=== PATIENT | female | born 1965 | race Caucasian/White ===

== ENCOUNTER → 2018-02-21 15:55 | Outpatient (CLI) | payer BC, SELFPAY ==
--- NOTE | 2018-02-21 16:06 | XR_ITS ---
XR foot LT min 3V HISTORY: Pain and swelling on the lateral side of foot ITS.REASON: LEFT FOOT PAIN ORDERING PHYSICIAN: Bette Ko PATIENT AGE: 52 years COMPARISON: None FINDINGS: There is a nondisplaced transverse fracture at the proximal aspect of the fifth metatarsal. There is good alignment. There may be some minimal callus formation developing laterally seen on the AP view. There is mild soft tissue swelling at this region. There is a calcaneal spur at 11 mm. IMPRESSION: Nondisplaced transverse fracture base of fifth metatarsal with some minimal callus formation lateral
== END ==
PROVIDERS: PCP Nurse Practitioner; Visit Provider Nurse Practitioner
DX: M79.672 Pain in left foot (principal)
CPT/HCPCS: 73630

== ENCOUNTER → 2018-03-23 10:06 | Outpatient (CLI) | payer BC, SELFPAY ==
--- NOTE | 2018-03-23 10:16 | XR_ITS ---
XR foot LT min 3V HISTORY: Follow-up fracture ITS.REASON: LT FOOT PAIN ORDERING PHYSICIAN: Bette oK PATIENT AGE: 52 years COMPARISON: 02/21/2018 FINDINGS: Nondisplaced transverse fracture involves the proximal shaft of the fifth metatarsal. There is some callus formation along the inferior aspect of the fracture as seen on the lateral view. Fracture line is still visible. IMPRESSION: Healing fracture nondisplaced proximal shaft of fifth metatarsal
--- NOTE | 2018-03-23 10:16 | XR_ITS ---
XR ankle LT min 3V HISTORY: Pain ITS.REASON: LEFT FOOT PAIN ORDERING PHYSICIAN: Bette Ko PATIENT AGE: 52 years Comparison: None FINDINGS: There is a faint lucency noted along the lateral aspect of the calcaneus on the AP view. This is not demonstrated on the additional views. Possibly due to a nondisplaced avulsion-type fracture. This is not reduplicated on the images of the foot. No other significant anomalies are evident. IMPRESSION: Possible nondisplaced avulsion-type fracture of the lateral mid aspect of the calcaneus
== END ==
PROVIDERS: PCP Nurse Practitioner; Visit Provider Nurse Practitioner
DX: M79.672 Pain in left foot (principal)
CPT/HCPCS: 73610; 73630

== ENCOUNTER → 2018-04-21 11:29 | Outpatient (CLI) | payer BC, SELFPAY ==
--- NOTE | 2018-04-21 11:35 | XR_ITS ---
XR ankle LT min 3V HISTORY: ITS.REASON: LEFT FOOT PAIN ORDERING PHYSICIAN: Bette Ko PATIENT AGE: 53 years Comparison: 03/23/2018 FINDINGS: There is a healing fracture involving the base of the fifth metatarsal. Mild degenerative changes are present at the ankle. No ankle fracture or dislocation evident. Previously described lucency of the calcaneus laterally is not apparent on today's exam. IMPRESSION: Degenerative changes, no acute finding
--- NOTE | 2018-04-21 11:35 | XR_ITS ---
XR foot LT min 3V HISTORY: ITS.REASON: LEFT FOOT PAIN ORDERING PHYSICIAN: Bette Ko PATIENT AGE: 53 years COMPARISON: 03/23/2018 FINDINGS: There is a healing transverse fracture involving the proximal aspect of the fifth metatarsal. The fracture line is somewhat less apparent. There is good alignment of the fracture fragments. Degenerative changes are present in the midfoot. There is 8 mm calcaneal spur and an enthesophyte at the Achilles insertion as before. IMPRESSION: Healing fifth metatarsal fracture
== END ==
PROVIDERS: PCP Nurse Practitioner; Visit Provider Nurse Practitioner
DX: M79.672 Pain in left foot (principal)
CPT/HCPCS: 73610; 73630

== ENCOUNTER → 2018-05-23 13:18 | Outpatient (CLI) | payer BC, SELFPAY ==
--- NOTE | 2018-05-23 13:24 | XR_ITS ---
XR foot LT min 3V HISTORY: Follow-up fracture ITS.REASON: LT FOOT PAIN ORDERING PHYSICIAN: Bette Ko PATIENT AGE: 53 years COMPARISON: 04/21/2018 FINDINGS: Healing fractures present the base of the fifth metatarsal. Fracture line is somewhat less apparent. No new abnormalities evident. There is a calcaneal spur and a enthesophyte at the calcaneus. IMPRESSION: Healing fifth metatarsal fracture with good alignment
== END ==
PROVIDERS: PCP Nurse Practitioner; Visit Provider Nurse Practitioner
DX: M79.672 Pain in left foot (principal)
CPT/HCPCS: 73630

== ENCOUNTER 2018-05-30 08:30 | Outpatient (RCR) | payer BC, SELFPAY | END 2018-05-30 08:35 | disposition home or self-care (01) | LOC: PT 08:30 | PROVIDERS: Visit Provider Podiatrist | DX: S99.192A Other physeal fracture of left metatarsal, initial encounter for closed fracture (principal); M79.672 Pain in left foot; M76.72 Peroneal tendinitis, left leg | CPT/HCPCS: 97033; 97035; 97110; 97163 ==

== ENCOUNTER → 2018-06-27 11:01 | Outpatient (CLI) | payer BC, SELFPAY ==
--- NOTE | 2018-06-27 11:09 | XR_ITS ---
XR foot LT min 3V, XR ankle LT min 3V Ordering Physician: Mag Silva MD Patient Age: 53 years: Female HISTORY: ITS.REASON: LEFT FOOT PAIN,DELAYED HEALING LEFT FOOT FX TECHNIQUE: Left ankle 3 views Left foot 3 views COMPARISON :April 21, 2018 left ankle and left foot ========= LEFT ANKLE joint space is well-maintained. The medial and lateral and posterior malleolus intact. . On the frontal projection there is a slight lucent appearance at the medial corner of the talus which initially raise question regarding subtle possible osteochondral irregularity here.. Although less evident on the oblique view I believe a similar feature was present April 21 study. This likely does reflect a tiny 4 mm active chondral defect or cystic feature at the medial dome of talus. Mild sclerosis also noted about this region. MR is best evaluate osteochondral irregularities of the talus if if desire further evaluation and if pain at ankle.. There are some questioned on previous studies regarding calcaneus. It appears intact. The generous plantar calcaneal spur measuring up to 10 mm length is again noted as well as the spurring, and thus off the insertion of Achilles tendon. These are stable feature -------IMPRESSION------ Left Ankle Suspect subtle tiny 4 mm osteochondral defect or subchondral cyst, just beneath medial corner of the talus. . ======= LEFT FOOT we again see the healing fracture transversing the proximal fifth metatarsal. Towards the base. Sclerotic changes are seen about this area with the fracture line less evident reflecting progressive healing. Toes are intact. Tarsals otherwise appear stable and unremarkable. IMPRESSION----Left Foot.----- Progressive healing at the fracture proximal fifth metacarpal
== END ==
PROVIDERS: PCP Family Medicine; Visit Provider Family Medicine
DX: S92.902G Unspecified fracture of left foot, subsequent encounter for fracture with delayed healing (principal); M79.672 Pain in left foot
CPT/HCPCS: 73610; 73630

== ENCOUNTER → 2018-07-27 12:41 | Outpatient (CLI) | payer BC, SELFPAY ==
--- NOTE | 2018-07-27 12:45 | XR_ITS ---
XR foot wt bearing LT 3V HISTORY: Pain , follow-up fracture ITS.REASON: fracture follow up ORDERING PHYSICIAN: Debbie Gambino DPM PATIENT AGE: 53 years COMPARISON: 06/27/2018 FINDINGS: There is a healing fracture involving the proximal aspect of the fifth metatarsal. Fracture line is somewhat less apparent than when compared to the previous exam. There are hypertrophic changes of the distal aspect of the first metatarsal and the dorsal aspect of the navicular. Calcaneal spur is also noted. IMPRESSION: Healing fifth metatarsal fracture
--- NOTE | 2018-07-27 12:51 | XR_ITS ---
XR ankle LT min 3V HISTORY: ITS.REASON: DELAYED HEALING FX ORDERING PHYSICIAN: Debbie Gambino DPM PATIENT AGE: 53 years Comparison: None FINDINGS: No fracture or dislocation. No lytic or blastic change. There is normal mineralization.. There is a question of a subtalar lucency medially as previously described. Calcaneal spurs noted. IMPRESSION: Nonspecific subtalar lucency medially which may be better evaluated with MRI if clinically desired
== END ==
PROVIDERS: PCP Nurse Practitioner; Visit Provider Podiatrist
DX: T14.8XXA Other injury of unspecified body region, initial encounter (principal)
CPT/HCPCS: 73610; 73630

== ENCOUNTER → 2018-09-12 09:21 | Outpatient (CLI) | payer BC, SELFPAY ==
--- NOTE | 2018-09-12 09:25 | MM_ITS ---
MM Dig screening mamm BI w/CAD CAD Screening COMPARISON: Digital mammograms with CAD 09/10/2014 and 6 month follow-up right breast 03/26/2015 INDICATION: There is a history of breast cancer patient maternal aunt diagnosed after menopause. TECHNIQUE: Standard CC and MLO images were obtained. R2 CAD reviewed. FINDINGS: Moderate heterogenic fibroglandular densities are seen in the central portions of both breasts. There are stable scattered benign-appearing microcalcifications in each breast many of which appear to be typical of sclerosing adenosis. There is no suspicious lesion and there are no suspicious microcalcifications. There are small nodes in both axilla. IMPRESSION: Moderate heterogenic breast density with no suspicious lesion seen BI-RADS Category: 2 Benign Finding(s) RECOMMENDED FOLLOW-UP: 1YR - 1 YEAR FOLLOW-UP (A letter has been sent to the patient regarding results of the study.)
== END ==
PROVIDERS: PCP Nurse Practitioner; Visit Provider Nurse Practitioner
DX: Z12.31 Encounter for screening mammogram for malignant neoplasm of breast (principal)
CPT/HCPCS: 77067

== ENCOUNTER → 2018-11-14 08:42 | Outpatient (CLI) | payer BC, SELFPAY ==
--- NOTE | 2018-11-14 08:44 | MR_ITS ---
MR ankle LT wo/w con ITS.REASON: evaluate for insertional peroneal tendinitis. INDICATION: Left ankle and foot pain and swelling ORDERING PHYSICIAN: Debbie Gambino DPM PATIENT AGE: 53 years Comparison: 07/27/2018 TECHNIQUE: Routine multiplanar multiecho sequences are formed without and with contrast FINDINGS: There is a healing fifth metatarsal fracture at the base of the fifth metatarsal. Increased T2 signal is present in the subcortical region of the talus along its medial aspect measuring approximately 10 mm AP and 6 mm transverse suspicious for an area of osteonecrosis. The anterior-posterior tibiofibular ligaments and the anterior posterior talofibular ligaments appear intact. Deltoid ligament also appears intact. The peroneal brevis has a flattened concave appearance at the tip of the fibula with increased T2 signal just distal to this region which may be seen with partial tear of the peroneal brevis. The peroneal longus tendon is thickened with increased T2 signal just distal to the tip of the fibula and may be discontinuous just distal to this region. There is increased longitudinal T2 signal within the tendon at this area as well. There is increase soft tissue T2 signal at this region as well as increase in T2 signal involving the subcortical portion of the calcaneus at this area. The posterior tibialis, flexor's digitorum longus and flexor hallucis longus tendons as well as the anterior extensor tendons appear intact. Small amount of fluid is present within the subtalar joint in the mid aspect. Small amount fluid is also present along the posterior aspect of the talocalcaneal region. IMPRESSION: 1. There is a split tear in the peroneal longus tendon at and just distal to the tip of the fibula with diffuse increased T2 signal distal to this region suspicious for a complete tear/severe tendinitis. There is some adjacent edema within the calcaneus at this area and may be due to inflammation from the tendinitis or bone contusion. 2. Deformity of the peroneal brevis tendon distal to the tip of the fibula consistent with tendinopathy with possible partial split tear. This tendon is not appear to be completely torn 3. Osteonecrosis of the talar dome medially. 4. Old fifth metatarsal fracture
--- NOTE | 2018-11-14 08:44 | MR_ITS ---
MR foot LT wo/w con CLINICAL INDICATION: Foot pain, lateral foot pain and swelling ITS.REASON: evaluate for insertional peroneal tendinitis. ORDERING PHYSICIAN: Debbie Gambino DPM PATIENT AGE: 53 years Comparison: 07/27/2018 TECHNIQUE: Routine multiplanar multiecho sequences are performed without and with contrast. FINDINGS: There is a healed fracture involving the base of the fifth metatarsal. There are numerous small areas of increased T2 signal involving the head of the fifth metatarsal, medial, intermediate, and lateral cuneiforms, and cuboid. These areas appear to enhance on the fat-sat post contrast enhanced images. Etiology is indeterminate. It is minimally represent areas of subcortical cystic change however, the question 1 enhancement is somewhat concerning. Suggest correlation with a recent radiograph. The most recent study is July 2018. IMPRESSION: 1. Multiple small T2 hyperintensities of the tarsal bones as described above appear to enhance. Suggest correlation with radiograph for further evaluation. Infectious or neoplastic process is a consideration. Subarticular cystic changes/disuse osteoporosis with pseudoenhancement is also considered.
== END ==
PROVIDERS: PCP Nurse Practitioner; Visit Provider Podiatrist
DX: M76.72 Peroneal tendinitis, left leg (principal); S99.192A Other physeal fracture of left metatarsal, initial encounter for closed fracture
CPT/HCPCS: 73720; 73723; A9576

== ENCOUNTER → 2018-11-22 09:29 | Outpatient (CLI) | payer BC, SELFPAY ==
--- NOTE | 2018-11-22 09:42 | XR_ITS ---
XR chest 2V HISTORY: ITS.REASON: HTN ORDERING PHYSICIAN: Debbie Gambino DPM PATIENT AGE: 53 years COMPARISON: None FINDINGS: The cardiomediastinal silhouette and pulmonary vascularity are within normal limits. Nodule is present in left perihilar region consistent with calcified granuloma. This measures 10 mm. An additional granuloma is present in the left lung base laterally.. Degenerative changes of the AC joints and spine No acute bony abnormalities. IMPRESSION: No acute finding
[2018-11-22 10:35] LABS: Basophils # 0.1 K/mm3 (0-0.2); Basophils % 1.3 % (0.1-2.0); Eosinophils # 0.2 K/mm3 (0.0-0.4); Eosinophils % 2.7 % (0.1-12.0); Hematocrit 43.2 % (37.0-47.0); Hemoglobin 14.5 g/dL (12.2-16.2); Lymphocytes # 1.4 K/mm3 (0.7-4.5); Lymphocytes % 20.3 % (10-50); Mean Corpuscular HGB Conc 33.5 g/dL (31.8-35.4); Mean Corpuscular Hemoglobin 30.7 pg (27.0-31.2); Mean Corpuscular Volume 91.5 fl (81-99); Mean Platelet Volume 6.9 fl (7.4-10.4); Monocytes # 0.4 K/mm3 (0.1-1.0); Monocytes % 5.2 % (1.7-9.3); Neutrophils # 4.9 K/mm3 (1.8-7.8); Neutrophils % 70.6 % (37.0-80.0); Platelet Count 389 K/mm3 (142-424); Red Blood Count 4.73 M/mm3 (4.20-5.40); Red Cell Distribution Width 14.2 % (11.5-17.5); White Blood Count 6.9 K/mm3 (4.8-10.8)
[2018-11-22 11:33] LABS: Alanine Aminotransferase 33 U/L (12-78); Albumin Level 4.2 gm/dL (3.4-5.0); Albumin/Globulin Ratio 1.1 (1.1-1.8); Alkaline Phosphatase 98 U/L (46-116); Anion Gap 14.7 mEq/L (5-15); Aspartate Amino Transferase 17 U/L (15-37); Bilirubin,Total 0.5 mg/dL (0.2-1.0); Blood Urea Nitrogen 11 mg/dL (7-18); Calcium 9.4 mg/dL (8.5-10.1); Carbon Dioxide 29 mmol/L (21.0-32.0); Chloride 101 mmol/L (98-107); Creatinine,Serum 0.94 mg/dL (0.55-1.02); Estimated Glomerular Filt Rate 62 ml/min (>60); GFR (African American) 75 ML/MIN (>60); Globulin 3.7 gm/dl (1.3-3.2); Glucose 131 mg/dL (74-106); Potassium 4.7 mmoL/L (3.5-5.1); Sodium 140 mmol/L (136-145); Total Protein,Serum 7.9 gm/dL (6.4-8.2)
== END ==
PROVIDERS: PCP Family Medicine; Visit Provider Podiatrist
DX: Z01.818 Encounter for other preprocedural examination (principal); S86.312A Strain of muscle(s) and tendon(s) of peroneal muscle group at lower leg level, left leg, initial encounter
CPT/HCPCS: 36415; 71046; 80053; 85025

== ENCOUNTER 2018-11-25 10:52 | Day surgery (SDC) | payer BC, SELFPAY ==
[2018-11-24 11:57] VITALS: BMI 41.9
[2018-11-25] VITALS (10 sets, daily range): BP systolic 100–155; BP diastolic 54–84; PULSE 64–92; RESP 18–20; TEMP 37.2–43; O2SAT 93–97
--- NOTE | 2018-11-25 12:42 | XR_ITS ---
XR ankle LT 2V HISTORY: ITS.REASON: LEFT PERONEAL TENDON REPAIR,POSITIONING ORDERING PHYSICIAN: Debbie Gambino DPM PATIENT AGE: 53 years Comparison: 11/14/2018 FINDINGS: There is a posterior splint in place. Multiple skin clips are present laterally. There is good alignment. There are mild degenerative changes of the ankle joint anteriorly. IMPRESSION: Good alignment status post ankle surgery
--- NOTE | 2018-11-25 15:05 | XR_ITS ---
XR ankle LT min 3V HISTORY: ITS.REASON: Post Op L ankle scope, OCD talus ORDERING PHYSICIAN: Debbie Gambino DPM PATIENT AGE: 53 years Comparison: 11/14/2018 Fluoroscopy time: 9 seconds FINDINGS: 2 images are submitted demonstrating a needle present along the anterior aspect of the ankle joint medially. This was performed for a marker. IMPRESSION: C-arm guidance for ankle surgery
--- NOTE | 2018-11-25 16:06 | HMH.ANESI ---
[facility] Anesthesia Record Part I Intake, IV Amount: 1,200 Estimated blood loss (mL): 10 Urine output (mL): 0 Blood Products used (#): none Blood Pressure: 100/54 SaO2: 94 Pulse Rate: 92 Respiratory Rate: 18 Temperature: 99.5 F Patient is:: Drowsy, Nasal O2, Stable Stable to PACU at:: 16:01
--- NOTE | 2018-11-25 16:08 | P.PN_ITS ---
[facility] Anesthesia Record Part II Discharge Time: 16:11 Destination: Surgical Day Care (OP Surgery) PACU nurse assessment reviewed?: Yes Patient Condition:: Good Anesthesia Complications:: None Swallowing reflex intact?: Yes Cyanosis?: No
--- NOTE | 2018-11-25 16:08 | HMH.ANESCL ---
[facility] Anesthesia Checklist - Patient Identification Patient Identification: Arm Band, Verbal (Name & ) - Structural Data Admitted From: Home Planned Operative Procedure/s: ankle Consent for Planned Operative Procedure(s) Verified: Yes Verified Documents: History and Physical - NPO Status Verified Time NPO: 00:00 - Additional verifications Patient : No Anesthesia Reactions: No Hx Blood Transfusions: No Blood Transfusion Reaction: No Cephalosporin Allergy: No Previous Colonoscopy: No - Cardiovascular Assessment Heart Sounds: S1 & S2 Pulse Strength: Baseline Pulse Rhythm: Regular Peripheral Edema: No - Airway Assessment C-Spine Mobility Assessed: Yes TMJ Mobility Assessed: Yes Dentition: Good Dentition - Neurological Assessment Level of Consciousness: Awake, Alert, Appropriate Hx Seizures: No Numbness or tingling in extremities: No - Anesthesia Plan Anesthesia Risk discussed: Yes ASA Class: II Anesthesia Type: General [facility] History I have reviewed the patient's past medical history: Yes Medical History: Reports:: Anxiety, Hyperlipidemia, Hypertension Denies:: Cancer, Diabetes Mellitus Type 1, Diabetes Mellitus Type 2, Internal Pacemaker, MRSA, Seizures *Have you ever received a pneumonia vaccine?: No *Have you received a flu vaccine this season?: Yes Other Medical History: Reports: Arthritis, Hypothyroidism. Denies: Blood Transfusion Reaction Laterality Cases: Right: Arthroscopy Shoulder, Bilateral: Carpal Tunnel Release, Tonsillectomy Other Surgeries: Yes: No Previous Surgery, , Hysterectomy-Total. No: Pacemaker Amputation: No Fractures: Yes - *Social History Educational Level: Completed High School Smoking Status: Never smoker Alcohol Intake: never Alcohol Intake Frequency:: other Substance Use Type: denies use *Occupational Status:: employed Housing: house Household Members: significant other *Travel in the last 8 weeks: None - Psychiatric History Expresses thoughts of harming self/others: None Suicide Plan Description: No Plan Pschychiatric History:: Reports:: Anxiety Family Hx:: Diabetes, Cancer, Hypertension, Hyperlipidemia, Heart Attack, Stroke, Thyroid Disorder
--- NOTE | 2018-11-25 16:20 | HMH.OPNOTE ---
Date of procedure: 11/25/18 Pre-op Diagnosis:: 1. Left peroneus brevis tendon tear 2. Left peroneus longus tendon rupture 3. 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 Left foot synovitis Post-op Diagnosis:: Same Procedure performed:: 1. Left peroneus brevis tendon repair 2. Left peroneus longus tendon repair 3. Left peroneal tendon (longus to brevis transfer) anastomosis 4. Left foot synovectomy 5. Left ankle arthroscopy 6. Left ankle arthrotomy, microfracture/chondral drill talus OCD Surgeon:: Debbie Gambino DPM Anesthesia: regional, LMA Estimated blood loss (mL): 50 Clinical Note:: Pre-op Left Peroneal Tendon Repair, Talus OCD: MRI left ankle/foot, 11/14/18: IMPRESSION: 1. There is a split tear in the peroneal longus tendon at and just distal to the tip of the fibula with diffuse increased T2 signal distal to this region suspicious for a complete tear/severe tendinitis. There is some adjacent edema within the calcaneus at this area and may be due to inflammation from the tendinitis or bone contusion. 2. Deformity of the peroneal brevis tendon distal to the tip of the fibula consistent with tendinopathy with possible partial split tear. This tendon is not appear to be completely torn. 3. Osteonecrosis of the talar dome medially. 4. Old fifth metatarsal fracture The patient has tried immobilization, modification of shoe gear, strapping, inserts, ice, elevation, and NSAIDs. She has also tried ankle bracing and home physical therapy. After a long discussion with the patient in regards to the conservative versus surgical treatment for the tendon tear/deformity, the patient has elected to proceed with surgery because they have failed conservative treatment and continue to have pain and worsening symptoms affecting daily activities. The patient has been instructed on the planned procedure, all risk versus benefits of the procedure discussed. These include but are not limited to: bleeding, infection, nerve and blood vessel damage, need for further surgery, delay in healing of soft tissue or bone, tendon re-rupture, failure of bones to heal, non-union, mal-union, failure of the implant, prolonged pain and recovery, CPRS/RSD, DVT and anesthetic complications. No guarantees were given. All questions fully answered. The patient verbalized understanding and agreed to proceed with surgery. Written consent was obtained. She has a walker. Needs crutches. Recommend RKS. We discussed DVT prophylaxis and risks and benefits of blood clots. I recommend prophylaxis with Lovenox 40mg #20 due to her risk of immobilization x 6-8 weeks, morbid obesity. Rx for Bonita 7.5mg # 30, Zofran 4mg # 30, Motrin 800mg # 60 given. Operative findings:: Left ankle medial talar dome had OCD lesion. Synovitic scar tissue noted in the ankle joint. Lateral left foot proneness brevis had a longitudinal tear, 3-4 cm long. In the peroneal tendon groove on the calcaneus there was erosions noted with degenerative changes. Significant synovitis noted to the left foot around the peroneal tendon sheath and around the tendons directly. Peroneus longus tendon had a rupture with a bulbous fibrous scar noted distally. The longus also had longitudinal splits consistent with complete rupture x3 at the level of the distal fibula. The tear extended proximally 10 cm. There was a low-lying brevis muscle belly with some muscle atrophy noted distally. Operative note:: On this date and time, the patient was deemed an appropriate surgical candidate. With informed consent signed, the patient was taken to the operating theater after a pre-op regional popliteal nerve block was given by anesthesia. The patient was positioned supine. General anesthesia was induced. Tourniquet was applied to the LEFT mid calf. The lower extremity was prepped and draped in normal sterile fashion. LEFT ANKLE ARTHROSCOPY: Attention was directed to the anterior left ankle where the DP artery, saphenous vein, tibialis anterior tendon, s
--- NOTE | 2018-11-25 16:26 | P.OP_ITS ---
Date of procedure: 11/25/18 Pre-op Diagnosis:: 1. Left peroneus brevis tendon tear 2. Left peroneus longus tendon rupture 3. 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 Left foot synovitis Post-op Diagnosis:: Same Procedure performed:: 1. Left peroneus brevis tendon repair 2. Left peroneus longus tendon repair 3. Left peroneal tendon (longus to brevis transfer) anastomosis 4. Left foot synovectomy 5. Left ankle arthroscopy 6. Left ankle arthrotomy, microfracture/chondral drill talus OCD Surgeon:: Debbie Gambino DPM Anesthesia: regional, LMA Estimated blood loss (mL): 50 Clinical Note:: Pre-op Left Peroneal Tendon Repair, Talus OCD: MRI left ankle/foot, 11/14/18: IMPRESSION: 1. There is a split tear in the peroneal longus tendon at and just distal to the tip of the fibula with diffuse increased T2 signal distal to this region suspicious for a complete tear/severe tendinitis. There is some adjacent edema within the calcaneus at this area and may be due to inflammation from the tendinitis or bone contusion. 2. Deformity of the peroneal brevis tendon distal to the tip of the fibula consistent with tendinopathy with possible partial split tear. This tendon is not appear to be completely torn. 3. Osteonecrosis of the talar dome medially. 4. Old fifth metatarsal fracture The patient has tried immobilization, modification of shoe gear, strapping, inserts, ice, elevation, and NSAIDs. She has also tried ankle bracing and home physical therapy. After a long discussion with the patient in regards to the conservative versus surgical treatment for the tendon tear/deformity, the patient has elected to proceed with surgery because they have failed conservative treatment and continue to have pain and worsening symptoms affecting daily activities. The patient has been instructed on the planned procedure, all risk versus benefits of the procedure discussed. These include but are not limited to: bleeding, infection, nerve and blood vessel damage, need for further surgery, delay in healing of soft tissue or bone, tendon re-rupture, failure of bones to heal, non-union, mal-union, failure of the implant, prolonged pain and recovery, CPRS/RSD, DVT and anesthetic complications. No guarantees were given. All questions fully answered. The patient verbalized understanding and agreed to proceed with surgery. Written consent was obtained. She has a walker. Needs crutches. Recommend RKS. We discussed DVT prophylaxis and risks and benefits of blood clots. I recommend prophylaxis with Lovenox 40mg #20 due to her risk of immobilization x 6-8 weeks, morbid obesity. Rx for [facility] 7.5mg # 30, Zofran 4mg # 30, Motrin 800mg # 60 given. Operative findings:: Left ankle medial talar dome had OCD lesion. Synovitic scar tissue noted in the ankle joint. Lateral left foot proneness brevis had a longitudinal tear, 3-4 cm long. In the peroneal tendon groove on the calcaneus there was erosions noted with degenerative changes. Significant synovitis noted to the left foot around the peroneal tendon sheath and around the tendons directly. Peroneus longus tendon had a rupture with a bulbous fibrous scar noted distally. The longus also had longitudinal splits consistent with complete rupture x3 at the level of the distal fibula. The tear extended proximally 10 cm. There was a low-lying brevis muscle belly with some muscle atrophy noted distally. Operative note:: On this date and time, the patient was deemed an appropriate surgical candidate. With informed consent signed, the patient was taken to the operating theater after a pre-op regional popliteal nerve block was given by anesthesia. The patient was positioned supine. General anesthesia was induced. Tourniquet was applied
--- NOTE | 2018-11-25 16:32 | PC.NURSE ---
1611- pt drowsy, wakin up at this time responds to commands. denies any pain/
--- NOTE | 2018-11-25 17:00 | PC.NURSE ---
1615- rad @ bedside getting post-op x rays. pt girish well. 1617- dr jon @ bedside talking w/ pt.
== END 2018-11-25 17:02 | disposition home or self-care (01) ==
LOC: OR 10:52
PROVIDERS: PCP Nurse Practitioner; Visit Provider Podiatrist
PROC: (CPT 27659; principal; 2018-11-25 13:00)
DX: M93.272 Osteochondritis dissecans, left ankle and joints of left foot (principal); S86.312A Strain of muscle(s) and tendon(s) of peroneal muscle group at lower leg level, left leg, initial encounter; S93.692A Other sprain of left foot, initial encounter
CPT/HCPCS: 27659 ×2; 28086; 73600; 73610; 76000; 93005; 96374; C1762; J2405

== ENCOUNTER 2019-04-24 13:00 | Outpatient (RCR) | payer BC, SELFPAY ==
--- NOTE | 2019-02-06 16:02 | HMH.PTOPEV ---
PT Outpatient Evaluation Rehab PT Outpatient Evaluation Start: 02/06/19 14:07 Freq: Status: Active Protocol: Document 02/06/19 14:09 HELENE (Rec: 02/06/19 16:02 HELENE [id number]) Electronically Signed By Kody Santos, PT 02/06/19 14:09 Outpatient Therapy Subjective History Subjective History Pt presents s/p L ankle peroneal brevis repair/longus repair, and t/f longus tendon to brevis tendon ~7 weeks ago. Pt reports WBAT w/cam walker, and reports lingering L ankle post-op pain, swelling, and swelling, but 'it's feeling pretty'. Pt reports initial injury occurred in Mar, fx of 5th metatarsal, however, discovery of tendon damage via MRI only happened ~2 months ago. Chief Complaint Pain,Stiff,Swelling, Paresthesia,Weakness Symptom Type Ache,Dull,Numbness,Tingling Symptoms Relieved By Rest/Positioning,Ice Symptoms Aggravated By Standing,Walking Prior Functional Limitations Housework,Standing,Walking, Stairs Current Functional Limitations Lifting,Standing,Walking, Stairs Symptom Description Constant but Variable Level of pain today (0-10) 2 Pain scale - at its best (0-10) 1 Pain scale - at its worst (0-10) 6 Ankle/Foot Eval Gait Observation General Gait Pattern Observation Antalgic Gait Palpation Tenderness left Ankle/Foot Palpation Findings Tenderness Ankle/Foot Palpation Overall Comment sx. incision area/peroneals 2- 3/4, 2nd/3rd metatarsal shaft ROM Ankle/Foot Dorsiflexion w/Knee Extended 0-8 Active Range Motion (degrees) Ankle/Foot Plantar Flexion Active Range 0-30 of Motion (degrees) Ankle/Foot Eversion Active Range of 0 Motion (degrees) Ankle/Foot Inversion Active Range of 0-40 Motion (degrees) Ankle/Foot ROM Limitations Soft Tissue Tightness,Pain MMT Ankle Dorsiflexion Strength Grade 4- Good- Ankle Plantarflexion Strength Grade 4- Good- Foot Eversion Strength Grade 3+ Fair+ Foot Inversion Strength Grade 4- Good- Outpatient Therapy Assessment Impairments Problems/Impairmments Palpation Tenderness,Impaired Range of Motion,Impaired Strength,Impaired Gait Pattern ,Impaired Walking,Impaired Standing,Impaired Household
--- NOTE | 2019-03-08 14:19 | HMH.RHREAS ---
Rehab Reassessment Rehab OP Re-assessment Start: 03/08/19 14:08 Freq: Status: Active Protocol: Document 03/08/19 14:08 HELENE (Rec: 03/08/19 14:19 [email or web address] [id number]) Electronically Signed By Kody Santos, PT 03/08/19 14:08 Rehab Re-assessment Subjective Subjective PT REPORTS 1-2/10 L FOOT/ANKLE PAIN ON VAS, AND FEELS 60% BETTER OVERALL FUNCTIONALLY SINCE I EVAL Objective Objective Notes AROM: L ANKLE DF 0-10, PF 0-40 , INV 0-35, EVR 0-15 MMT: L DF 4-4+/5, PF 4+/5, INV 4/5, EVR 4/5 TTP: L FOOT PROX TO 5TH METHEAD 4/4-HYPERSENSITIVE GAIT: MINIMALLY ANTALGIC W/R LACE UP FIG 8 ANKLE BRACE Assessment Progress Assessment Progressing as Expected Assessment Notes PT W/IMPROVED STRENGTH, ROM, AND GAIT PATTERN Patient goals met STG'S 01/16 Goals Not Met STG'S 07/19, LTG'S 05/22 Plan Plan PT TO CONT. W/SKILLED P.T. TO MAKE FURTHER IMPROVEMENTS IN AROM, STRENGTH, TTP, AND GAIT TO ALLOW FOR OPTIMAL FUNCTION Frequency of Therapy 1-2X/WK Duration of therapy 4-6 WKS Time and Billing Re-Eval Time 15 Re-Eval Billing Units 1 PHYSICIAN CERTIFICATION: I certify the specified therapy services for Zoila Espinoza are required, authorized, and reviewed every 30 days.
--- NOTE | 2019-04-05 14:36 | HMH.RHREAS ---
Rehab Reassessment Rehab OP Re-assessment Start: 03/08/19 14:08 Freq: Status: Active Protocol: Document 04/05/19 14:30 HELENE (Rec: 04/05/19 14:36 HELENE [id number]) Electronically Signed By Kody Santos, PT 04/05/19 14:30 Rehab Re-assessment Subjective Subjective PT REPORTS 4-6/10 L ANKLE/FOOT PAIN ON VAS, AND FEELS A DECREASE IN FUNCTION SINCE LAST REASSESSMENT. Objective Objective Notes TTP: L ANT TIB TENDON/ INSERTION 3/4, L ACHILLES INSERTION 2/4, L PERONEAL INSERTION 4/4-HYPERSENSITIVE( CRPS) MMT: L DF 4+/5, L PF 4-4+/5, INV 4-/5, EVR 4-/5 FIG 8: 57.5CM L GAIT: MODERATELY ANTALGIC W/ OR W/O BRACE Assessment Progress Assessment Slower Than Expected Assessment Notes INCREASED SWELLING AND TTP INVOLVING ANT TIB, WELL RECURRENT 'SPASMS' IN THAT SAME AREA HAVE COMMUNICATED PROGRESS CONCERNS W/REFERRING MD, FOLLOW-UP 04/11 Patient goals met STG'S 01/16 Goals Not Met STG'S 07/19, LTG'S 05/22 Plan Plan PT TO CONT. W/SKILLED P.T. TO MAKE FURTHER IMPROVEMENTS IN AROM, STRENTGH, AND TTP TO ALLOW FOR OPTIMAL FUNCTION Frequency of Therapy 1-2X/WK Duration of therapy 3-4 WKS Time and Billing Re-Eval Time 15 Re-Eval Billing Units 1 PHYSICIAN CERTIFICATION: I certify the specified therapy services for Zoila Espinoza are required, authorized, and reviewed every 30 days.
== END 2019-04-24 13:35 | disposition home or self-care (01) ==
LOC: PT 13:00
PROVIDERS: PCP Nurse Practitioner; Visit Provider Podiatrist
DX: Z98.890 Other specified postprocedural states (principal); M79.672 Pain in left foot
CPT/HCPCS: 97010; 97014; 97016; 97033; 97035; 97110; 97112; 97140; 97163; 97164; 97760; G0283

== ENCOUNTER → 2019-06-20 09:57 | Outpatient (CLI) | payer BC, SELFPAY ==
--- NOTE | 2019-06-20 10:05 | XR_ITS ---
PROCEDURE: XR ANKLE WT BEARING LT MIN 3V CLINICAL INDICATION: post-op pain COMPARISON: ANKCMLT XR ankle LT min 3V from 04/21/2018 ANKCMLT XR ankle LT min 3V from 06/27/2018 ANKCMLT XR ankle LT min 3V from 07/27/2018 FINDINGS: There is no acute fracture or dislocation. 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 Small subchondral cysts of medial greater than lateral talar dome are noted probably associated with osteoarthritis. Degenerative dorsal posterior and plantar calcaneal spurring is noted. IMPRESSION: Multiple degenerative findings as described. No acute findings. Dictated by: Lefi Enriquez 06/20/2019 11:25 Electronically signed by Leif Enriquez in [place] 06/20/2019 11:25
--- NOTE | 2019-06-20 10:05 | XR_ITS ---
PROCEDURE: XR FOOT WT BEARING LT 3V CLINICAL INDICATION: post-op pain COMPARISON: [id number] XR foot LT min 3V from 04/21/2018 [id number] XR foot LT min 3V from 05/23/2018 [id number] XR foot LT min 3V from 06/27/2018 [id number] XR foot wt bearing LT 3V from 07/27/2018 FINDINGS: No fracture or dislocation. No lytic or blastic change. There is normal mineralization. There is multi joint osteoarthritis including tibiotalar joint and joints of the midfoot and the interphalangeal joints and 1st metatarsophalangeal joint. Other findings:Degenerative dorsal posterior and plantar calcaneal spurring is noted. 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 IMPRESSION: Multiple degenerative findings with no acute bone pathology. Dictated by: Leif Enriquez 06/20/2019 11:29 Electronically signed by Leif Enriquez in [place] 06/20/2019 11:29
== END ==
PROVIDERS: PCP Nurse Practitioner; Visit Provider Podiatrist
DX: Z98.890 Other specified postprocedural states (principal); M25.572 Pain in left ankle and joints of left foot
CPT/HCPCS: 73610; 73630

== ENCOUNTER → 2021-06-02 08:58 | Outpatient (CLI) | payer MEDICARE, BC, SELFPAY ==
--- NOTE | 2021-06-02 09:06 | MM_ITS ---
PROCEDURE INFORMATION: Exam: MG Bilateral Screening 3D Mammography Exam date and time: 06/02/2021 9:06 AM Age: 56 years old Clinical indication: Encounter for screening mammogram for malignant neoplasm of breast TECHNIQUE: Imaging protocol: Bilateral screening tomosynthesis and 2D mammography including computer-aided detection (CAD) when performed. COMPARISON: 1. MG SCBI MM Dig screening mamm BI w/CAD 09/12/2018 9:34 AM 2. MG DMDXUR DIG MAMM-DX UNI-RT 03/26/2015 1:25 PM FINDINGS: MAMMOGRAPHY: Breast composition: The breast tissue is heterogeneously dense, which may obscure small masses. Mass: None. Architectural distortion: None. Calcifications: No suspicious calcifications. Asymmetric density: None. Skin thickening: None. Axillary adenopathy: None. IMPRESSION: No mammographic evidence of malignancy. Annual screening is recommended unless otherwise clinically indicated. ASSESSMENT: BI-RADS Category 1: Negative
== END ==
PROVIDERS: PCP Nurse Practitioner Family; Visit Provider Nurse Practitioner Family
DX: Z12.31 Encounter for screening mammogram for malignant neoplasm of breast (principal)
CPT/HCPCS: 77063; 77067

== ENCOUNTER → 2021-06-15 13:41 | Outpatient (CLI) | payer MEDICARE, BC, SELFPAY | PROVIDERS: PCP Nurse Practitioner Family; Visit Provider Nurse Practitioner Family | DX: U07.1 COVID-19 (principal) | CPT/HCPCS: C9803; U0003; U0005 ==

== ENCOUNTER → 2021-11-06 15:00 | Outpatient (CLI) | payer MEDICARE, BC, SELFPAY | PROVIDERS: PCP Nurse Practitioner Family; Visit Provider Nurse Practitioner Family | DX: R00.0 Tachycardia, unspecified (principal) | CPT/HCPCS: 93225; 93226 ==

== ENCOUNTER → 2022-11-26 07:48 | Outpatient (CLI) | payer MEDICARE, SELFPAY ==
--- NOTE | 2022-11-26 07:52 | MM_ITS ---
PROCEDURE INFORMATION: Exam: MG Bilateral Screening 3D Mammography Exam date and time: 11/26/2022 8:16 AM Age: 57 years old Clinical indication: Screening mammogram TECHNIQUE: Imaging protocol: Bilateral Screening tomosynthesis and 2D mammography including computer-aided detection (CAD) when performed. COMPARISON: 1. MG MM DIG SCREENING MAMM BI W/CAD 06/02/2021 9:19 AM 2. MG SCBI MM Dig screening mamm BI w/CAD 09/12/2018 9:34 AM 3. MG DMDXUR DIG MAMM-DX UNI-RT 03/26/2015 1:25 PM 4. MG DMDXUR DIG MAMM-DX UNI-RT 10/17/2014 3:09 PM FINDINGS: MAMMOGRAPHY: Breast composition: The breast is heterogeneously dense, which may obscure small masses. Mass: None. Architectural distortion: No new or suspicious architectural distortion. Calcifications: Stable benign-appearing calcifications are present. No new or suspicious cluster of microcalcifications have developed. Asymmetric density: No new or suspicious asymmetric density is present Skin thickening: None. Axillary adenopathy: None. IMPRESSION: No mammographic evidence of malignancy. Recommend annual screening mammography unless otherwise clinically indicated. ASSESSMENT: BI-RADS category 2: Benign
== END ==
PROVIDERS: PCP Nurse Practitioner Family; Visit Provider Nurse Practitioner Family
DX: Z12.31 Encounter for screening mammogram for malignant neoplasm of breast (principal)
CPT/HCPCS: 77063; 77067

== ENCOUNTER → 2023-03-19 11:46 | Outpatient (CLI) | payer MEDICARE, SELFPAY ==
--- NOTE | 2023-03-19 11:51 | XR_ITS ---
FINAL REPORT CLINICAL HISTORY: ACUTE LEFT KNEE PAIN COMPARISON: None FINDINGS: RIGHT KNEE: 4 views of the right knee obtained. There is no acute fracture or dislocation. There are moderate degenerative changes. There is medial compartment narrowing. There is no soft tissue abnormality. IMPRESSION: No acute bony abnormality. Reviewed, Interpreted and Dictated by Lc Harkins III, MD Transcribed by Teresa Sheridan Authenticated and [facility]
== END ==
PROVIDERS: PCP Family Medicine; Visit Provider Family Medicine
DX: M25.562 Pain in left knee (principal)
CPT/HCPCS: 73562

== ENCOUNTER 2023-08-11 10:51 | Outpatient (CLI) | payer MEDICARE, SELFPAY ==
--- NOTE | 2023-08-11 10:57 | XR_ITS ---
FINAL REPORT CLINICAL HISTORY: left knee pain FINDINGS: Left knee Three views were obtained. There is no acute fracture or dislocation. There is severe tricompartment degenerative change. No joint effusion is identified. IMPRESSION: Severe degenerative changes. Reviewed, Interpreted and Dictated by Phuc Sage MD Transcribed by More Lizama Authenticated and [facility]
== END 2023-08-11 23:59 ==
PROVIDERS: PCP Nurse Practitioner; Visit Provider Orthopaedic Surgery
DX: M25.562 Pain in left knee (principal)
CPT/HCPCS: 73562

== ENCOUNTER 2023-10-30 20:58 | Emergency (ER) | payer MEDICARE, SELFPAY ==
[2023-10-30] VITALS (8 sets, daily range): BP systolic 131–172; BP diastolic 70–86; PULSE 60–73; RESP 18; TEMP 36.3; O2SAT 94–100; BMI 40.3
--- NOTE | 2023-10-30 21:21 | XR_ITS ---
PROCEDURE INFORMATION: Exam: XR Chest Exam date and time: 10/30/2023 9:30 PM Age: 58 years old Clinical indication: Shortness of breath and wheezing; Additional info: Wheezing, progresssive SOA and cough TECHNIQUE: Imaging protocol: Radiologic exam of the chest. Views: 2 views. COMPARISON: CR (CHEST PA, CHEST, CHEST PA) 11/22/2018 9:44 AM FINDINGS: Lungs: Stable calcified granuloma of the peripheral left lung base. Pleural spaces: No large effusion or pneumothorax. Heart/Mediastinum: Stable cardiac and mediastinal contours. Bones/joints: No evidence of acute osseous abnormalities within the visualized portions of the thoracic spine and ribs. Osseous structures appear appropriate for patient age. IMPRESSION: No dense parenchymal consolidation, pleural effusion, or pneumothorax.
--- NOTE | 2023-10-30 21:30 | ED_ITS ---
Discharge Plan Disposition Patient Disposition: Home, Self-Care Prescriptions Prescriptions: New prednisone 20 mg tablet 40 mg PO DAILY 5 Days Qty: 10 0RF amoxicillin-pot clavulanate 875-125 mg tablet 1 tab PO BID 7 Days Qty: 14 0RF azithromycin 500 mg tablet 500 mg PO DAILY 3 Days Qty: 3 0RF Rx Instructions: start on day 2 of therapy No Action cholecalciferol (vitamin D3) 50,000 unit capsule 50,000 mg PO DAILY 28 Days Qty: 8 zolpidem 10 mg tablet 10 mg PO DAILY 30 Days Qty: 30 duloxetine 60 mg capsule,delayed release(DR/EC) 60 mg PO DAILY 90 Days Qty: 90 amlodipine 10 mg tablet 10 mg PO DAILY 90 Days Qty: 90 levothyroxine 75 mcg tablet 75 mcg PO DAILY Qty: 90 atorvastatin 40 mg tablet 40 mg PO DAILY Qty: 90 ibuprofen 800 mg tablet 800 mg PO BID Qty: 60 3RF lisinopril-hydrochlorothiazide 20-25 mg tablet 1 tab PO Qty: 90 gabapentin 100 mg capsule 100 mg PO TID Qty: 30 0RF Rx Instructions: Start with one tablet daily then increase over next week diclofenac sodium [Voltaren] 1 % gel 4 g topical QID Qty: 30 2RF Rx Instructions: apply to single knee, ankle, foot; gently massage into area; for foot includes sole/toes/top of foot Referrals Follow up/Referrals: Bette Ko APRN [Primary Care Provider] - See instructions Activity Restrictions/Add. Instructions Additional Instructions/Restrictions: Call your family doctor to establish care for this visit to the emergency department and schedule follow-up within 48 hours to ensure improvement. If you have any worsening of your condition or any other concerning signs or symptoms, return to the emergency department or your primary care doctor for further evaluation. Augmentin twice daily for 7 days. Azithromycin once daily for 3 days. Prednisone each morning with plenty of food and water for 5 days. Clinical Impressions Clinical Impression: Pneumonia Discharge ED Provider: Camacho Capone General Adult HPI General Chief complaint: Upper Respiratory Infection Stated complaint: diff breathing Time Seen by Provider: 10/30/23 21:02 Mode of Arrival: Ambulatory Source of Information: Patient Limitations: No Limitations Description of Symptoms (Recalled from ER Triage Doc. by RN): Pt presents with URI symptoms. Non productive cough,congestion, wheezing since Wednesday. Tried OTC Mucinex and allergy relief medications with no relief. Denies any hx of COPD or asthma. Pt is 98% on ra atr this time, Dr Capone at bedside. History of Present Illness HPI narrative: 58-year-old female with history of hypertension, hyperlipidemia, diabetes, hypothyroidism presenting with shortness of breath and wheezing. Patient states she has had a nonproductive cough since about 5 days prior to this visit. She has been taking Mucinex, Benadryl, Zyrtec [id number], no relief. No fevers or chills, nausea or vomiting, chest pain. Please note that above description of symptoms, in this electronic medical record under categorization of recalled from ER triage doctor by RN are reflective of an initial nursing assessment, however, is not reflective of my full history and physical exam that was personally taken and clarified. Consequentially, this preceding description of symptoms, which may include the patient's categorized chief complaint in the EMR, do not reflect my personal clinical impression, and the ultimate description of history of present illness and patient stated complaints should be deferred to this section of the note. Unless stated otherwise or congruent with this section of the note, additional signs, symptoms, or incongruence should be interpreted as inaccurate with my clinical impression. Related Data Home Medications Medication Instructions Recorded Confirmed amlodipine 10 mg tablet 10 mg PO DAILY bp 90 days #90 tabs 04/28/18 08/12/23 cholecalciferol (vitamin D3) 1,250 50,000 mg PO DAILY supp;e 28 days 04/28/18 08/12/23 mcg (50,000 unit) capsule #8 caps duloxetine 60 mg capsule,delayed 60 mg PO DAILY mood 90 days #90 04/28/18 08/12/23 release caps zolpidem 10 mg tablet 10 mg PO DAILY sleep 30 days #30 04/28/18 08/12/23 tabs atorvastatin 40 mg tablet 40 mg PO DAILY Cholesterol #90 tabs 11/22/18 08/12/23 levothyroxine 75 mcg tablet 75 mcg PO DAILY thyroid #90 tabs 11/22/18 08/12/23 lisinopril 20 1 tab PO #90 tabs 06/20/19 08/12/23 mg-hydrochlorothiazide 25 mg tablet Previous Rx's Medication Instructions Recorded diclofenac sodium 1 % topical gel 4 g topical QID pain #30 grams 05/26/18 (Voltaren) ibuprofen 800 mg tablet 800 mg PO BID pain, mild #60 tabs 11/22/18 gabapentin 100 mg capsule 100 mg PO TID neuropathy #30 caps 06/20/19 amoxicillin 875 mg-potassium 1 tab PO BID 7 days #14 tabs 10/30/23 clavulanate 125 mg tablet azithromycin 500 mg tablet 500 mg PO DAILY 3 days #3 tabs 10/30/23 prednisone 20 mg tablet 40 mg (2 x 20 mg) PO DAILY 5 days 10/30/23 #10 tabs Allergies Allergy/AdvReac Type Severity Reaction Status Date / Time Penicillins Allergy Verified 08/12/23 09:04 [facility] Disclaimer: The information contained in this section may have been updated after the patient was seen, as this information can be updated by other users. Social History Smoking Status: Never smoker alcohol intake: never substance use type: denies use current occupational status: employed and disabled Travel in the last 8 weeks: None household members: significant other housing: house current occupation: [employer] caffeine: No ROS Obtained: Yes All systems reviewed & no additional complaints except as documented Physical Exam General General appearance: alert and in no apparent distress Head Head exam: atraumatic and normocephalic Eye Eye exam: Present normal appearance, PERRL and EOMI ENT ENT exam: Present mucous membranes moist Neck Neck exam: Present normal inspection, full ROM and trachea midline Respiratory Respiratory exam: Present wheezes, prolonged expiratory phase and other (Nontachypneic, saturating 97% on room air.); Absent respiratory distress, stridor or accessory muscle use Cardiovascular Cardiovascular exam: Present regular rate and normal rhythm Abdominal Exam Abdominal exam: Present soft; Absent distention, tenderness, guarding, rebound or rigidity Extremities Exam Extremities exam: Absent edema Neurological Exam Neurological exam: Present alert, oriented X3, CN II-XII intact and normal gait; Absent motor sensory deficit Skin Skin exam: Present warm and dry; Absent diaphoresis or erythema Medical Decision Making Medical Records Medical records reviewed: Yes I reviewed the patient's medical records. J Luis Inquiry Pt receiving controlled substance: No J Luis was queried for this patient: No Vital Signs: 10/30/23 20:59 10/30/23 21:59 10/30/23 22:11 Temperature 97.4 F L Temperature Source Oral Pulse Rate 60 73 Pulse Rate [Left] 70 Respiratory Rate 18 18 Blood Pressure 135/71 Blood Pressure [Right Arm] 172/86 H Blood Pressure Mean [Right Arm] 114 Blood Pressure Source Automatic Cuff Blood Pressure Source [Right Arm] Automatic Cuff Blood Pressure Position Sitting Blood Pressure Position [Right Arm] Sitting 02 Sat by Pulse Oximetry 97 100 Oxygen Delivery Method Room Air Room Air Lab Data Lab Results 10/30/23 21:22: VBG pH 7.44 H, VBG pCO2 33.3 L, VBG pO2 57.9 H, VBG HCO3 22.3 L, VBG Total CO2 23.3, VBG O2 Saturation 91.7 H, VBG Base Excess -1.8, VBG Lactic Acid 2.5 H 10/30/23 21:30: WBC 7.3, RBC 4.67, Hgb 14.6, Hct 45.2, MCV 96.8, MCH 31.2, MCHC 32.2, RDW 13.7, Plt Count 267, MPV 7.9, Neut % (Auto) 72.4, Lymph % (Auto) 18.8, [place] % (Auto) 4.5, Eos % (Auto) 3.0, Baso % (Auto) 1.3, Neut # (Auto) 5.3, Lymph # (Auto) 1.4, [place] # (Auto) 0.3, Eos # (Auto) 0.2, Baso # (Auto) 0.1, NT-Pro-B Natriuret Pep 75.1 10/30/23 21:47: Sodium 135 L, Potassium 4.3, Chloride 98, Carbon Dioxide 30, Anion Gap 11.3, BUN 14, Creatinine 0.70, Estimated Creat Clear 155, Estimated GFR 86, Est GFR ( Amer) 104, Glucose 293 H, Calcium 9.6, Total Bilirubin 1.1, AST 54 H, ALT 38, Alkaline Phosphatase 58, Total Protein 7.7, Albumin 4.4, Globulin 3.3 H, Albumin/Globulin Ratio 1.3 10/30/23 21:30 10/30/23 21:47 Orders (Tests/Meds): ED MEDICATIONS Discontinued Medications Generic Name Dose Route Start Last Admin Trade Name Freq PRN Reason Stop Dose Admin Albuterol/Ipratropium 9 ml 10/30/23 21:21 10/30/23 22:10 Ipratropium/Albuterol 3 Ml Neb IH 10/30/23 21:22 9 ml ONCE ONE Administration Amoxicillin/Clavulanate Potassium 1 each 10/30/23 22:11 10/30/23 22:20 Amoxicillin/Clavulanate Potassium 875/125mg Tablet PO 10/30/23 22:12 1 each ONCE ONE Administration Azithromycin 500 mg 10/30/23 22:11 10/30/23 22:20 Azithromycin 250mg Tablet PO 10/30/23 22:12 500 mg ONCE ONE Administration Magnesium Sulfate 2 gm in 50 mls @ 50 mls/hr 10/30/23 21:21 10/30/23 21:33 Magnesium Sulfate 2gm/50ml Premix IV 10/30/23 22:20 50 mls/hr ONCE ONE Administration Methylprednisolone Sodium Succinate 125 mg 10/30/23 21:21 10/30/23 21:33 Methylprednisolone Sod Succ 125mg Vial IV 10/30/23 21:22 125 mg ONCE ONE Administration ORDERS Category Date Time Status CXR 2 view (NOT portable) [XR chest 2V] Stat Exams 10/30/23 21:21 Completed CBC w/Auto Diff [Complete Blood Count Auto Diff] Stat Lab 10/30/23 21:30 Completed CMP [Comprehensive Metabolic Panel] Stat Lab 10/30/23 21:47 Completed NT Pro Brain Natriuretic Pep. Stat Lab 10/30/23 21:30 Completed VBG [Venous Blood Gas] Stat RT 10/30/23 21:22 Completed Medical Decision Narrative: 58-year-old female with history of hypertension, hyperlipidemia, diabetes, hypothyroidism presenting with shortness of breath and wheezing. Patient states she has had a nonproductive cough since about 5 days prior to this visit. She has been taking Mucinex, Benadryl, Zyrtec [id number]-[id number], no relief. No fevers or chills, nausea or vomiting, chest pain. History was obtained via conversation with patient and . On arrival, patient hemodynamically stable, alert, oriented x4, appropriate, GCS 15, moving all extremities spontaneously, pupils equal and reactive to light. Full physical exam performed and significant for well-appearing woman who is audibly wheezing from across the room. No prolonged expiratory phase, nontachypneic, saturating appropriately on room air. Mildly hypertensive, breath sounds are symmetrically wheezy. No lower extremity edema, pulses are equal and symmetric. Differential includes bronchitis, pneumonia, reactive airway disease, restrictive airway disease, pneumothorax, PE, among others. Patient was given Solu-Medrol, Decadron for symptomatic management and correction of underlying abnormalities. Workup independently interpreted and significant for no leukocytosis, VBG with respiratory alkalosis, lactate 2.5 likely from work of breathing. Chemistry nonactionable. Chest x-ray with loss of left heart border concerning for pneumonia. See radiology read for full review of final results. On reevaluation, patient feeling much better. Given patient presentation, workup, history, this most likely represents left lingular lobe pneumonia. Because patient at baseline without signs or symptoms of clinical decompensation, deemed appropriate for discharge. Results were relayed to patient who voiced understanding and were agreeable to outpatient management and follow up. I discussed my clinical impression with patient and answered all questions. At this time, the evidence for any other entities in the differential is insufficient to warrant any further testing or ED observation. This was explained as well. Advisory was given that persistent or worsening symptoms require further evaluation. I confirmed the understanding of this discussion. Critical Care Critical Care Time Critical Care Time: No
[2023-10-30] MEDS: MAGNESIUM SULFATE IN WATER 2 GM/50 ML PIGGYBACK IV (21:33)
[2023-10-30] MEDS: METHYLPREDNISOLONE SOD SUCC 125MG VIAL 125 MG IV (21:33)
[2023-10-30 21:37] LABS: Basophils # 0.1 K/mm3 (0-0.2); Basophils % 1.3 % (0.1-2.0); Eosinophils # 0.2 K/mm3 (0.0-0.4); Hematocrit 45.2 % (37.0-47.0); Hemoglobin 14.6 g/dL (12.2-16.2); Lymphocytes # 1.4 K/mm3 (0.7-4.5); Lymphocytes % 18.8 % (10-50); Mean Corpuscular HGB Conc 32.2 g/dL (31.8-35.4); Mean Corpuscular Hemoglobin 31.2 pg (27.0-31.2); Mean Corpuscular Volume 96.8 fl (81-99); Mean Platelet Volume 7.9 fl (7.4-10.4); Monocytes # 0.3 K/mm3 (0.1-1.0); Monocytes % 4.5 % (1.7-9.3); Neutrophils # 5.3 K/mm3 (1.8-7.8); Neutrophils % 72.4 % (37.0-80.0); Platelet Count 267 K/mm3 (142-424); Red Blood Count 4.67 M/mm3 (4.20-5.40); Red Cell Distribution Width 13.7 % (11.5-17.5); White Blood Count 7.3 K/mm3 (4.8-10.8)
[2023-10-30 21:50] LABS: Lactate Venous 2.5 mmol/L (0.4-2.0); VBG Base Excess -1.8 mmol/L (-2.4-2.3); VBG HCO3 22.3 mmol/L (23-30); VBG Oxygen Saturation 91.7 % (50-70); VBG PCO2 33.3 mmol/L (35-51); VBG PH 7.44 mmol/L (7.31-7.41); VBG PO2 57.9 mmol/L (28-40); VBG Total CO2 23.3 mmol/L (23-27)
[2023-10-30 21:58] LABS: NT Pro Brain Natriuretic Pep. 75.1 pg/mL (0-125)
[2023-10-30 21:58] LABS: Chloride 98 mmol/L (98-107); Sodium 135 mmol/L (136-145)
[2023-10-30 21:59] LABS: Potassium 4.3 mmoL/L (3.5-5.1)
[2023-10-30 22:01] LABS: Alanine Aminotransferase 38 U/L (12-78); Albumin Level 4.4 g/dl (3.5-5.0); Albumin/Globulin Ratio 1.3 (1.1-1.8); Alkaline Phosphatase 58 U/L (38-126); Anion Gap 11.3 mEq/L (5-15); Aspartate Amino Transferase 54 U/L (14-36); Bilirubin,Total 1.1 mg/dl (0.2-1.3); Blood Urea Nitrogen 14 mg/dl (7-17); Carbon Dioxide 30 mmol/L (22.0-30.0); Creatinine Clearance Estimated 155 mL/min (50-200); Estimated Glomerular Filt Rate 86 ml/min (>60); GFR (African American) 104 ML/MIN (>60); Globulin 3.3 g/dL (1.3-3.2); Total Protein,Serum 7.7 g/dl (6.3-8.2)
[2023-10-30 22:02] LABS: Calcium 9.6 mg/dl (8.4-10.2); Glucose 293 mg/dl (74-100)
[2023-10-30] MEDS: IPRATROPIUM/ALBUTEROL 3 ML NEB 9 ML IH (22:10)
--- NOTE | 2023-10-30 22:16 | PC.NURSE ---
Ok to give Amoxicillin per Dr Capone
[2023-10-30] MEDS: AZITHROMYCIN 250MG TABLET 500 MG PO (22:20)
[2023-10-30] MEDS: AMOXICILLIN/CLAVULANATE POTASSIUM 875/125MG TABLET 1 EACH PO (22:20)
== END 2023-10-30 23:02 | disposition home or self-care (01) ==
PROVIDERS: Emergency Provider Emergency Medicine; PCP Nurse Practitioner
DX: J18.9 Pneumonia, unspecified organism (principal); R06.02 Shortness of breath; R05.9 Cough, unspecified; I10 Essential (primary) hypertension; E78.5 Hyperlipidemia, unspecified; E11.9 Type 2 diabetes mellitus without complications; E03.9 Hypothyroidism, unspecified
CPT/HCPCS: 71046; 80053; 82803; 83880; 85025; 96365; 96375; 99284; J3475

== ENCOUNTER 2023-11-27 19:55 | Observation (INO) | payer MEDICARE, SELFPAY ==
[2023-11-27] VITALS (8 sets, daily range): BP systolic 120–139; BP diastolic 65–89; PULSE 78–90; RESP 9–21; TEMP 36.9; O2SAT 92–96; BMI 38.7
--- NOTE | 2023-11-27 20:13 | XR_ITS ---
PROCEDURE INFORMATION: Exam: XR Chest Exam date and time: 11/27/2023 8:23 PM Age: 58 years old Clinical indication: Other: Weakness; Additional info: Weakness, recent pneumonia TECHNIQUE: Imaging protocol: Radiologic exam of the chest. Views: 1 view. COMPARISON: CR XR CHEST 2V 10/30/2023 9:30 PM FINDINGS: Lungs: Unremarkable. No consolidation. Pleural spaces: Unremarkable. No pleural effusion. No pneumothorax. Heart/Mediastinum: Unremarkable. No cardiomegaly. Bones/joints: Unremarkable. IMPRESSION: No acute findings.
--- NOTE | 2023-11-27 20:13 | ECG_ITS ---
APPROVED REPORT Exam: Resting ECG HR:87 bpm ECG Measurements Heart Rate 87 AXES NH 176 P 54 QRSd 89 QRS 73 QT 402 T 46 QTc 446 Conclusion SINUS RHYTHM NONSPECIFIC T-WAVE ABNORMALITY BORDERLINE ECG UNCONFIRMED REPORT Electronically signed by : KYM RAMIREZ, 11/28/2023 03:27:24
[2023-11-27 20:14] LABS: Basophils # 0.1 K/mm3 (0-0.2); Basophils % 1.3 % (0.1-2.0); Eosinophils # 0.2 K/mm3 (0.0-0.4); Eosinophils % 2.8 % (0.1-12.0); Hematocrit 43.2 % (37.0-47.0); Hemoglobin 16.4 g/dL (12.2-16.2); Lymphocytes # 1.6 K/mm3 (0.7-4.5); Lymphocytes % 23.5 % (10-50); Mean Corpuscular Hemoglobin 35.5 pg (27.0-31.2); Mean Corpuscular Volume 93.4 fl (81-99); Mean Platelet Volume 7.6 fl (7.4-10.4); Monocytes # 0.2 K/mm3 (0.1-1.0); Monocytes % 3.7 % (1.7-9.3); Neutrophils # 4.6 K/mm3 (1.8-7.8); Neutrophils % 68.9 % (37.0-80.0); Platelet Count 369 K/mm3 (142-424); Red Blood Count 4.62 M/mm3 (4.20-5.40); Red Cell Distribution Width 14.4 % (11.5-17.5); White Blood Count 6.6 K/mm3 (4.8-10.8)
[2023-11-27 20:17] LABS: Chloride 95 mmol/L (98-107); Potassium 3.8 mmoL/L (3.5-5.1); Sodium 138 mmol/L (136-145)
[2023-11-27 20:20] LABS: Alanine Aminotransferase 38 U/L (12-78); Albumin Level 4.8 g/dl (3.5-5.0); Albumin/Globulin Ratio 1.2 (1.1-1.8); Alkaline Phosphatase 88 U/L (38-126); Anion Gap 15.8 mEq/L (5-15); Aspartate Amino Transferase 43 U/L (14-36); Bilirubin,Total 0.7 mg/dl (0.2-1.3); Blood Urea Nitrogen 9 mg/dl (7-17); Carbon Dioxide 31 mmol/L (22.0-30.0); Creatinine Clearance Estimated 116 mL/min (50-200); Estimated Glomerular Filt Rate 64 ml/min (>60); GFR (African American) 78 ML/MIN (>60); Globulin 3.9 g/dL (1.3-3.2); Total Protein,Serum 8.7 g/dl (6.3-8.2)
[2023-11-27 20:21] LABS: Calcium 10.3 mg/dl (8.4-10.2); Glucose 267 mg/dl (74-100)
--- NOTE | 2023-11-27 20:21 | HMH.EDGENADL ---
Discharge Plan Disposition Patient Disposition: Admitted Prescriptions Prescriptions: No Action cholecalciferol (vitamin D3) 50,000 unit capsule 50,000 mg PO DAILY 28 Days Qty: 8 zolpidem 10 mg tablet 10 mg PO DAILY 30 Days Qty: 30 duloxetine 60 mg capsule,delayed release(DR/EC) 60 mg PO DAILY 90 Days Qty: 90 amlodipine 10 mg tablet 10 mg PO DAILY 90 Days Qty: 90 levothyroxine 75 mcg tablet 75 mcg PO DAILY Qty: 90 atorvastatin 40 mg tablet 40 mg PO DAILY Qty: 90 ibuprofen 800 mg tablet 800 mg PO BID Qty: 60 3RF lisinopril-hydrochlorothiazide 20-25 mg tablet 1 tab PO Qty: 90 gabapentin 100 mg capsule 100 mg PO TID Qty: 30 0RF Rx Instructions: Start with one tablet daily then increase over next week diclofenac sodium [Voltaren] 1 % gel 4 g topical QID Qty: 30 2RF Rx Instructions: apply to single knee, ankle, foot; gently massage into area; for foot includes sole/toes/top of foot prednisone 20 mg tablet 40 mg PO DAILY 5 Days Qty: 10 0RF amoxicillin-pot clavulanate 875-125 mg tablet 1 tab PO BID 7 Days Qty: 14 0RF azithromycin 500 mg tablet 500 mg PO DAILY 3 Days Qty: 3 0RF Rx Instructions: start on day 2 of therapy Clinical Impressions Clinical Impression: Pyelonephritis, Vomiting, Acute hyperglycemia, Flank pain, Gastroenteritis Discharge ED Provider: David Gasca General Adult HPI <David Gasca MD - Last Filed: 11/27/23 23:48> General Chief complaint: Weakness Stated complaint: weakness Time Seen by Provider: 11/27/23 20:00 Mode of Arrival: Family Vehicle Source of Information: Patient Limitations: No Limitations Description of Symptoms (Recalled from ER Triage Doc. by RN): 58 yo female presents with cc of overall weakness that came on after eating her supper at an outside establishment. States she consumed her meal, had conversation with her friends, no anomalies. denies visual or focal deficits. History includes unmonitored diabetes, HYPOthyroidism, cholesterol and recent pneumonia History of Present Illness HPI narrative: Patient is a 58-year-old female with past medical history of hypertension, hypothyroidism who presents emergency department for evaluation of weakness. Patient was eating a cut of beef at dinner when they were sat down for prolonged downtime. She angela from a seated position, felt clammy, nauseous, globally weak and had to be laid down to the ground on the way to the vehicle. They presented here for continued evaluation. No trauma. No other acute complaints at this time. Patient did have an episode of pneumonia 3 weeks ago which resolved with oral antibiotics. Related Data Home Medications Medication Instructions Recorded Confirmed amlodipine 10 mg tablet 10 mg PO DAILY bp 90 days #90 tabs 04/28/18 11/11/23 cholecalciferol (vitamin D3) 1,250 50,000 mg PO DAILY supp;e 28 days 04/28/18 11/11/23 mcg (50,000 unit) capsule #8 caps duloxetine 60 mg capsule,delayed 60 mg PO DAILY mood 90 days #90 04/28/18 11/11/23 release caps zolpidem 10 mg tablet 10 mg PO DAILY sleep 30 days #30 04/28/18 11/11/23 tabs atorvastatin 40 mg tablet 40 mg PO DAILY Cholesterol #90 tabs 11/22/18 11/11/23 levothyroxine 75 mcg tablet 75 mcg PO DAILY thyroid #90 tabs 11/22/18 11/11/23 lisinopril 20 1 tab PO #90 tabs 06/20/19 11/11/23 mg-hydrochlorothiazide 25 mg tablet Previous Rx's Medication Instructions Recorded diclofenac sodium 1 % topical gel 4 g topical QID pain #30 grams 05/26/18 (Voltaren) ibuprofen 800 mg tablet 800 mg PO BID pain, mild #60 tabs 11/22/18 gabapentin 100 mg capsule 100 mg PO TID neuropathy #30 caps 06/20/19 amoxicillin 875 mg-potassium 1 tab PO BID 7 days #14 tabs 10/30/23 clavulanate 125 mg tablet azithromycin 500 mg tablet 500 mg PO DAILY 3 days #3 tabs 10/30/23 prednisone 20 mg tablet 40 mg (2 x 20 mg) PO DAILY 5 days 10/30/23 #10 tabs Allergies Allergy/AdvReac Type Severity Reaction Status Date / Time Penicillins Allergy Verified 11/11/23 12:08 [facility] <David Gasca MD - Last Filed: 11/27/23 23:48> [facility] Disclaimer: The information contained in this section may have been updated after the patient was seen, as this information can be updated by other users. Social History Smoking Status: Unknown if ever smoked alcohol intake: never substance use type: denies use current occupational status: employed and disabled Travel in the last 8 weeks: None household members: significant other housing: house current occupation: [employer] caffeine: No <David Gasca MD - Last Filed: 11/27/23 23:48> ROS Obtained: Yes Systems reviewed as appropriate & no additional complaints except as documented Physical Exam <David Gasca MD - Last Filed: 11/27/23 23:48> General General appearance: alert and in no apparent distress Head Head exam: atraumatic and normocephalic Eye Eye exam: Present PERRL and EOMI ENT ENT exam: Present mucous membranes moist Neck Neck exam: Present normal inspection Chest Chest inspection: Present normal inspection and symmetric chest wall rise Respiratory Respiratory exam: Present normal lung sounds bilaterally; Absent respiratory distress Cardiovascular Cardiovascular exam: Present regular rate and normal rhythm Abdominal Exam Abdominal exam: Present soft; Absent tenderness Extremities Exam Extremities exam: Present normal inspection Neurological Exam Neurological exam: Present alert and CN II-XII intact; Absent motor sensory deficit Psychiatric Psychiatric exam: Present normal affect Skin Skin exam: Present warm and dry Medical Decision Making <David Gasca MD - Last Filed: 11/27/23 23:48> Medical Records Medical records reviewed: Yes I reviewed the patient's medical records. J Luis Inquiry Pt receiving controlled substance: No Vital Signs: 11/27/23 20:07 11/27/23 20:30 11/27/23 21:01 Temperature 98.5 F Temperature Source Oral Pulse Rate 90 80 Pulse Rate [Right Brachial] 81 Respiratory Rate 19 13 Blood Pressure 133/86 125/76 Blood Pressure [Right Arm] 139/89 Blood Pressure Mean Blood Pressure Mean [Right Arm] 105 Blood Pressure Source [Right Arm] Automatic Cuff Blood Pressure Position [Right Arm] Sitting 02 Sat by Pulse Oximetry 95 92 L 94 L Oxygen Delivery Method Room Air 11/27/23 21:30 11/27/23 22:01 11/27/23 22:40 Temperature Temperature Source Pulse Rate 78 79 90 Pulse Rate [Right Brachial] Respiratory Rate 9 L 11 L 13 Blood Pressure 120/68 120/71 134/84 Blood Pressure [Right Arm] Blood Pressure Mean Blood Pressure Mean [Right Arm] Blood Pressure Source [Right Arm] Blood Pressure Position [Right Arm] 02 Sat by Pulse Oximetry 95 94 L 95 Oxygen Delivery Method 11/27/23 23:01 11/27/23 23:30 11/28/23 00:01 Temperature Temperature Source Pulse Rate 82 80 78 Pulse Rate [Right Brachial] Respiratory Rate 21 15 14 Blood Pressure 126/65 132/73 128/80 Blood Pressure [Right Arm] Blood Pressure Mean 85 92 94 Blood Pressure Mean [Right Arm] Blood Pressure Source [Right Arm] Blood Pressure Position [Right Arm] 02 Sat by Pulse Oximetry 94 L 96 95 Oxygen Delivery Method Room Air Room Air Room Air Lab Data Lab Results 11/27/23 20:00: WBC 6.6, RBC 4.62, Hgb 16.4 H, Hct 43.2, MCV 93.4, MCH 35.5 H, MCHC 38.0 H, RDW 14.4, Plt Count 369, MPV 7.6, Neut % (Auto) 68.9, Lymph % (Auto) 23.5, [place] % (Auto) 3.7, Eos % (Auto) 2.8, Baso % (Auto) 1.3, Neut # (Auto) 4.6, Lymph # (Auto) 1.6, [place] # (Auto) 0.2, Eos # (Auto) 0.2, Baso # (Auto) 0.1, Sodium 138, Potassium 3.8, Chloride 95 L, Carbon Dioxide 31 H, Anion Gap 15.8 H, BUN 9, Creatinine 0.90, Estimated Creat Clear 116, Estimated GFR 64, Est GFR ( Amer) 78, Glucose 267 H, Calcium 10.3 H, Total Bilirubin 0.7, AST 43 H, ALT 38, Alkaline Phosphatase 88, Troponin I < 0.01, Total Protein 8.7 H, Albumin 4.8, Globulin 3.9 H, Albumin/Globulin Ratio 1.2, Lipase 91, TSH 9.23 H, Thyroxine (T4) 10.3 11/27/23 22:46: VBG pH 7.35, VBG pCO2 53.1 H, VBG pO2 30.1, VBG HCO3 28.3, VBG Total CO2 30.0 H, VBG O2 Saturation 50.6, VBG Base Excess 2.6 H, VBG Lactic Acid 3.2 H 11/27/23 23:16: Urine Color Yellow, Urine Appearance Sl cloudy, Urine pH 6.0, Ur Specific [place] >= 1.030, Urine Protein 1+, Urine Glucose (UA) Negative, Urine Ketones Trace, Urine Blood Negative, Urine Nitrate Negative, Urine Bilirubin 1+ A, Urine Urobilinogen 1.0, Ur Leukocyte Esterase 2+ A, Urine RBC Occasional, Urine WBC 10-20, Ur Squamous Epith Cells 5-10, Urine Bacteria 2+, Urine Yeast Occasional 11/27/23 20:00 11/27/23 20:00 Orders (Tests/Meds): ED MEDICATIONS Generic Name Dose Route Start Last Admin Trade Name Freq PRN Reason Stop Dose Admin Ceftriaxone Sodium 1 gm/ 50 mls @ 100 mls/hr 11/28/23 00:53 11/28/23 01:09 Sodium Chloride IV 11/28/23 01:22 100 mls/hr ONCE ONE Administration Sodium Chloride 1,000 mls @ 999 mls/hr 11/28/23 01:00 11/28/23 01:00 Sod Chlor 0.9% 1000ml Bag IV 11/28/23 02:00 999 mls/hr .Q1H1M SKYE Administration Sodium Chloride 10 ml 11/28/23 00:36 11/28/23 00:36 Sodium Chloride 0.9% 10ml Syr (Rad Only) IV 12/28/23 00:35 10 ml NEEDED PRN Administration Maintain IV Site Discontinued Medications Generic Name Dose Route Start Last Admin Trade Name Freq PRN Reason Stop Dose Admin Lactated Ringer's 1,000 mls @ 999 mls/hr 11/27/23 20:14 11/27/23 20:27 Lactated Ringer's 1000 Ml Bag IV 11/27/23 21:14 999 mls/hr .Q1H1M ONE Administration Lactated Ringer's 1,000 mls @ 999 mls/hr 11/28/23 00:45 11/28/23 01:01 Lactated Ringer's 1000 Ml Bag IV 11/28/23 01:45 Not Given .Q1H1M SKYE Iopamidol 75 ml 11/28/23 00:36 11/28/23 00:36 Iopamidol-370 (76%);100ml Bottle IV 11/28/23 00:37 75 ml ONCE ONE Administration Metoclopramide HCl 10 mg 11/28/23 00:40 11/28/23 00:58 Metoclopramide Hcl 10mg/2ml Vial IVP 11/28/23 00:41 10 mg ONCE ONE Administration Ondansetron HCl 4 mg 11/27/23 20:21 11/27/23 20:29 Ondansetron 4mg/2ml Vial IV 11/27/23 20:22 4 mg ONCE ONE Administration Ondansetron HCl 4 mg 11/27/23 23:57 11/27/23 23:59 Ondansetron 4mg/2ml Vial IV 11/27/23 23:58 4 mg ONCE ONE Administration Ondansetron HCl 4 mg 11/28/23 00:01 11/28/23 00:08 Ondansetron 4mg/2ml Vial IV 11/28/23 00:02 Not Given ONCE ONE Promethazine HCl 25 mg 11/27/23 22:27 11/27/23 22:31 Promethazine Hcl 25mg/Ml 1ml Vial IV 11/27/23 22:28 25 mg ONCE ONE Administration Sodium Chloride 25 ml 11/27/23 22:27 11/27/23 22:31 Sodium Chloride 0.9% 25ml Bag IV 11/27/23 22:28 25 ml ONCE ONE Administration ORDERS Category Date Time Status CT abdomen pelvis w con Stat Cat Scan 11/27/23 23:48 Completed XR chest portable Stat Exams 11/27/23 20:13 Completed CBC w/Auto Diff [Complete Blood Count Auto Diff] Stat Lab 11/27/23 20:00 Completed CMP [Comprehensive Metabolic Panel] Stat Lab 11/27/23 20:00 Completed Lipase Stat Lab 11/27/23 20:00 Completed T4 (Thyroxine) Stat Lab 11/27/23 20:00 Completed Thyroid Stimulating Hormone Stat Lab 11/27/23 20:00 Completed Troponin I Stat Lab 11/27/23 20:00 Completed UA [Urinalysis and Microscopic] Stat Lab 11/27/23 23:16 Completed Blood Culture Stat Micro 11/28/23 01:00 Received Urine Culture Stat Micro 11/27/23 23:16 Received VBG [Venous Blood Gas] Stat RT 11/27/23 22:46 Completed ECG Request Stat Y 11/27/23 20:13 Ordered ECG Data Tracing #1: Independently interpreted by me, rate is 87, rhythm is regular, axis is normal, no ST elevation in anatomical contiguous leads, QTc 446. Medical Decision Narrative: In summary patient is a 58-year-old female past medical history described above who presents emergency department for evaluation of global weakness and presyncope. Patient is hemodynamically stable nontoxic-appearing arrival, afebrile. Upon my initial interview patient had an episode of nausea and emesis. Patient has a benign abdominal exam. I suspect the patient had vasovagal presyncope with associated nausea and vomiting. This may be mediated by toxin mediated gastritis given that she just ate. Workup will be conducted with hematologic labs, glucose, urinalysis. Initial inventions include crystalloid bolus, Zofran. Initial workup reviewed by me, hematologic labs are remarkable for hyperglycemia at 267 for which VBG will be obtained. Upon repeat evaluation patient had persistent vomiting which Phenergan will be administered. Workup reviewed by me, patient does not have evidence of DKA. Urinalysis is consistent with infection. Upon repeat evaluation patient was tolerating p.o. and was feeling much better. Unfortunately this was followed by an episode of vomiting and patient was unable to further tolerate p.o. She has a history of kidney stones and states that she has had right flank pain. Given this especially in the setting of urinary tract infection patient undergo CT imaging. CT imaging and repeat evaluation pending at time of transfer of care to the oncoming physician, Dr. Frankel. <Ronald Frankel MD - Last Filed: 11/28/23 01:14> Vital Signs: 11/27/23 20:07 11/27/23 20:30 11/27/23 21:01 Temperature 98.5 F Temperature Source Oral Pulse Rate 90 80 Pulse Rate [Right Brachial] 81 Respiratory Rate 19 13 Blood Pressure 133/86 125/76 Blood Pressure [Right Arm] 139/89 Blood Pressure Mean Blood Pressure Mean [Right Arm] 105 Blood Pressure Source [Right Arm] Automatic Cuff Blood Pressure Position [Right Arm] Sitting 02 Sat by Pulse Oximetry 95 92 L 94 L Oxygen Delivery Method Room Air 11/27/23 21:30 11/27/23 22:01 11/27/23 22:40 Temperature Temperature Source Pulse Rate 78 79 90 Pulse Rate [Right Brachial] Respiratory Rate 9 L 11 L 13 Blood Pressure 120/68 120/71 134/84 Blood Pressure [Right Arm] Blood Pressure Mean Blood Pressure Mean [Right Arm] Blood Pressure Source [Right Arm] Blood Pressure Position [Right Arm] 02 Sat by Pulse Oximetry 95 94 L 95 Oxygen Delivery Method 11/27/23 23:01 11/27/23 23:30 11/28/23 00:01 Temperature Temperature Source Pulse Rate 82 80 78 Pulse Rate [Right Brachial] Respiratory Rate 21 15 14 Blood Pressure 126/65 132/73 128/80 Blood Pressure [Right Arm] Blood Pressure Mean 85 92 94 Blood Pressure Mean [Right Arm] Blood Pressure Source [Right Arm] Blood Pressure Position [Right Arm] 02 Sat by Pulse Oximetry 94 L 96 95 Oxygen Delivery Method Room Air Room Air Room Air Lab Data Lab Results 11/27/23 20:00: WBC 6.6, RBC 4.62, Hgb 16.4 H, Hct 43.2, MCV 93.4, MCH 35.5 H, MCHC 38.0 H, RDW 14.4, Plt Count 369, MPV 7.6, Neut % (Auto) 68.9, Lymph % (Auto) 23.5, [place] % (Auto) 3.7, Eos % (Auto) 2.8, Baso % (Auto) 1.3, Neut # (Auto) 4.6, Lymph # (Auto) 1.6, [place] # (Auto) 0.2, Eos # (Auto) 0.2, Baso # (Auto) 0.1, Sodium 138, Potassium 3.8, Chloride 95 L, Carbon Dioxide 31 H, Anion Gap 15.8 H, BUN 9, Creatinine 0.90, Estimated Creat Clear 116, Estimated GFR 64, Est GFR ( Amer) 78, Glucose 267 H, Calcium 10.3 H, Total Bilirubin 0.7, AST 43 H, ALT 38, Alkaline Phosphatase 88, Troponin I < 0.01, Total Protein 8.7 H, Albumin 4.8, Globulin 3.9 H, Albumin/Globulin Ratio 1.2, Lipase 91, TSH 9.23 H, Thyroxine (T4) 10.3 11/27/23 22:46: VBG pH 7.35, VBG pCO2 53.1 H, VBG pO2 30.1, VBG HCO3 28.3, VBG Total CO2 30.0 H, VBG O2 Saturation 50.6, VBG Base Excess 2.6 H, VBG Lactic Acid 3.2 H 11/27/23 23:16: Urine Color Yellow, Urine Appearance Sl cloudy, Urine pH 6.0, Ur Specific [place] >= 1.030, Urine Protein 1+, Urine Glucose (UA) Negative, Urine Ketones Trace, Urine Blood Negative, Urine Nitrate Negative, Urine Bilirubin 1+ A, Urine Urobilinogen 1.0, Ur Leukocyte Esterase 2+ A, Urine RBC Occasional, Urine WBC 10-20, Ur Squamous Epith Cells 5-10, Urine Bacteria 2+, Urine Yeast Occasional Orders (Tests/Meds): ED MEDICATIONS Generic Name Dose Route Start Last Admin Trade Name Freescobar PRN Reason Stop Dose Admin Ceftriaxone Sodium 1 gm/ 50 mls @ 100 mls/hr 11/28/23 00:53 11/28/23 01:09 Sodium Chloride IV 11/28/23 01:22 100 mls/hr ONCE ONE Administration Sodium Chloride 1,000 mls @ 999 mls/hr 11/28/23 01:00 11/28/23 01:00 Sod Chlor 0.9% 1000ml Bag IV 11/28/23 02:00 999 mls/hr .Q1H1M SKYE Administration Sodium Chloride 10 ml 11/28/23 00:36 11/28/23 00:36 Sodium Chloride 0.9% 10ml Syr (Rad Only) IV 12/28/23 00:35 10 ml NEEDED PRN Administration Maintain IV Site Discontinued Medications Generic Name Dose Route Start Last Admin Trade Name Freq PRN Reason Stop Dose Admin Lactated Ringer's 1,000 mls @ 999 mls/hr 11/27/23 20:14 11/27/23 20:27 Lactated Ringer's 1000 Ml Bag IV 11/27/23 21:14 999 mls/hr .Q1H1M ONE Administration Lactated Ringer's 1,000 mls @ 999 mls/hr 11/28/23 00:45 11/28/23 01:01 Lactated Ringer's 1000 Ml Bag IV 11/28/23 01:45 Not Given .Q1H1M SKYE Iopamidol 75 ml 11/28/23 00:36 11/28/23 00:36 Iopamidol-370 (76%);100ml Bottle IV 11/28/23 00:37 75 ml ONCE ONE Administration Metoclopramide HCl 10 mg 11/28/23 00:40 11/28/23 00:58 Metoclopramide Hcl 10mg/2ml Vial IVP 11/28/23 00:41 10 mg ONCE ONE Administration Ondansetron HCl 4 mg 11/27/23 20:21 11/27/23 20:29 Ondansetron 4mg/2ml Vial IV 11/27/23 20:22 4 mg ONCE ONE Administration Ondansetron HCl 4 mg 11/27/23 23:57 11/27/23 23:59 Ondansetron 4mg/2ml Vial IV 11/27/23 23:58 4 mg ONCE ONE Administration Ondansetron HCl 4 mg 11/28/23 00:01 11/28/23 00:08 Ondansetron 4mg/2ml Vial IV 11/28/23 00:02 Not Given ONCE ONE Promethazine HCl 25 mg 11/27/23 22:27 11/27/23 22:31 Promethazine Hcl 25mg/Ml 1ml Vial IV 11/27/23 22:28 25 mg ONCE ONE Administration Sodium Chloride 25 ml 11/27/23 22:27 11/27/23 22:31 Sodium Chloride 0.9% 25ml Bag IV 11/27/23 22:28 25 ml ONCE ONE Administration ORDERS Category Date Time Status CT abdomen pelvis w con Stat Cat Scan 11/27/23 23:48 Completed XR chest portable Stat Exams 11/27/23 20:13 Completed CBC w/Auto Diff [Complete Blood Count Auto Diff] Stat Lab 11/27/23 20:00 Completed CMP [Comprehensive Metabolic Panel] Stat Lab 11/27/23 20:00 Completed Lipase Stat Lab 11/27/23 20:00 Completed T4 (Thyroxine) Stat Lab 11/27/23 20:00 Completed Thyroid Stimulating Hormone Stat Lab 11/27/23 20:00 Completed Troponin I Stat Lab 11/27/23 20:00 Completed UA [Urinalysis and Microscopic] Stat Lab 11/27/23 23:16 Completed Blood Culture Stat Micro 11/28/23 01:00 Received Urine Culture Stat Micro 11/27/23 23:16 Received VBG [Venous Blood Gas] Stat RT 11/27/23 22:46 Completed ECG Request Stat Y 11/27/23 20:13 Ordered Medical Decision Narrative: In summary patient is a 58-year-old female past medical history described above who presents emergency department for evaluation of global weakness and presyncope. Patient is hemodynamically stable nontoxic-appearing arrival, afebrile. Upon my initial interview patient had an episode of nausea and emesis. Patient has a benign abdominal exam. I suspect the patient had vasovagal presyncope with associated nausea and vomiting. This may be mediated by toxin mediated gastritis given that she just ate. Workup will be conducted with hematologic labs, glucose, urinalysis. Initial inventions include crystalloid bolus, Zofran. Initial workup reviewed by me, hematologic labs are remarkable for hyperglycemia at 267 for which VBG will be obtained. Upon repeat evaluation patient had persistent vomiting which Phenergan will be administered. Workup reviewed by me, patient does not have evidence of DKA. Urinalysis is consistent with infection. Upon repeat evaluation patient was tolerating p.o. and was feeling much better. Unfortunately this was followed by an episode of vomiting and patient was unable to further tolerate p.o. She has a history of kidney stones and states that she has had right flank pain. Given this especially in the setting of urinary tract infection patient undergo CT imaging. CT imaging and repeat evaluation pending at time of transfer of care to the oncoming physician, Dr. Frankel. Jostin ZAFAR: I assumed care of the patient at the time of handoff from the prior provider. On reassessment patient remains symptomatic, nauseous, vomiting, not tolerating p.o. intake, feels generally unwell. Abdominal exam remains benign, no focal right upper quadrant tenderness. She is complaining of mild right flank and low back pain. She reports that she has had some abnormal urine over the last couple of days and thinks she could have passed a kidney stone a couple of days ago. She briefly dropped her sats and is currently on 2 L nasal cannula. On my independent interpretation, laboratory workup is concerning for UTI/pyelonephritis given 10-20 WBCs and 2+ bacteria in the setting of flank pain. CT imaging independently interpreted by me and shows no evidence of cholecystitis or ureteral obstruction. Does show fluid-filled small bowel without focal transition point which is most consistent with gastroenteritis/food poisoning clinical history of acute nausea vomiting shortly after eating out. Also shows an adrenal nodule. I had an interactive discussion with patient regarding her symptoms. He was given additional IV Zofran and Reglan for nausea and vomiting. She was given 1 L fluids. She was given ceftriaxone IV for empiric treatment of pyelonephritis. Interactive discussion was had with hospitalist on-call who accepted the patient for further evaluation and management of pyelonephritis and intractable nausea vomiting. Critical Care <David Gasca MD - Last Filed: 11/27/23 23:48> Critical Care Time Critical Care Time: No
[2023-11-27] MEDS: LACTATED RINGERS 1000ML 1,000 ML 999 ML IV (20:27)
[2023-11-27 20:29] LABS: Lipase 91 U/L (23-300)
[2023-11-27] MEDS: ONDANSETRON 4MG/2ML VIAL 4 MG IV ×2 (20:29→23:59)
[2023-11-27 20:44] LABS: Troponin I < 0.01 ng/ml (0.00-0.034)
[2023-11-27 20:47] LABS: T4 (Thyroxine) 10.3 ug/dl (5.53-11.0)
[2023-11-27 21:01] LABS: Thyroid Stimulating Hormone 9.23 uIU/mL (0.465-4.68)
--- NOTE | 2023-11-27 22:30 | PC.NURSE ---
Patient actively vomiting at this time. Notified provider, orders received.
[2023-11-27] MEDS: PROMETHAZINE HCL 25MG/ML 1ML VIAL 25 MG IV (22:31)
[2023-11-27] MEDS: SODIUM CHLORIDE 0.9% 25ML BAG 25 ML IV (22:31)
--- NOTE | 2023-11-27 22:47 | PC.NURSE ---
patient cleaned up and put dry clothes and warm blankets on, no other needs at this time
--- NOTE | 2023-11-27 22:49 | PC.NURSE ---
contacted will,rt for vbg
[2023-11-27 22:53] LABS: VBG Base Excess 2.6 mmol/L (-2.4-2.3); VBG HCO3 28.3 mmol/L (23-30); VBG Oxygen Saturation 50.6 % (50-70); VBG PCO2 53.1 mmol/L (35-51); VBG PH 7.35 mmol/L (7.31-7.41); VBG PO2 30.1 mmol/L (28-40)
[2023-11-27 22:54] LABS: Lactate Venous 3.2 mmol/L (0.4-2.0)
[2023-11-27 23:20] LABS: Microscopic, Urine URINE MICROSCOPIC (MICROSCOPIC)
--- NOTE | 2023-11-27 23:20 | PC.NURSE ---
Provided patient with ice water for PO challenge at this time.
[2023-11-27 23:22] LABS: Appearance,Urine SL CLOUDY (Clear); Blood, Urine Negative (Negative); Color,Urine YELLOW (Yellow); Glucose,Urine (UA) Negative (Negative); Ketones,Urine TRACE (Negative); Leukocyte Esterase,Urine 2+ (Negative); Nitrate,Urine Negative (Negative); Protein,Urine 1+ (Negative); Specific Gravity, Urine >= 1.030 (1.005-1.030)
--- NOTE | 2023-11-27 23:22 | PC.NURSE ---
Urine sample collected and sent to the lab
[2023-11-27 23:24] LABS: Bilirubin,Urine 1+ (Negative)
[2023-11-27 23:27] LABS: Bacteria,Urine 2+ /lpf; RBC,Urine Occasional #/hpf (0-3); Yeast,Urine Occasional /lpf
--- NOTE | 2023-11-27 23:40 | PC.NURSE ---
Patient became tachycardic to 170s, this RN went to bedside, upon arrival to bedside patient heart rate 78 and patient reports that she had been dry heaving just before coming into the room. Patient states that she drank approximately 50% of the ice water provided to her and became very nauseated again. Notified Dr. Gasca whom went to bedside at this time.
--- NOTE | 2023-11-27 23:48 | CT_ITS ---
PROCEDURE INFORMATION: Exam: CT Abdomen And Pelvis With Contrast Exam date and time: 11/27/2023 11:53 PM Age: 58 years old Clinical indication: Abdominal pain; Flank; Right; Additional info: R flank pain, dysuria, presyncope TECHNIQUE: Imaging protocol: Computed tomography of the abdomen and pelvis with contrast. Radiation optimization: All CT scans at this facility use at least one of these dose optimization techniques: automated exposure control; mA and/or kV adjustment per patient size (includes targeted exams where dose is matched to clinical indication); or iterative reconstruction. Contrast material: ISOVUE; Contrast volume: 75 ml; Contrast route: IV; COMPARISON: 1. CR XR CHEST PORTABLE 11/27/2023 8:23 PM 2. CR XR CHEST 2V 10/30/2023 9:30 PM 3. CR (CHEST PA, CHEST, CHEST PA) 11/22/2018 9:44 AM FINDINGS: Lungs: There is some periosteophyte fibrosis noted within the lungs. Liver: There is diffuse fatty infiltration throughout the liver. Gallbladder and bile ducts: The gallbladder is moderately distended, consider right upper quadrant ultrasound if any concern for cholecystitis. Pancreas: There is fatty replacement of the pancreas. Spleen: There are multiple calcifications in the spleen most likely reflects small granulomas. Adrenal glands: 1 cm right adrenal nodule (image 41 series 3) Kidneys and ureters: Simple appearing left renal cyst. Stomach and bowel: Mild fluid distention of small-bowel loops. There is large volume stool throughout the colon. Appendix: No evidence of appendicitis. Intraperitoneal space: Unremarkable. Vasculature: The abdominal aorta and its major branches appear normal without evidence of aneurysm or stenosis. There are pelvic phleboliths. Lymph nodes: No lymphadenopathy. Urinary bladder: Unremarkable as visualized. Reproductive: The patient has undergone prior hysterectomy. Bones/joints: The visualized osseous structures of the abdomen and pelvis appear normal for patient age. Soft tissues: Unremarkable. IMPRESSION: 1. The gallbladder is moderately distended, consider right upper quadrant ultrasound if any concern for cholecystitis. 2. Fluid distension of central abdominal small bowel loops without obstruction. Findings may reflect enteritis or ileus. 3. Hepatic steatosis. 4. Indeterminate adrenal nodule(s) as detailed above, statistically most likely to reflect adenoma but technically indeterminate on this study. Non-emergent adrenal CT or MRI is recommended. (Reference: Juliana) COMMENTS: Consistent with the [employer]'s Incidental Findings Committee white paper (J Am Caryn Radiol 2018): Any incidental renal lesion less than 1 cm or classified as too small to characterize, or any incidental cystic renal lesion characterized as simple-appearing, is likely benign. No follow-up imaging is recommended for these lesions per consensus recommendations based on imaging criteria. REFERENCES: Juliana PICKERING et al. Management of Incidental Adrenal Masses: A White Paper of the ACR Incidental Findings Committee. J Am Caryn Radiol. 2017;14(8):4311-9593.
[2023-11-28] VITALS (8 sets, daily range): BP systolic 125–150; BP diastolic 71–84; PULSE 72–107; RESP 14–20; TEMP 36.5–37.1; O2SAT 88–96; BMI 42.3
--- NOTE | 2023-11-28 00:16 | PC.NURSE ---
Patient continues to report nausea and is unsure that she can tolerate CT scan at this time. Notified Dr. Frankel. Provider to bedside to speak with patient at this time.
--- NOTE | 2023-11-28 00:27 | PC.NURSE ---
patient to radiology
[2023-11-28] MEDS: SODIUM CHLORIDE 0.9% 10ML SYR (RAD ONLY) 10 ML IV (00:36)
[2023-11-28] MEDS: IOPAMIDOL-370 (76%);100ML BOTTLE 75 ML IV (00:36)
--- NOTE | 2023-11-28 00:40 | PC.NURSE ---
Spo2 noted to be 86-87% on the monitor with a good pleth. This RN to bedside to reassess patient at this time. Patient is awake, reports that she still feels extreme weakness, became diaphoretic, and remains nauseated. Patient continues to persist at 89% spo2. Placed patient on 2LNC at this time, notified Dr. Frankel, provider to bedside at this time to speak with patient.
[2023-11-28] MEDS: METOCLOPRAMIDE HCL 10MG/2ML VIAL 10 MG IVP (00:58)
[2023-11-28] MEDS: 0.9 % SODIUM CHLORIDE 1000ML 1,000 ML 999 ML IV (01:00)
--- NOTE | 2023-11-28 01:08 | PC.NURSE ---
call placed to house for bed assignment; dx: pyelonephritis, hospitalist. spoke with baldemar
[2023-11-28] MEDS: CEFTRIAXONE 1 GM 1 GM in 0.9 % SODIUM CHLORIDE 50 ML IV (01:09)
--- NOTE | 2023-11-28 01:11 | P.HP_ITS ---
History of Present Illness *Admission Date: 11/28/23 *Reason for visit:: n/v/abd pain *History of present illness: This is a 58-year-old obese female with PMHx of hypertension, hypothyroidism, DM, who presents emergency department for evaluation of an episode of presyncope, associated with nauseas and vomit. Patient was eating at a local restaurant when suddenly started feeling clammy, nauseous, globally weak and had to be laid down to the ground on the way to the vehicle. They presented here for continued evaluation. No trauma. No other acute complaints at this time. Patient did have an episode of pneumonia 3 weeks ago which resolved with oral antibiotics. She also reported been having right flank discomfort with dark colored urination and what she felt recently 'passing a kidney stone' with subsequent release. Admitted for further treatment. [facility] Disclaimer: The information contained in this section may have been updated after the patient was seen, as this information can be updated by other users. Social History Smoking Status: Unknown if ever smoked alcohol intake: never substance use type: denies use current occupational status: employed and disabled Travel in the last 8 weeks: None household members: significant other housing: house current occupation: [employer] caffeine: No Review of Systems Review of Systems Review of systems:: pertinent systems reviewed and negative unless documented below Meds Home Medications and Allergies Home Medications Medication Instructions Recorded Confirmed Type duloxetine 60 mg capsule,delayed 60 mg PO DAILY mood 90 days #90 04/28/18 11/28/23 History release caps zolpidem 10 mg tablet 10 mg PO DAILY sleep 30 days #30 04/28/18 11/28/23 History tabs benzonatate 200 mg capsule 200 mg PO TID 11/28/23 11/28/23 History conjugated estrogens 0.3 mg tablet 0.3 mg PO DAILY 11/28/23 11/28/23 History (Premarin) hydrochlorothiazide 50 mg tablet 50 mg PO DAILY 11/28/23 11/28/23 History hydrocodone 5 mg-acetaminophen 325 1 tab PO Q6 PRN Pain 11/28/23 11/28/23 History mg tablet levothyroxine 100 mcg tablet 100 mcg PO AM 11/28/23 11/28/23 History metformin 750 mg tablet,extended 750 mg PO DAILYP 11/28/23 11/28/23 History release 24 hr nadolol 20 mg tablet 20 mg PO DAILY 11/28/23 11/28/23 History simvastatin 80 mg tablet 80 mg PO DAILYP 11/28/23 11/28/23 History New Prescriptions to Start Prescriptions: Allergies Allergy/AdvReac Type Severity Reaction Status Date / Time Penicillins Allergy Verified 11/11/23 12:08 Exam Data for Last 24 hours Vital signs and Labs for Last 24 Hours: Temp Pulse Resp BP Pulse Ox O2 Del Method 98.5 F 78 14 128/80 95 Room Air 11/27/23 20:07 11/28/23 00:01 11/28/23 00:01 11/28/23 00:01 11/28/23 00:01 11/28/23 00:01 Laboratory Results - last 24 hr 11/27/23 20:00: WBC 6.6, RBC 4.62, Hgb 16.4 H, Hct 43.2, MCV 93.4, MCH 35.5 H, MCHC 38.0 H, RDW 14.4, Plt Count 369, MPV 7.6, Neut % (Auto) 68.9, Lymph % (Auto) 23.5, [place] % (Auto) 3.7, Eos % (Auto) 2.8, Baso % (Auto) 1.3, Neut # (Auto) 4.6, Lymph # (Auto) 1.6, [place] # (Auto) 0.2, Eos # (Auto) 0.2, Baso # (Auto) 0.1, Sodium 138, Potassium 3.8, Chloride 95 L, Carbon Dioxide 31 H, Anion Gap 15.8 H, BUN 9, Creatinine 0.90, Estimated Creat Clear 116, Estimated GFR 64, Est GFR ( Amer) 78, Glucose 267 H, Calcium 10.3 H, Total Bilirubin 0.7, AST 43 H, ALT 38, Alkaline Phosphatase 88, Troponin I < 0.01, Total Protein 8.7 H, Albumin 4.8, Globulin 3.9 H, Albumin/Globulin Ratio 1.2, Lipase 91, TSH 9.23 H, Thyroxine (T4) 10.3 11/27/23 22:46: VBG pH 7.35, VBG pCO2 53.1 H, VBG pO2 30.1, VBG HCO3 28.3, VBG Total CO2 30.0 H, VBG O2 Saturation 50.6, VBG Base Excess 2.6 H, VBG Lactic Acid 3.2 H 11/27/23 23:16: Urine Color Yellow, Urine Appearance Sl cloudy, Urine pH 6.0, Ur Specific [place] >= 1.030, Urine Protein 1+, Urine Glucose (UA) Negative, Urine Ketones Trace, Urine Blood Negative, Urine Nitrate Negative, Urine Bilirubin 1+ A, Urine Urobilinogen 1.0, Ur Leukocyte Esterase 2+ A, Urine RBC Occasional, Urine WBC 10-20, Ur Squamous Epith Cells 5-10, Urine Bacteria 2+, Urine Yeast Occasional I & O for Last 24 hours: Intake & Output 11/25/23 11/26/23 11/27/23 11/28/23 23:59 23:59 23:59 23:59 Weight 108.862 kg Constitutional Constitutional: mild distress, morbidly obese and cooperative *Routine HEENT Exam Head: Present normocephalic Eye: Present EOMI and PERRL ENT: Present mucous membranes moist *Routine Neck Exam Neck: Present supple; Absent lymphadenopathy *Routine Respiratory Exam Respiratory: Present CTA bilaterally *Routine Cardiovascular Exam Cardiovascular: Present RRR *Routine Abdominal Exam Abdominal: Present soft, normoactive bowel sounds and tenderness *Routine Rectal Exam Rectal:: deferred *Routine Genitalia Exam Genitalia:: deferred *Routine Extremities Exam Extremities: Absent cyanosis, clubbing or edema *Routine Skin Exam Skin: Present warm; Absent rash *Routine Neurological Exam Neurological: Present alert, oriented X3, normal reflexes and moving all extremities Routine Psychiatric Exam Psychiatric: Present anxious H&P: Result Imaging and Cardiology EKG: Status: image reviewed by me, Preliminary report and final report CT scan - abdomen: Status: image reviewed by me, Preliminary report and final report Assessment and Plan *Assessment and plan (1) Pyelonephritis: Status: Acute Category: Medical Code(s): N12 - Tubulo-interstitial nephritis, not specified as acute or chronic (2) Gastroenteritis: Status: Acute Category: Medical Code(s): K52.9 - Noninfective gastroenteritis and colitis, unspecified (3) Flank pain: Status: Acute Category: Medical Code(s): R10.9 - Unspecified abdominal pain (4) Hypothyroidism: Status: Acute Qualifiers: Hypothyroidism type: unspecified Qualified Code(s): E03.9 - Hypothyroidism, unspecified Category: Medical Code(s): E03.9 - Hypothyroidism, unspecified (5) HTN (hypertension): Status: Acute Qualifiers: Hypertension type: unspecified Qualified Code(s): I10 - Essential (primary) hypertension Category: Medical Code(s): I10 - Essential (primary) hypertension (6) Diabetes: Status: Acute Qualifiers: Diabetes mellitus type: type 2 Diabetes mellitus intermediate insulin use: without intermediate use Diabetes mellitus complication status: with other specified complication Qualified Code(s): E11.69 - Type 2 diabetes mellitus with other specified complication Category: Medical Code(s): E11.9 - Type 2 diabetes mellitus without complications (7) Obesity: Status: Acute Qualifiers: Obesity type: due to excess calories Obesity classification: adult class 3 (BMI >= 40) Body mass index: BMI 40.0-44.9 Serious obesity comorbidity presence: unspecified whether serious comorbidity present Qualified Code(s): E66.01 - Morbid (severe) obesity due to excess calories; Z68.41 - Body mass index [BMI] 40.0-44.9, adult Category: Medical Code(s): E66.9 - Obesity, unspecified Plan 58-year-old obese female with PMHx of hypertension, hypothyroidism, DM, who presents emergency department for evaluation of an episode of presyncope, associated with nauseas and vomit. on arrival laboratory workup is concerning for UTI/pyelonephritis given 10-20 WBCs and 2+ bacteria in the setting of flank pain. CT imaging independently interpreted by me and shows no evidence of cholecystitis or ureteral obstruction. radiology reported enteritis. Findings discussed with ED. they requested admission after patient no been able to tolerated PO intakes. Agreed for admission>plan: -pyelonephritis flank pain gastroenteritis : admit patient ceftriaxone given at ER. swicthed to levaquin daily UA pending cont hydration advance diet as tolerated pain management repeat labs -hypothyroidism elevated TSH ordered to repeat in the morning hold syntriod patient has a f/u appt on december 07 with endocrinology. may need adjustment on her dose htn: on hctz. may not be controlled. PCP to f/u resume home dose. Diabtes: on home metformin 750mg obtain a1c obesity encouraged to reduce weight. Lovenox for DVT ppx. On protonix Full code
--- NOTE | 2023-11-28 01:24 | PC.NURSE ---
Nurse to nurse report to Cynthia TEMPLE
[2023-11-28] MEDS: 0.9 % SODIUM CHLORIDE 1000ML 1,000 ML 50 ML IV (02:42)
[2023-11-28] MEDS: LEVOFLOXACIN/D5W 750 MG/150 ML 750 MG/150 ML PIGGYBACK 100 MG IV (02:43)
[2023-11-28 02:53] LABS: Reflex Lactic Add Lactic Reflex
[2023-11-28 06:25] LABS: Basophils # 0.1 K/mm3 (0-0.2); Basophils % 0.6 % (0.1-2.0); Eosinophils # 0.1 K/mm3 (0.0-0.4); Eosinophils % 0.7 % (0.1-12.0); Hematocrit 45.4 % (37.0-47.0); Hemoglobin 14.8 g/dL (12.2-16.2); Lymphocytes # 0.3 K/mm3 (0.7-4.5); Lymphocytes % 3.4 % (10-50); Mean Corpuscular HGB Conc 32.6 g/dL (31.8-35.4); Mean Corpuscular Hemoglobin 30.9 pg (27.0-31.2); Mean Corpuscular Volume 94.7 fl (81-99); Mean Platelet Volume 7.5 fl (7.4-10.4); Monocytes # 0.2 K/mm3 (0.1-1.0); Monocytes % 2.7 % (1.7-9.3); Neutrophils # 7.9 K/mm3 (1.8-7.8); Neutrophils % 92.6 % (37.0-80.0); Platelet Count 291 K/mm3 (142-424); Red Blood Count 4.79 M/mm3 (4.20-5.40); Red Cell Distribution Width 14.1 % (11.5-17.5); White Blood Count 8.5 K/mm3 (4.8-10.8)
[2023-11-28 06:27] LABS: Alanine Aminotransferase 43 U/L (12-78); Albumin/Globulin Ratio 1.3 (1.1-1.8); Alkaline Phosphatase 72 U/L (38-126); Anion Gap 14.6 mEq/L (5-15); Aspartate Amino Transferase 45 U/L (14-36); Bilirubin,Total 0.5 mg/dl (0.2-1.3); Blood Urea Nitrogen 14 mg/dl (7-17); Calcium 8.7 mg/dl (8.4-10.2); Carbon Dioxide 30 mmol/L (22.0-30.0); Chloride 99 mmol/L (98-107); Creatinine Clearance Estimated 81 mL/min (50-200); Estimated Glomerular Filt Rate 86 ml/min (>60); GFR (African American) 104 ML/MIN (>60); Glucose 293 mg/dl (74-100); MANUAL DIFFERENTIAL MANUAL DIFFERENTIAL (MANUAL DIFF); Magnesium 1.4 mg/dl (1.6-2.3); Potassium 3.6 mmoL/L (3.5-5.1); Sodium 140 mmol/L (136-145)
[2023-11-28 06:57] LABS: Thyroid Stimulating Hormone 1.35 uIU/mL (0.465-4.68)
[2023-11-28 07:42] LABS: Hemoglobin A1C 9.7 % (4.0-6.0)
[2023-11-28 07:44] LABS: Lymphocytes % 7 % (10-50); Monocytes % 3 % (2-9); Neutrophils % 90 % (42-76); Platelet Estimate Normal; RBC Morphology Normal; Total Cells Counted 100
[2023-11-28] MEDS: ENOXAPARIN 40MG/0.4ML SYRINGE 40 MG SQ (09:08)
[2023-11-28] MEDS: hydroCHLOROthiazide 25MG TABLET 50 MG PO (09:08)
[2023-11-28] MEDS: DULOXETINE 30MG CAPSULE.DR 60 MG PO (09:08)
--- NOTE | 2023-11-28 10:07 | PC.NURSE ---
pt is resting well in bed. She complains of a dry mouth but is tolerating po intake well.
[2023-11-28 12:29] LABS: POC Glucose,Bedside 206 (70-110)
[2023-11-28] MEDS: METFORMIN 500MG TABLET 750 MG PO (17:29)
[2023-11-28] MEDS: 0.9 % SODIUM CHLORIDE 1000ML 1,000 ML 100 ML IV ×2 (17:30→21:08)
[2023-11-28] MEDS: PRAVASTATIN 40MG TAB 40 MG PO (21:08)
[2023-11-28] MEDS: PANTOPRAZOLE 40MG VIAL 40 MG IV (21:08)
[2023-11-28] MEDS: ZOLPIDEM TARTRATE 10 MG TABLET PO (21:08)
[2023-11-29 04:00] VITALS: BP 146/80; PULSE 85; RESP 17; TEMP 36.8; O2SAT 94; BMI 42.0
--- NOTE | 2023-11-29 06:05 | PC.NURSE ---
Pt alert and oriented. No complaints throughout the night. Pt did get hot, requested cool rag, no other complaints. NO nausea/vomiting. Pt states when urinating, it no longer gaston. Independent in the room. Call light in reach.
[2023-11-29 06:29] LABS: POC Glucose,Bedside 189 (70-110)
[2023-11-29 07:54] VITALS: BP 134/77; PULSE 68; RESP 18; TEMP 37.1; O2SAT 94
[2023-11-29] MEDS: hydroCHLOROthiazide 25MG TABLET 50 MG PO (09:54)
[2023-11-29] MEDS: DULOXETINE 30MG CAPSULE.DR 60 MG PO (09:54)
[2023-11-29] MEDS: ENOXAPARIN 40MG/0.4ML SYRINGE 40 MG SQ (09:55)
--- NOTE | 2023-11-29 09:58 | P.DS_ITS ---
General Admission date:: 11/28/23 Discharge date: 11/29/23 HPI HPI HPI: This is a 58-year-old obese female with PMHx of hypertension, hypothyroidism, DM, who presents emergency department for evaluation of an episode of presyncope, associated with nauseas and vomit. Patient was eating at a local restaurant when suddenly started feeling clammy, nauseous, globally weak and had to be laid down to the ground on the way to the vehicle. They presented here for continued evaluation. No trauma. No other acute complaints at this time. Patient did have an episode of pneumonia 3 weeks ago which resolved with oral antibiotics. She also reported been having right flank discomfort with dark colored urination and what she felt recently 'passing a kidney stone' with subsequent release. Admitted for further treatment. Hospital Course Hospital Course Hospital Course: 58-year-old obese female with PMHx of hypertension, hypothyroidism, DM, who presents emergency department for evaluation of an episode of presyncope, associated with nauseas and vomit. on arrival laboratory workup is concerning for UTI/pyelonephritis given 10-20 WBCs and 2+ bacteria in the setting of flank pain. CT imaging independently interpreted by me and shows no evidence of cholecystitis or ureteral obstruction. radiology reported enteritis. Findings discussed with ED. they requested admission after patient no been able to tolerated PO intakes. Agreed for admission>plan: -pyelonephritis - improved gastroenteritis : improved patient flank pain and Nausea vomiting improved, patient is tolerating diet and she thinks she is ready to go back to home, she denied any complains at dc, patient is stable for dc, patient will be dc on oral Levofloxacin for 5 more days and f/u with PCP in 1 week. patient verbalized understanding. Exam Data for Last 24 hours Vital signs and Labs for Last 24 Hours: Temp Pulse Resp BP Pulse Ox O2 Del Method O2 Flow Rate 98.8 F 68 18 134/77 94 L Room Air 2 11/29/23 07:54 11/29/23 07:54 11/29/23 07:54 11/29/23 07:54 11/29/23 07:54 11/29/23 07:54 11/28/23 01:25 Laboratory Results - last 24 hr 11/28/23 12:22: POC Glucose 206 H 11/29/23 06:21: POC Glucose 189 H I & O for Last 24 hours: Intake & Output 05/17/24 05/18/24 05/19/24 05/20/24 23:59 23:59 23:59 23:59 Intake Total 2213 Output Total 0 / 0 0 / 0 Balance 2213 Weight 108.862 kg 119.476 kg 118.66 kg Microbiology Reports for the Last 24 Hours: Microbiology 11/27/23 23:16 Urine,Clean Catch Urine Culture - Preliminary Constitutional Constitutional: no acute distress *Routine HEENT Exam Head: Present normocephalic Eye: Present EOMI and PERRL ENT: Present mucous membranes moist *Routine Neck Exam Neck: Present supple; Absent lymphadenopathy *Routine Respiratory Exam Respiratory: Present CTA bilaterally *Routine Cardiovascular Exam Cardiovascular: Present RRR *Routine Abdominal Exam Abdominal: Present soft and normoactive bowel sounds; Absent tenderness *Routine Extremities Exam Extremities: Absent cyanosis, clubbing or edema *Routine Skin Exam Skin: Present warm; Absent rash *Routine Neurological Exam Neurological: Present alert and oriented X3 Results Data Completed and Pending Labs on day of discharge: Labs from last 24 hours 11/29/23 11/28/23 06:21 12:22 POC Glucose 189 H 206 H Preliminary micro results at discharge 11/27/23 23:16 Urine Culture - Preliminary Urine,Clean Catch DS: Diagnosis Discharge Diagnosis (1) Pyelonephritis: Status: Acute Code(s): N12 - Tubulo-interstitial nephritis, not specified as acute or chronic (2) Gastroenteritis: Status: Acute Code(s): K52.9 - Noninfective gastroenteritis and colitis, unspecified (3) Flank pain: Status: Acute Code(s): R10.9 - Unspecified abdominal pain (4) Hypothyroidism: Status: Acute Code(s): E03.9 - Hypothyroidism, unspecified Qualifiers: Hypothyroidism type: unspecified Qualified Code(s): E03.9 - Hypothyroidism, unspecified (5) HTN (hypertension): Status: Acute Code(s): I10 - Essential (primary) hypertension Qualifiers: Hypertension type: unspecified Qualified Code(s): I10 - Essential (primary) hypertension (6) Diabetes: Status: Acute Code(s): E11.9 - Type 2 diabetes mellitus without complications Qualifiers: Diabetes mellitus type: type 2 Diabetes mellitus intermediate manager insulin use: without intermediate use Diabetes mellitus complication status: with other specified complication Qualified Code(s): E11.69 - Type 2 diabetes mellitus with other specified complication (7) Obesity: Status: Acute Code(s): E66.9 - Obesity, unspecified Qualifiers: Obesity type: due to excess calories Obesity classification: adult class 3 (BMI >= 40) Serious obesity comorbidity presence: unspecified whether serious comorbidity present Body mass index: BMI 40.0-44.9 Qualified Code(s): E66.01 - Morbid (severe) obesity due to excess calories; Z68.41 - Body mass index [BMI] 40.0-44.9, adult Meds Home Medications and Allergies Home Medications Medication Instructions Recorded Confirmed Type duloxetine 60 mg capsule,delayed 60 mg PO DAILY mood 90 days #90 04/28/18 11/28/23 History release caps zolpidem 10 mg tablet 10 mg PO HS sleep 30 days #30 tabs 04/28/18 11/28/23 History conjugated estrogens 0.3 mg tablet 0.3 mg PO DAILY 11/28/23 11/28/23 History (Premarin) hydrochlorothiazide 50 mg tablet 50 mg PO DAILY 11/28/23 11/28/23 History hydrocodone 5 mg-acetaminophen 325 1 tab PO Q6HP PRN Pain 11/28/23 11/28/23 History mg tablet levothyroxine 100 mcg tablet 100 mcg PO AM 11/28/23 11/28/23 History metformin 750 mg tablet,extended 750 mg PO QPMWITHMEAL Diabetes 11/28/23 11/28/23 History release 24 hr nadolol 20 mg tablet 20 mg PO DAILY 11/28/23 11/28/23 History simvastatin 80 mg tablet 80 mg PO HS 11/28/23 11/28/23 History levofloxacin 750 mg tablet 750 mg PO DAILY 5 days #5 tabs 11/29/23 Rx New Prescriptions to Start Prescriptions: levofloxacin Anika Ramsey Allergies Allergy/AdvReac Type Severity Reaction Status Date / Time Penicillins Allergy Verified 11/11/23 12:08 Discharge Plan Disposition Patient Disposition: Home, Self-Care Condition: Good Follow up Plan Follow up with: Bette Ko APRN [Primary Care Provider] - 12/13/23 10:45 am Prescriptions/Medication Reconciliation: New levofloxacin 750 mg tablet 750 mg PO DAILY 5 Days Qty: 5 0RF Continued zolpidem 10 mg tablet 10 mg PO HS 30 Days Qty: 30 duloxetine 60 mg capsule,delayed release(DR/EC) 60 mg PO DAILY 90 Days Qty: 90 hydrochlorothiazide 50 mg tablet 50 mg PO DAILY Patient Comments: TAKE 1 TABLET BY MOUTH DAILY IN THE MORNING hydrocodone-acetaminophen 5-325 mg tablet 1 tab PO Q6HP PRN (Reason: Pain) Patient Comments: TAKE ONE TABLET ORALLY EVERY 6 HOURS NEEDED simvastatin 80 mg tablet 80 mg PO HS levothyroxine 100 mcg tablet 100 mcg PO AM Patient Comments: TAKE 1 TABLET BY MOUTH EVERY DAY IN THE MORNING ON AN EMPTY STOMACH nadolol 20 mg tablet 20 mg PO DAILY Premarin 0.3 mg Tablet 0.3 mg PO DAILY Rx Instructions: cyclically metformin 750 mg tablet extended release 24 hr 750 mg PO QPMWITHMEAL Patient Comments: TAKE 1 TABLET BY MOUTH EVERY DAY WITH THE EVENING MEAL Problem Reconciliation Problems Reviewed?: Yes Patient Discharge Instructions ACTIVITY: Ambulate as tolerated DIET: continue same diet Patient Instructions: DI for Kidney Infection, DI for Viral Gastroenteritis -- Adult Providers Primary Care Provider: Bette Ko Admit Provider: Anika Ramsey Attending Provider: Anika Ramsey
--- NOTE | 2023-11-30 14:38 | CARE MANAGER ---
Contacted patient related to hospital discharge. She states she has antibiotic and is aware of follow up appointment. She has some bruising from Lovenox injection, but she is keeping an eye on it and will follow up if needed. MAVERICK Tripathi
== END 2023-11-29 13:35 | disposition home or self-care (01) ==
LOC: ER 11-28 01:09 → 2ND 11-28 01:53
PROVIDERS: Emergency Medicine; Nurse Practitioner Family; Admitting Provider Internal Medicine; Emergency Provider Emergency Medicine; PCP Nurse Practitioner; Visit Provider Internal Medicine
DX: N12 Tubulo-interstitial nephritis, not specified as acute or chronic (principal); K52.9 Noninfective gastroenteritis and colitis, unspecified; R10.9 Unspecified abdominal pain; E03.9 Hypothyroidism, unspecified; I10 Essential (primary) hypertension; E11.69 Type 2 diabetes mellitus with other specified complication; E66.01 Morbid (severe) obesity due to excess calories; Z68.41 Body mass index [BMI] 40.0-44.9, adult; Z79.84 Long term (current) use of oral hypoglycemic drugs; Z79.899 Other long term (current) drug therapy
CPT/HCPCS: 71045; 74177; 80053; 81001; 82803; 82962; 83036; 83605; 83690; 83735; 84436; 84443; 84484; 85007; 85025; 87040; 87086; 93005; 99285; G0378; J0696; J1956; J2405; Q9967

== ENCOUNTER 2023-12-10 09:35 | Outpatient (POV) | payer MEDICARE, SELFPAY ==
[2023-12-10 10:39] VITALS: BP 139/80; PULSE 65; RESP 18; O2SAT 95; BMI 41.0
--- NOTE | 2023-12-10 11:20 | A.OFFVIS_ITS ---
HPI Data of Consult Patient: new to practice Consult date: 12/10/23 Requesting Physician: Mary Matute APRN Primary Care Provider: Bette Ko Consult Narrative Reason for consult: Chronic left knee pain. History of present illness: Ms. Espinoza is a 58 year old female who comes our clinic today for consultation regarding chronic left knee pain and treatment options. Patient has had intra- articular cortisone which has not rendered much relief in terms of her left knee pain. Her left knee x-ray shows severe degenerative changes. Patient reports having difficulty with ambulation. Difficulty with standing. Difficulty with extension. She rates her pain 8/10. CC: Mary Matute APRN [facility] Disclaimer: The information contained in this section may have been updated after the patient was seen, as this information can be updated by other users. Medical History (Updated 12/10/23 @ 11:23 by Luis E Garibay CRNA) Depression Osteoarthritis Hypothyroidism HTN (hypertension) Diabetes Surgical History (Updated 12/10/23 @ 10:41 by Shnanan Aguiar RN) Surgical history unknown Family History (Updated 12/10/23 @ 10:41 by Shannan Aguiar RN) Other Unknown family medical history Social History (Updated 12/10/23 @ 10:45 by Shannan Aguiar RN) Smoking Status: Unknown if ever smoked alcohol intake: never substance use type: denies use current occupational status: other Travel in the last 8 weeks: None household members: significant other housing: house current occupation: [employer] caffeine: No Meds Home Medications and Allergies Home Medications Medication Instructions Recorded Confirmed Type duloxetine 60 mg capsule,delayed 60 mg PO DAILY mood 90 days #90 04/28/18 12/10/23 History release caps zolpidem 10 mg tablet 10 mg PO HS sleep 30 days #30 tabs 04/28/18 12/10/23 History conjugated estrogens 0.3 mg tablet 0.3 mg PO DAILY 11/28/23 12/10/23 History (Premarin) hydrochlorothiazide 50 mg tablet 50 mg PO DAILY 11/28/23 12/10/23 History hydrocodone 5 mg-acetaminophen 325 1 tab PO Q6HP PRN Pain 11/28/23 12/10/23 History mg tablet levothyroxine 100 mcg tablet 100 mcg PO AM 11/28/23 12/10/23 History metformin 750 mg tablet,extended 750 mg PO QPMWITHMEAL Diabetes 11/28/23 12/10/23 History release 24 hr nadolol 20 mg tablet 20 mg PO DAILY 11/28/23 12/10/23 History simvastatin 80 mg tablet 80 mg PO HS 11/28/23 12/10/23 History levofloxacin 750 mg tablet 750 mg PO DAILY 5 days #5 tabs 11/29/23 12/10/23 Rx levofloxacin 500 mg tablet 500 mg PO DAILY UTI 12/10/23 12/10/23 History New Prescriptions to Start Prescriptions: Allergies Allergy/AdvReac Type Severity Reaction Status Date / Time Penicillins Allergy Verified 11/11/23 12:08 Objective Vital signs: Pulse Resp BP Pulse Ox O2 Del Method 65 18 139/80 95 Room Air 12/10/23 10:39 12/10/23 10:39 12/10/23 10:39 12/10/23 10:39 12/10/23 10:39 Assessment and Plan *Assessment and plan (1) Chronic pain of left knee: Status: Acute Category: Medical Code(s): M25.562 - Pain in left knee; G89.29 - Other chronic pain (2) Osteoarthritis of left knee: Status: Acute Category: Medical Code(s): M17.12 - Unilateral primary osteoarthritis, left knee Plan Discussed in detail with the patient regarding treatment options. I recommend left genicular nerve block. Patient has tried and failed physical therapy. She has tried and failed home exercise program. Other conservative treatments have failed her regarding the left knee pain such as compounded pain cream, intra- articular cortisone.
== END 2023-12-10 23:59 | disposition home or self-care (01) ==
LOC: SC.PAIN 09:36
PROVIDERS: PCP Nurse Practitioner; Visit Provider Nurse Practitioner Family
DX: M25.562 Pain in left knee (principal); G89.29 Other chronic pain; M17.12 Unilateral primary osteoarthritis, left knee
CPT/HCPCS: 99202; G0463

== ENCOUNTER 2023-12-28 09:14 | Day surgery (SDC) | payer MEDICARE, SELFPAY ==
[2023-12-28 09:31] VITALS: BP 125/50; PULSE 51; RESP 18; O2SAT 98
[2023-12-28] MEDS: LIDOCAINE 1% 5ML PF VIAL 5 ML (09:34)
[2023-12-28 09:35] VITALS: BP 147/88; PULSE 61; RESP 18; TEMP 36.6; O2SAT 97; BMI 40.6
[2023-12-28] MEDS: BUPIVACAINE 0.25% 10ML INJ 25 MG IJ (09:35)
[2023-12-28 09:57] VITALS: BP 173/73; PULSE 58; RESP 18; O2SAT 98
--- NOTE | 2023-12-28 10:03 | EXP.PAIN.PRO ---
Procedure Date: 12/28/23 Time: 09:50 Anesthesiologist:: Luis E Garibay CRNA Complications:: None Pre-procedure Diagnosis:: DJD left knee. Chronic left knee pain. Post-procedure Diagnosis:: Same. Indications for Procedure:: Patient is a very pleasant 58-year-old female comes our clinic today for left knee genicular nerve block. Patient describes left knee pain as constant, dull, aching. Patient has tried and failed intra-articular cortisone injections. Patient's left knee x-ray shows severe degenerative changes. Procedure Details:: Informed consent was obtained and the risk and benefits of the procedure was explained to the patient. The patient was taken to the procedure room. The left knee was prepped using ChloraPrep. I placed 22-gauge needles into the area of the left superior medial genicular nerve, left superior lateral genicular nerve and left inferior medial genicular nerve. Needle placement was confirmed in AP and lateral views with dye. We then injected bupivacaine 0.25% 3 mL's and Depo-Medrol 25 mg into each area of the left superior medial genicular nerve, left superior lateral genicular nerve and left inferior medial genicular nerve. Patient tolerated the procedure well with no complications. Plan and Disposition:: Patient was discharged without incident.
== END 2023-12-28 09:58 | disposition home or self-care (01) ==
LOC: SC.PAINP 09:15
PROVIDERS: PCP Nurse Practitioner; Visit Provider Nurse Anesthetist, Certified Registered
DX: M17.12 Unilateral primary osteoarthritis, left knee (principal); M25.562 Pain in left knee; G89.29 Other chronic pain
CPT/HCPCS: 64454; J1010

== ENCOUNTER 2024-01-24 13:37 | Outpatient (POV) | payer MEDICARE, SELFPAY ==
[2024-01-24 13:54] VITALS: BP 139/83; PULSE 62; RESP 16; O2SAT 95; BMI 39.9
--- NOTE | 2024-01-24 15:54 | EXP.PAIN.SOA ---
[facility] Disclaimer: The information contained in this section may have been updated after the patient was seen, as this information can be updated by other users. Medical History Depression Osteoarthritis Hypothyroidism HTN (hypertension) Diabetes Surgical History Surgical history unknown Family History Other Unknown family medical history Social History Smoking Status: Unknown if ever smoked alcohol intake: never substance use type: denies use current occupational status: other Travel in the last 8 weeks: None household members: significant other housing: house current occupation: [employer] caffeine: No PM Subjective & Objective Subjective Subjective:: Patient is a pleasant 58-year-old female who presents today for follow-up of her first genicular nerve block on the left knee on 12/28/2023. Today she rates her pain a 4 out of 10. She denies any new trauma or injury. Patient states she has been able to increase her activity with overall decreased pain and feels much more functional. Patient states that she has had at least 85 to 90% improvement following this injection. She states she will occasionally still have some tightness however it completely took the burning away and she sleeps much better now. Her J Luis has been reviewed and is appropriate. Review of Systems: General: No recent weight changes, no fever, no sleep disturbances Respiratory: No cough, no shortness of air, no recurring pulmonary infections Cardiovascular/peripheral vascular: No chest pain, no palpitations, no edema, no shortness of breath Gastrointestinal: No new onset incontinence, normal bowel movements reported Genitourinary: No new onset incontinence Musculoskeletal: Left knee pain Psychiatric: [Normal mood/affect] Neurological: [Denies weakness in extremities], [denies balance issues] Pain at rest (0-10 scale): 4 Objective Objective:: Physical Exam: General: Alert and oriented x3, no acute distress, pleasant and cooperative Lungs: Respirations even and unlabored, symmetrical chest expansion Eyes: PERRL Musculoskeletal: Flexion and extension of left knee somewhat guarded secondary to pain, [antalgic gait noted] Neurological: Speech clear, no gross sensory deficit Has patient had previous pain injection?: Yes Percent improvement in pain since last injection: 85 to 90% Conservative treatment options previously tried: Home exercise plan Length of treatment: Longer than 6 weeks Meds Home Medications and Allergies Home Medications Medication Instructions Recorded Confirmed Type duloxetine 60 mg capsule,delayed 60 mg PO DAILY mood 90 days #90 04/28/18 01/24/24 History release caps zolpidem 10 mg tablet 10 mg PO HS sleep 30 days #30 tabs 04/28/18 01/24/24 History conjugated estrogens 0.3 mg tablet 0.3 mg PO DAILY 11/28/23 01/24/24 History (Premarin) hydrochlorothiazide 50 mg tablet 50 mg PO DAILY 11/28/23 01/24/24 History hydrocodone 5 mg-acetaminophen 325 1 tab PO Q6HP PRN Pain 11/28/23 01/24/24 History mg tablet levothyroxine 100 mcg tablet 100 mcg PO AM 11/28/23 01/24/24 History metformin 750 mg tablet,extended 750 mg PO QPMWITHMEAL Diabetes 11/28/23 01/24/24 History release 24 hr nadolol 20 mg tablet 20 mg PO DAILY 11/28/23 01/24/24 History simvastatin 80 mg tablet 80 mg PO HS 11/28/23 01/24/24 History levofloxacin 750 mg tablet 750 mg PO DAILY 5 days #5 tabs 11/29/23 01/24/24 Rx levofloxacin 500 mg tablet 500 mg PO DAILY UTI 12/10/23 01/24/24 History New Prescriptions to Start Prescriptions: Allergies Allergy/AdvReac Type Severity Reaction Status Date / Time Penicillins Allergy Verified 12/28/23 09:34 Assessment and Plan *Assessment and plan (1) Chronic pain of left knee: Status: Acute Category: Medical Code(s): M25.562 - Pain in left knee; G89.29 - Other chronic pain Plan Patient has had significant improvement following her genicular nerve block and does not require any additional injection therapy at this time. Patient will return to clinic in 1 month for reevaluation of symptoms and plan of care. Patient has been instructed to contact the clinic with any concerns before the next appointment. Dr. Schafer has reviewed this note and agrees with this plan of care. This note was dictated using voice recognition software and make contain errors or omissions.
== END 2024-01-24 23:59 | disposition home or self-care (01) ==
LOC: SC.PAIN 13:37
PROVIDERS: PCP Nurse Practitioner; Visit Provider Nurse Practitioner Family
DX: M25.562 Pain in left knee (principal); G89.29 Other chronic pain
CPT/HCPCS: 99212; G0463

== ENCOUNTER 2024-02-24 14:03 | Outpatient (POV) | payer MEDICARE, SELFPAY ==
[2024-02-24 14:24] VITALS: BP 119/79; PULSE 78; RESP 16; O2SAT 96; BMI 38.9
--- NOTE | 2024-02-24 14:31 | A.OFFVIS_ITS ---
[facility] Disclaimer: The information contained in this section may have been updated after the patient was seen, as this information can be updated by other users. Medical History Depression Osteoarthritis Hypothyroidism HTN (hypertension) Diabetes Surgical History Surgical history unknown Family History Other Unknown family medical history Social History Smoking Status: Unknown if ever smoked alcohol intake: never substance use type: denies use current occupational status: unemployed Travel in the last 8 weeks: None household members: significant other housing: house current occupation: [employer] caffeine: No PM Subjective & Objective Subjective Subjective:: Patient is a pleasant 58-year-old female who presents today for follow-up. Today she rates her pain a 6 out of 10. Patient denies any new trauma or injury. She does state that her left knee is starting to go back towards its baseline. Patient did have her first genicular nerve block on 12/28/2023 that did provide at least 85 to 90% relief lasting up until about the last week. Patient did have improved function with decreased pain following this procedure and does state that she would like to proceed forward with repeating it. Patient does describe the pain as a burning, achy sensation that does interfere with her ability perform activities of daily living. Patient does state that this was the first thing that really seem to give her improvement. Patient does also state that she has been starting to have more pain in and around her right knee as well and is open to the option in future for doing the same for that knee. He is prescribed Pearl from her PCP. Her Jluis has been reviewed and is appropriate. Review of Systems: General: No recent weight changes, no fever, no sleep disturbances Respiratory: No cough, no shortness of air, no recurring pulmonary infections Cardiovascular/peripheral vascular: No chest pain, no palpitations, no edema, no shortness of breath Gastrointestinal: No new onset incontinence, normal bowel movements reported Genitourinary: No new onset incontinence Musculoskeletal: Left knee pain Psychiatric: [Normal mood/affect] Neurological: [Denies weakness in extremities], [denies balance issues] Pain at rest (0-10 scale): 6 Objective Objective:: Physical Exam: General: Alert and oriented x3, no acute distress, pleasant and cooperative Lungs: Respirations even and unlabored, symmetrical chest expansion Eyes: PERRL Musculoskeletal: Flexion and extension of left knee somewhat guarded secondary to pain, [antalgic gait noted] Neurological: Speech clear, no gross sensory deficit Has patient had previous pain injection?: No Conservative treatment options previously tried: Home exercise plan Length of treatment: Longer than 6 weeks Meds Home Medications and Allergies Home Medications ?Medication ?Instructions ?Recorded ?Confirmed ?Type duloxetine 60 mg capsule,delayed 60 mg PO DAILY mood 90 days #90 04/28/18 02/24/24 History release caps zolpidem 10 mg tablet 10 mg PO HS sleep 30 days #30 tabs 04/28/18 02/24/24 History conjugated estrogens 0.3 mg tablet 0.3 mg PO DAILY 11/28/23 02/24/24 History (Premarin) hydrochlorothiazide 50 mg tablet 50 mg PO DAILY 11/28/23 02/24/24 History hydrocodone 5 mg-acetaminophen 325 1 tab PO Q6HP PRN Pain 11/28/23 02/24/24 History mg tablet levothyroxine 100 mcg tablet 100 mcg PO AM 11/28/23 02/24/24 History metformin 750 mg tablet,extended 750 mg PO QPMWITHMEAL Diabetes 11/28/23 02/24/24 History release 24 hr nadolol 20 mg tablet 20 mg PO DAILY 11/28/23 02/24/24 History simvastatin 80 mg tablet 80 mg PO HS 11/28/23 02/24/24 History levofloxacin 750 mg tablet 750 mg PO DAILY 5 days #5 tabs 11/29/23 02/24/24 Rx levofloxacin 500 mg tablet 500 mg PO DAILY UTI 12/10/23 02/24/24 History New Prescriptions to Start Prescriptions: Allergies Allergy/AdvReac Type Severity Reaction Status Date / Time Penicillins Allergy Verified 12/28/23 09:34 Assessment and Plan *Assessment and plan (1) Chronic pain of left knee: Status: Acute Category: Medical Code(s): M25.562 - Pain in left knee; G89.29 - Other chronic pain Plan Patient is experiencing worsening pain with limited range of motion of her left knee. Patient did have a successful first genicular nerve block with 85 to 90% improvement lasting up until about the last week. Patient did have this done in December. Patient was counseled regarding the risk and benefits of repeat genicular nerve block and she would like to proceed forward with this plan of care. Patient has tried and failed conservative therapy including oral medications, heat and ice, topicals, continued at home stretching exercise for longer than 6 weeks between injections. We will schedule her for her second genicular nerve block with fluoroscopy. The plan is to proceed forward with a genicular RFA at a later date if she has significant improvement. Patient has been instructed to contact the clinic with any concerns before the next appointment. Dr. Schafer has reviewed this note and agrees with this plan of care. This note was dictated using voice recognition software and make contain errors or omissions. All injections are used with Lidocaine or Bupivacaine and Depo Medrol.
== END 2024-02-24 23:59 | disposition home or self-care (01) ==
LOC: SC.PAIN 14:03
PROVIDERS: PCP Nurse Practitioner; Visit Provider Nurse Practitioner Family
DX: M25.562 Pain in left knee (principal); G89.29 Other chronic pain; Z73.89 Other problems related to life management difficulty; Z79.899 Other long term (current) drug therapy
CPT/HCPCS: 99212; G0463

== ENCOUNTER 2024-03-14 09:12 | Day surgery (SDC) | payer MEDICARE, SELFPAY ==
[2024-03-14 09:39] VITALS: BP 144/71; PULSE 63; RESP 16; TEMP 36.6; O2SAT 96; BMI 38.9
[2024-03-14] MEDS: LIDOCAINE 1% 5ML PF VIAL 5 ML (10:03)
[2024-03-14] MEDS: methylPREDNISolone ACETATE 80MG/ML VIAL 80 MG (10:03)
[2024-03-14] MEDS: BUPIVACAINE 0.25% 10ML INJ 25 MG IJ (10:03)
[2024-03-14 10:13] VITALS: BP 135/65; PULSE 62; RESP 18; O2SAT 96
--- NOTE | 2024-03-14 10:16 | P.PCN_ITS ---
Procedure Date: 03/14/24 Time: 09:55 Anesthesiologist:: Luis E Garibay CRNA Complications:: None Pre-procedure Diagnosis:: DJD left knee. Chronic left knee pain. Post-procedure Diagnosis:: Same. Indications for Procedure:: Patient is a pleasant 58-year-old female comes our clinic today for second left knee genicular nerve block. Patient reports 2-1/2 to 3 months of significant improvement terms of her left knee following her first block. She describes the knee pain as constant, dull, aching. She reports the sharp stabbing pain is no longer there. Procedure Details:: Left knee genicular block Informed consent was obtained and the risk and benefits of the procedure was explained to the patient. The patient was taken to the procedure room. The left knee was prepped using ChloraPrep. I placed 22-gauge needles into the area of th e left superior medial genicular nerve, left superior lateral genicular nerve and left inferior medial genicular nerve. Needle placement was confirmed in AP and lateral views with dye. We then injected bupivacaine 0.25% 3 mL's and Depo-Medrol 25 mg into each area of the left superior medial genicular nerve, left superior lateral genicular nerve and left inferior medial genicular nerve. Patient tolerated the procedure well with no complications. Plan and Disposition:: Patient was discharged without incident.
== END 2024-03-14 10:15 | disposition home or self-care (01) ==
PROVIDERS: PCP Nurse Practitioner; Visit Provider Nurse Anesthetist, Certified Registered
DX: M17.12 Unilateral primary osteoarthritis, left knee (principal); M25.562 Pain in left knee; G89.29 Other chronic pain
CPT/HCPCS: 64454; J1010

== ENCOUNTER 2024-04-05 09:12 | Outpatient (POV) | payer MEDICARE, SELFPAY ==
[2024-04-05 09:25] VITALS: BP 148/86; PULSE 79; RESP 16; O2SAT 95; BMI 38.4
--- NOTE | 2024-04-05 09:42 | EXP.PAIN.SOA ---
[facility] Disclaimer: The information contained in this section may have been updated after the patient was seen, as this information can be updated by other users. Medical History (Reviewed 04/05/24 @ :25 by Kathleen Bender RN) Depression Osteoarthritis Hypothyroidism HTN (hypertension) Diabetes Surgical History (Reviewed 04/05/24 @ :25 by Kathleen Bender RN) Surgical history unknown Family History Other Unknown family medical history Social History (Reviewed 04/05/24 @ : by Kathleen Bender RN) Smoking Status: Unknown if ever smoked alcohol intake: never substance use type: denies use current occupational status: other Travel in the last 8 weeks: None household members: significant other housing: house current occupation: [employer] caffeine: No PM Subjective & Objective Subjective Subjective:: Patient is a pleasant 58-year-old female who presents today for follow-up of her second genicular nerve block on 03/14/2024. Today she rates her pain a 2 out of 10. She states that the first block did wonderful however this 1 is done even better. She is rating at least 90% improvement following this procedure and feels like it is still working well. She states she has been able to increase her activity with overall decreased pain and improved function. Patient does state that she has a 7-day cruise scheduled in August and that she hopes that she will be able to go on this when her knee is at its best. Her J Luis has been reviewed and is appropriate. Review of Systems: General: No recent weight changes, no fever, no sleep disturbances Respiratory: No cough, no shortness of air, no recurring pulmonary infections Cardiovascular/peripheral vascular: No chest pain, no palpitations, no edema, no shortness of breath Gastrointestinal: No new onset incontinence, normal bowel movements reported Genitourinary: No new onset incontinence Musculoskeletal: Left knee pain Psychiatric: [Normal mood/affect] Neurological: [Denies weakness in extremities], [denies balance issues] Pain at rest (0-10 scale): 2 Objective Objective:: Physical Exam: General: Alert and oriented x3, no acute distress, pleasant and cooperative Lungs: Respirations even and unlabored, symmetrical chest expansion Eyes: PERRL Musculoskeletal: Flexion and extension of left knee somewhat guarded secondary to pain, [antalgic gait noted] Neurological: Speech clear, no gross sensory deficit Has patient had previous pain injection?: Yes Percent improvement in pain since last injection: 90% Conservative treatment options previously tried: Home exercise plan Length of treatment: Longer than 12 weeks Meds Home Medications and Allergies Home Medications ?Medication ?Instructions ?Recorded ?Confirmed ?Type duloxetine 60 mg capsule,delayed 60 mg PO DAILY mood 90 days #90 04/28/18 04/05/24 History release caps zolpidem 10 mg tablet 10 mg PO HS sleep 30 days #30 tabs 04/28/18 04/05/24 History conjugated estrogens 0.3 mg tablet 0.3 mg PO DAILY 11/28/23 04/05/24 History (Premarin) hydrochlorothiazide 50 mg tablet 50 mg PO DAILY 11/28/23 04/05/24 History hydrocodone 5 mg-acetaminophen 325 1 tab PO Q6HP PRN Pain 11/28/23 04/05/24 History mg tablet levothyroxine 100 mcg tablet 100 mcg PO AM 11/28/23 04/05/24 History metformin 750 mg tablet,extended 750 mg PO QPMWITHMEAL Diabetes 11/28/23 04/05/24 History release 24 hr nadolol 20 mg tablet 20 mg PO DAILY 11/28/23 04/05/24 History simvastatin 80 mg tablet 80 mg PO HS 11/28/23 04/05/24 History levofloxacin 750 mg tablet 750 mg PO DAILY 5 days #5 tabs 11/29/23 04/05/24 Rx levofloxacin 500 mg tablet 500 mg PO DAILY UTI 12/10/23 04/05/24 History New Prescriptions to Start Prescriptions: Allergies Allergy/AdvReac Type Severity Reaction Status Date / Time Penicillins Allergy Verified 03/14/24 09:39 Assessment and Plan *Assessment and plan (1) Chronic pain of left knee: Status: Acute Category: Medical Code(s): M25.562 - Pain in left knee; G89.29 - Other chronic pain Plan Patient has had significant improvement with her second genicular nerve block and does not require any additional interventions at this time. Patient will return to clinic in 1 month for reevaluation of symptoms and plan of care. Patient has been instructed to contact the clinic with any concerns before the next appointment. Dr. Schafer has reviewed this note and agrees with this plan of care. This note was dictated using voice recognition software and make contain errors or omissions. All injections are used with Lidocaine or Bupivacaine and Depo Medrol.
== END 2024-04-05 23:59 | disposition home or self-care (01) ==
LOC: SC.PAIN 09:13
PROVIDERS: PCP Nurse Practitioner; Visit Provider Nurse Practitioner Family
DX: M25.562 Pain in left knee (principal); G89.29 Other chronic pain
CPT/HCPCS: 99212; G0463

== ENCOUNTER 2024-05-04 10:30 | Outpatient (POV) | payer MEDICARE, SELFPAY ==
--- NOTE | 2024-05-04 11:03 | EXP.PAIN.SOA ---
[facility] Disclaimer: The information contained in this section may have been updated after the patient was seen, as this information can be updated by other users. Medical History (Reviewed 04/05/24 @ : by Kathleen Bender RN) Depression Osteoarthritis Hypothyroidism HTN (hypertension) Diabetes Surgical History (Reviewed 04/05/24 @ :25 by Kathleen Bender RN) Surgical history unknown Family History (Reviewed 04/05/24 @ :25 by Kathleen Bender RN) Other Unknown family medical history Social History (Reviewed 04/05/24 @ : by Kathleen Bender RN) Smoking Status: Unknown if ever smoked alcohol intake: never substance use type: denies use current occupational status: other Travel in the last 8 weeks: None household members: significant other housing: house current occupation: [employer] caffeine: No PM Subjective & Objective Subjective Subjective:: Patient is a pleasant 59-year-old female who presents today for 1 month follow-up. Today she rates her pain a 1 out of 10. Patient denies any new changes. She states that she has continued to do well following her genicular nerve block from March 14. This was her second 1 and it did provide 90% relief. She states that her knee is not bothering her at all. She does state that she had 1 night that it seemed to irritate her but then it quickly went away and she has not had any problems since. Patient is scheduled for a cruise coming up towards August and wants to make sure she is at her top shape. Her J Luis has been reviewed and is appropriate. Review of Systems: General: No recent weight changes, no fever, no sleep disturbances Respiratory: No cough, no shortness of air, no recurring pulmonary infections Cardiovascular/peripheral vascular: No chest pain, no palpitations, no edema, no shortness of breath Gastrointestinal: No new onset incontinence, normal bowel movements reported Genitourinary: No new onset incontinence Musculoskeletal: Knee pain Psychiatric: [Normal mood/affect] Neurological: [Denies weakness in extremities], [denies balance issues] Pain at rest (0-10 scale): 1 Objective Objective:: Physical Exam: General: Alert and oriented x3, no acute distress, pleasant and cooperative Lungs: Respirations even and unlabored, symmetrical chest expansion Eyes: PERRL Musculoskeletal: Flexion and extension of knee somewhat guarded secondary to pain, [antalgic gait noted] Neurological: Speech clear, no gross sensory deficit Has patient had previous pain injection?: No Conservative treatment options previously tried: Home exercise plan Length of treatment: Longer than 12 weeks Meds Home Medications and Allergies Home Medications ?Medication ?Instructions ?Recorded ?Confirmed ?Type duloxetine 60 mg capsule,delayed 60 mg PO DAILY mood 90 days #90 04/28/18 04/05/24 History release caps zolpidem 10 mg tablet 10 mg PO HS sleep 30 days #30 tabs 04/28/18 04/05/24 History conjugated estrogens 0.3 mg tablet 0.3 mg PO DAILY 11/28/23 04/05/24 History (Premarin) hydrochlorothiazide 50 mg tablet 50 mg PO DAILY 11/28/23 04/05/24 History hydrocodone 5 mg-acetaminophen 325 1 tab PO Q6HP PRN Pain 11/28/23 04/05/24 History mg tablet levothyroxine 100 mcg tablet 100 mcg PO AM 11/28/23 04/05/24 History metformin 750 mg tablet,extended 750 mg PO QPMWITHMEAL Diabetes 11/28/23 04/05/24 History release 24 hr nadolol 20 mg tablet 20 mg PO DAILY 11/28/23 04/05/24 History simvastatin 80 mg tablet 80 mg PO HS 11/28/23 04/05/24 History levofloxacin 750 mg tablet 750 mg PO DAILY 5 days #5 tabs 11/29/23 04/05/24 Rx levofloxacin 500 mg tablet 500 mg PO DAILY UTI 12/10/23 04/05/24 History New Prescriptions to Start Prescriptions: Allergies Allergy/AdvReac Type Severity Reaction Status Date / Time Penicillins Allergy Verified 03/14/24 09:39 Assessment and Plan *Assessment and plan (1) Chronic pain of left knee: Status: Acute Category: Medical Code(s): M25.562 - Pain in left knee; G89.29 - Other chronic pain Plan Patient is still doing well following her second genicular nerve block and does not require any additional interventions. Patient will return to clinic in 3 months for reevaluation of symptoms and plan of care. Patient has been instructed to contact the clinic with any concerns before the next appointment. Dr. Schafer has reviewed this note and agrees with this plan of care. This note was dictated using voice recognition software and make contain errors or omissions. All injections are used with Lidocaine or Bupivacaine and Depo Medrol.
[2024-05-04 12:26] VITALS: BP 120/78; PULSE 65; RESP 18; O2SAT 97; BMI 37.4
== END 2024-05-04 23:59 | disposition home or self-care (01) ==
LOC: SC.PAIN 10:32
PROVIDERS: PCP Nurse Practitioner; Visit Provider Nurse Practitioner Family
DX: M25.562 Pain in left knee (principal); G89.29 Other chronic pain
CPT/HCPCS: 99212; G0463

== ENCOUNTER 2024-07-13 09:06 | Outpatient (POV) | payer MEDICARE, SELFPAY ==
[2024-07-13 09:25] VITALS: BP 132/69; PULSE 66; RESP 18; O2SAT 97; BMI 37.1
--- NOTE | 2024-07-13 09:48 | EXP.PAIN.SOA ---
[facility] Disclaimer: The information contained in this section may have been updated after the patient was seen, as this information can be updated by other users. Medical History (Reviewed 04/05/24 @ :25 by Kathleen Bender RN) Depression Osteoarthritis Hypothyroidism HTN (hypertension) Diabetes Surgical History (Reviewed 04/05/24 @ :25 by Kathleen Bender RN) Surgical history unknown Family History (Reviewed 04/05/24 @ :25 by Kathleen Bender RN) Other Unknown family medical history Social History (Reviewed 04/05/24 @ : by Kathleen Bender RN) Smoking Status: Unknown if ever smoked alcohol intake: never substance use type: denies use current occupational status: other Travel in the last 8 weeks: None household members: significant other housing: house current occupation: [employer] caffeine: No PM Subjective & Objective Subjective Subjective:: Patient is a pleasant 59-year-old female who presents today for follow-up. Today she does currently rate her pain a 1 out of 10 however does state that just the other day her knee pain went to a 7 out of 10 and described it as a constant ache that nothing seemed to help. Patient states that pain is very bothersome and does interfere with her ability perform activities of daily living such as cooking and cleaning. Patient has had 2 genicular nerve blocks that did provide anywhere from 85 to 90% relief and has lasted several months with each 1. Patient does state that she would like to see about getting scheduled for her radiofrequency ablation before she has her trip on a cruise coming up in August for any way possible. Patient states that with the pain already coming back she knows by the time of that vacation with increased activity that it will be much more severe. Her J Luis has been reviewed and is appropriate. Review of Systems: General: No recent weight changes, no fever, no sleep disturbances Respiratory: No cough, no shortness of air, no recurring pulmonary infections Cardiovascular/peripheral vascular: No chest pain, no palpitations, no edema, no shortness of breath Gastrointestinal: No new onset incontinence, normal bowel movements reported Genitourinary: No new onset incontinence Musculoskeletal: Left knee pain Psychiatric: [Normal mood/affect] Neurological: [Denies weakness in extremities], [denies balance issues] Pain at rest (0-10 scale): 7 Objective Objective:: Physical Exam: General: Alert and oriented x3, no acute distress, pleasant and cooperative Lungs: Respirations even and unlabored, symmetrical chest expansion Eyes: PERRL Musculoskeletal: Flexion and extension of left knee somewhat guarded secondary to pain, [antalgic gait noted] Neurological: Speech clear, no gross sensory deficit Has patient had previous pain injection?: No Conservative treatment options previously tried: Home exercise plan Length of treatment: Longer than 12 weeks Meds Home Medications and Allergies Home Medications ?Medication ?Instructions ?Recorded ?Confirmed ?Type duloxetine 60 mg capsule,delayed 60 mg PO DAILY mood 90 days #90 04/28/18 07/13/24 History release caps zolpidem 10 mg tablet 10 mg PO HS sleep 30 days #30 tabs 04/28/18 07/13/24 History conjugated estrogens 0.3 mg tablet 0.3 mg PO DAILY 11/28/23 07/13/24 History (Premarin) hydrochlorothiazide 50 mg tablet 50 mg PO DAILY 11/28/23 07/13/24 History hydrocodone 5 mg-acetaminophen 325 1 tab PO Q6HP PRN Pain 11/28/23 07/13/24 History mg tablet metformin 750 mg tablet,extended 750 mg PO QPMWITHMEAL Diabetes 11/28/23 07/13/24 History release 24 hr nadolol 20 mg tablet 20 mg PO DAILY 11/28/23 07/13/24 History simvastatin 80 mg tablet 80 mg PO HS 11/28/23 07/13/24 History New Prescriptions to Start Prescriptions: Allergies Allergy/AdvReac Type Severity Reaction Status Date / Time Penicillins Allergy Verified 03/14/24 09:39 Assessment and Plan *Assessment and plan (1) Chronic pain of left knee: Status: Acute Category: Medical Code(s): M25.562 - Pain in left knee; G89.29 - Other chronic pain Plan Patient is experiencing worsening pain in her left knee with limited range of motion. Patient did have her first genicular nerve block on December 28 with 85 to 90% improvement lasting approximately 2 months with her second genicular block on 03 14 providing 90% relief and has lasted up until about the last month. I did review over with her the risk and benefits of the genicular radiofrequency ablation and she would like to proceed forward with this plan of care. Patient has tried and failed conservative therapy including oral medications, heat and ice, topicals, at home stretching exercise for longer than 12 weeks between injections. Patient will be scheduled for her left genicular radiofrequency ablation using thermal nonpulsed ablation at 80 ?C under fluoroscopy. Patient has been instructed to contact the clinic with any concerns before the next appointment. Dr. Schafer has reviewed this note and agrees with this plan of care. This note was dictated using voice recognition software and make contain errors or omissions. All injections are used with Lidocaine, Bupivacaine and Depo Medrol. Occasionally urine drug screen is needed to verify patient's compliance with our office pain contract. This is ordered based off specific treatments related to chronic pain with the potential to abuse certain medications.
== END 2024-07-13 23:59 | disposition home or self-care (01) ==
LOC: SC.PAIN 09:08
PROVIDERS: PCP Nurse Practitioner; Visit Provider Nurse Practitioner Family
DX: M25.562 Pain in left knee (principal); G89.29 Other chronic pain; Z73.89 Other problems related to life management difficulty
CPT/HCPCS: 99212; G0463

== ENCOUNTER 2024-07-25 12:47 | Day surgery (SDC) | payer MEDICARE, SELFPAY ==
[2024-07-25 13:06] VITALS: BP 172/92; PULSE 74; RESP 16; TEMP 36.9; O2SAT 100; BMI 37.4
[2024-07-25] MEDS: LIDOCAINE 1% 5ML PF VIAL 5 ML (13:27)
[2024-07-25] MEDS: methylPREDNISolone ACETATE 80MG/ML VIAL 80 MG (13:27)
[2024-07-25] MEDS: BUPIVACAINE 0.25% 10ML INJ 25 MG IJ (13:27)
[2024-07-25 13:40] VITALS: BP 137/86; PULSE 77; RESP 16; O2SAT 95
--- NOTE | 2024-07-25 14:00 | P.PCN_ITS ---
Procedure Date: 07/25/24 Time: 13:40 Anesthesiologist:: Luis E Garibay CRNA Complications:: None Pre-procedure Diagnosis:: DJD left knee. Chronic left knee pain. Post-procedure Diagnosis:: Same. Indications for Procedure:: Patient is a pleasant 59-year-old female who comes our clinic today for a left genicular radiofrequency ablation. Patient has chronic left knee pain she describes as constant, dull, aching. Patient has responded very well to the left genicular blocks in the past. She rates her pain today 6/10. Procedure Details:: Left knee genicular RFA: Informed consent was obtained risk and benefits of the procedure were explained to the patient. Patient was taken the procedure room. The left knee was prepped using ChloraPrep. The skin and subcutaneous tissues were anesthetized using lidocaine. I placed 20-gauge RF needles into the superior lateral genicular nerve area of the superior medial genicular nerve area and inferior medial genicular nerve area we underwent sensory stimulation. There is good sensory stimulation at 1 V. We underwent motor stimulation. There was no motor stimulation at 3 V. We then anesthetized all 3 nerves with bupivacaine and Depo- Medrol. We then burned each genicular nerve superior lateral, superior medial and inferior medial 80 ?C for 4 minutes. Patient tolerated procedure well with no complications. Plan and Disposition:: Patient was discharged without incident.
== END 2024-07-25 13:41 | disposition home or self-care (01) ==
PROVIDERS: PCP Nurse Practitioner; Visit Provider Nurse Anesthetist, Certified Registered
DX: M17.12 Unilateral primary osteoarthritis, left knee (principal); M25.562 Pain in left knee; G89.29 Other chronic pain
CPT/HCPCS: 64624; J1010

== ENCOUNTER 2024-08-09 09:38 | Outpatient (POV) | payer MEDICARE, SELFPAY ==
--- NOTE | 2024-08-09 09:51 | EXP.PAIN.SOA ---
[facility] Disclaimer: The information contained in this section may have been updated after the patient was seen, as this information can be updated by other users. Medical History Depression Osteoarthritis Hypothyroidism HTN (hypertension) Diabetes Surgical History Surgical history unknown Family History Other Unknown family medical history Social History (Reviewed 04/05/24 @ : by Kathleen Bender RN) Smoking Status: Unknown if ever smoked alcohol intake: never substance use type: denies use current occupational status: other Travel in the last 8 weeks: None household members: significant other housing: house current occupation: [employer] caffeine: No PM Subjective & Objective Subjective Subjective:: Patient is a pleasant 59-year-old female who presents today for follow-up of left genicular RFA on 07/25/2024. Today she rates her pain a 2 out of 10. Patient states she has had at least 90% improvement following this injection. She states that she is thoroughly impressed and feels great. She does state that she has a little bit of an ache on the inside of the knee however it is very manageable and nothing like what it was. Her J Luis has been reviewed and is appropriate. Review of Systems: General: No recent weight changes, no fever, no sleep disturbances Respiratory: No cough, no shortness of air, no recurring pulmonary infections Cardiovascular/peripheral vascular: No chest pain, no palpitations, no edema, no shortness of breath Gastrointestinal: No new onset incontinence, normal bowel movements reported Genitourinary: No new onset incontinence Musculoskeletal: Left knee pain Psychiatric: [Normal mood/affect] Neurological: [Denies weakness in extremities], [denies balance issues] Pain at rest (0-10 scale): 2 Objective Objective:: Physical Exam: General: Alert and oriented x3, no acute distress, pleasant and cooperative Lungs: Respirations even and unlabored, symmetrical chest expansion Eyes: PERRL Musculoskeletal: Flexion and extension of left knee] somewhat guarded secondary to pain Neurological: Speech clear, no gross sensory deficit Has patient had previous pain injection?: Yes Percent improvement in pain since last injection: 90% Conservative treatment options previously tried: Home exercise plan Length of treatment: Longer than 12 weeks Meds Home Medications and Allergies Home Medications ?Medication ?Instructions ?Recorded ?Confirmed ?Type duloxetine 60 mg capsule,delayed 60 mg PO DAILY mood 90 days #90 04/28/18 07/13/24 History release caps zolpidem 10 mg tablet 10 mg PO HS sleep 30 days #30 tabs 04/28/18 07/13/24 History conjugated estrogens 0.3 mg tablet 0.3 mg PO DAILY 11/28/23 07/13/24 History (Premarin) hydrochlorothiazide 50 mg tablet 50 mg PO DAILY 11/28/23 07/13/24 History hydrocodone 5 mg-acetaminophen 325 1 tab PO Q6HP PRN Pain 11/28/23 07/13/24 History mg tablet metformin 750 mg tablet,extended 750 mg PO QPMWITHMEAL Diabetes 11/28/23 07/13/24 History release 24 hr nadolol 20 mg tablet 20 mg PO DAILY 11/28/23 07/13/24 History simvastatin 80 mg tablet 80 mg PO HS 11/28/23 07/13/24 History New Prescriptions to Start Prescriptions: Allergies Allergy/AdvReac Type Severity Reaction Status Date / Time Penicillins Allergy Verified 03/14/24 09:39 Assessment and Plan *Assessment and plan (1) Chronic pain of left knee: Status: Acute Category: Medical Code(s): M25.562 - Pain in left knee; G89.29 - Other chronic pain Plan Patient has had significant improvement following her left genicular RFA and does not require any additional injection therapy at this time. Patient will return to clinic in 6 weeks for reevaluation of symptoms and plan of care. Patient has been instructed to contact the clinic with any concerns before the next appointment. Dr. Schafer has reviewed this note and agrees with this plan of care. This note was dictated using voice recognition software and make contain errors or omissions. All injections are used with Lidocaine, Bupivacaine and Depo Medrol. Occasionally urine drug screen is needed to verify patient's compliance with our office pain contract. This is ordered based off specific treatments related to chronic pain with the potential to abuse certain medications.
[2024-08-09 11:52] VITALS: BP 154/86; PULSE 69; RESP 18; O2SAT 95; BMI 35.9
== END 2024-08-09 23:59 | disposition home or self-care (01) ==
LOC: SC.PAIN 09:39
PROVIDERS: PCP Nurse Practitioner; Visit Provider Nurse Practitioner Family
DX: M25.562 Pain in left knee (principal); G89.29 Other chronic pain
CPT/HCPCS: 99212; G0463

== ENCOUNTER 2024-08-31 15:44 | Outpatient (CLI) | payer MEDICARE, SELFPAY ==
--- NOTE | 2024-08-31 15:48 | MM_ITS ---
PROCEDURE INFORMATION: Exam: MG Bilateral Diagnostic Breast Tomosynthesis Exam date and time: 08/31/2024 3:57 PM Age: 59 years old Clinical indication: Left breast palpable lump TECHNIQUE: Imaging protocol: Bilateral Diagnostic tomosynthesis and 2D mammography including computer-aided detection (CAD) when performed. Unilateral or bilateral exam. COMPARISON: 1. MG MM DIG SCREENING MAMM BI W/CAD 11/26/2022 8:16 AM 2. MG MM DIG SCREENING MAMM BI W/CAD 06/02/2021 9:19 AM FINDINGS: MAMMOGRAPHY: Breast composition: The breasts are heterogeneously dense, which may obscure small masses. Breast mammogram findings: A skin marker was placed over an area of palpable concern in the lateral left breast . This corresponds to a lobulated approximately 1.8 cm mass with associated architectural distortion . No suspicious calcifications in either breast. No skin thickening or axillary adenopathy. No suspicious findings in the right breast. IMPRESSION: Patient return for left breast ultrasound for full evaluation of the patient's complaint of palpable abnormality as described above. ASSESSMENT: BI-RADS Category 0: Incomplete- Need Additional Imaging Evaluation
== END 2024-08-31 23:59 | disposition home or self-care (01) ==
LOC: RAD 15:45
PROVIDERS: PCP Nurse Practitioner; Visit Provider Nurse Practitioner
DX: Z12.31 Encounter for screening mammogram for malignant neoplasm of breast (principal); R22.9 Localized swelling, mass and lump, unspecified
CPT/HCPCS: 77062; 77066; G0279

== ENCOUNTER 2024-09-13 14:19 | Outpatient (CLI) | payer MEDICARE, SELFPAY ==
--- NOTE | 2024-09-13 14:23 | US_ITS ---
PROCEDURE INFORMATION: Exam: US Left Breast, Complete Exam date and time: 09/13/2024 2:28 PM Age: 59 years old Clinical indication: Palpable lump in the left breast TECHNIQUE: Imaging protocol: Complete ultrasound of all four quadrants of the left breast and the retroareolar regions, including ultrasound of the axilla when performed. COMPARISON: MG MM DIG MAMM BI DX W/CAD 08/31/2024 3:57 PM FINDINGS: ULTRASOUND: Breast ultrasound findings: At the palpable site of concern, 4 o'clock axis, 5 cm from the nipple, there is an indistinct irregular mass with associated shadowing measuring 2.1 x 1.4 x 2.2 cm. There is increased blood flow within this mass. In the left breast lower outer quadrant, 5 o'clock axis, 3 cm from the nipple, there is a no other hypoechoic irregular adjacent mass located deep to the main palpable mass, measuring 2.0 x 1.3 x 1.6 cm. The findings correlate to the nodular appearance of the tissue in this region on mammography. In the left breast 2 o'clock axis, 7 cm from the nipple, there is an indistinct hypoechoic mass which measures 0.7 x 0.9 x 0.5 cm. In the left breast 2 o'clock axis, 6 cm from the nipple, there is a 0.6 x 0.4 x 0.3 cm hypoechoic mass. In the left breast 1 o'clock axis, 5 cm from the nipple there is a hypoechoic mass measuring 0.3 x 0.5 x 0.3 cm. There is no left axillary adenopathy. IMPRESSION: 1. Palpable masses in the left breast lower outer quadrant are suspicious. Ultrasound-guided needle biopsy is recommended. 2. There are multiple indeterminate masses between the left breast 1:00 to 2:00 axis, described above. Ultrasound-guided biopsy of the most prominent mass at the 2 o'clock axis, 7 cm from the nipple is recommended. ASSESSMENT: BI-RADS Category 5: Highly suggestive of malignancy.
== END 2024-09-13 23:59 | disposition home or self-care (01) ==
LOC: RAD 14:20
PROVIDERS: PCP Nurse Practitioner; Visit Provider Nurse Practitioner
DX: N63.23 Unspecified lump in the left breast, lower outer quadrant (principal)
CPT/HCPCS: 76641

== ENCOUNTER 2024-09-21 10:57 | Outpatient (POV) | payer MEDICARE, SELFPAY ==
[2024-09-21 11:06] VITALS: BP 139/92; BP 155/92; PULSE 62; RESP 14; O2SAT 97; BMI 35.9
--- NOTE | 2024-09-21 11:15 | A.OFFVIS_ITS ---
[facility] Disclaimer: The information contained in this section may have been updated after the patient was seen, as this information can be updated by other users. Medical History Depression Osteoarthritis Hypothyroidism HTN (hypertension) Diabetes Surgical History Surgical history unknown Family History Other Unknown family medical history Social History Smoking Status: Unknown if ever smoked alcohol intake: never substance use type: denies use current occupational status: other Travel in the last 8 weeks: None household members: significant other housing: house current occupation: [employer] caffeine: No PM Subjective & Objective Subjective Subjective:: Patient is a pleasant 59-year-old female who presents today for 6 weeks follow- up of her left genicular RFA from July. Today she rates her pain just a 1 out of 10. She denies any new trauma or injury. She states that she continues to do really well from this procedure and that the pain has been much more manageable. Patient did have a little elevated blood pressure today and states that she did just take her BP meds and that she has had a little extra stress recently. Patient states she found a lump on her left breast that she has been worrying about and that she does have some follow-up coming up towards the end of this month. Patient states she has not been sleeping as well due to this. Her J Luis has been reviewed and is appropriate. Review of Systems: General: No recent weight changes, no fever, no sleep disturbances Respiratory: No cough, no shortness of air, no recurring pulmonary infections Cardiovascular/peripheral vascular: No chest pain, no palpitations, no edema, no shortness of breath Gastrointestinal: No new onset incontinence, normal bowel movements reported Genitourinary: No new onset incontinence Musculoskeletal: Left knee pain Psychiatric: [Normal mood/affect] Neurological: [Denies weakness in extremities], [denies balance issues] Pain at rest (0-10 scale): 1 Objective Objective:: Physical Exam: General: Alert and oriented x3, no acute distress, pleasant and cooperative Lungs: Respirations even and unlabored, symmetrical chest expansion Eyes: PERRL Musculoskeletal: Flexion and extension of left knee within normal limits Neurological: Speech clear, no gross sensory deficit Has patient had previous pain injection?: No Conservative treatment options previously tried: Home exercise plan Length of treatment: Longer than 12 weeks Meds Home Medications and Allergies Home Medications ?Medication ?Instructions ?Recorded ?Confirmed ?Type duloxetine 60 mg capsule,delayed 60 mg PO DAILY mood 90 days #90 04/28/18 09/21/24 History release caps zolpidem 10 mg tablet 10 mg PO HS sleep 30 days #30 tabs 04/28/18 09/21/24 History conjugated estrogens 0.3 mg tablet 0.3 mg PO DAILY 11/28/23 09/21/24 History (Premarin) hydrochlorothiazide 50 mg tablet 50 mg PO DAILY 11/28/23 09/21/24 History hydrocodone 5 mg-acetaminophen 325 1 tab PO Q6HP PRN Pain 11/28/23 09/21/24 History mg tablet metformin 750 mg tablet,extended 750 mg PO QPMWITHMEAL Diabetes 11/28/23 09/21/24 History release 24 hr nadolol 20 mg tablet 20 mg PO DAILY 11/28/23 09/21/24 History simvastatin 80 mg tablet 80 mg PO HS 11/28/23 09/21/24 History New Prescriptions to Start Prescriptions: Allergies Allergy/AdvReac Type Severity Reaction Status Date / Time Penicillins Allergy Verified 03/14/24 09:39 Assessment and Plan *Assessment and plan (1) Chronic pain of left knee: Status: Acute Category: Medical Code(s): M25.562 - Pain in left knee; G89.29 - Other chronic pain Plan Patient has continued to have significant relief following her left genicular nerve block and does not require any additional interventions at this time. Patient will return to clinic in 3 months. I did discuss with patient if she needs anything in between now and her next visit please contact's and that we are happy to help with anything. patient acknowledges understanding. Patient has been instructed to contact the clinic with any concerns before the next appointment. Dr. Schafer has reviewed this note and agrees with this plan of care. This note was dictated using voice recognition software and make contain errors or omissions. All injections are used with Lidocaine, Bupivacaine and Depo Medrol. Occasionally urine drug screen is needed to verify patient's compliance with our office pain contract. This is ordered based off specific treatments related to chronic pain with the potential to abuse certain medications.
== END 2024-09-21 23:59 | disposition home or self-care (01) ==
LOC: SC.PAIN 11:00
PROVIDERS: PCP Nurse Practitioner; Visit Provider Nurse Practitioner Family
DX: M25.562 Pain in left knee (principal); G89.29 Other chronic pain
CPT/HCPCS: 99212; G0463

== ENCOUNTER 2024-10-02 07:13 | Outpatient (CLI) | payer MEDICARE, SELFPAY ==
--- NOTE | 2024-10-02 07:32 | US_ITS ---
FINAL REPORT CLINICAL HISTORY: LT BREAST MASSES - DR. DARWIN ISAAC - 4/5:00 NEEDLE CORE AND 2:00 MAMMOTOME FINDINGS: ULTRASOUND-GUIDED LEFT BREAST CORE BIOPSY, 1 of 2 directed toward a left lower outer quadrant mass at 4:00 HISTORY: abn mammo left breast, UOQ; R92.8-Other abnormal and inconclusive findings on diagnostic imaging of breast left breast mass TECHNIQUE: The left breast was prepped in a routine sterile fashion and locally anesthetized with 1% lidocaine. Using sonographic guidance a 15 gauge needle was directed toward the lesion of interest. The needle was positioned within the outer periphery of the lesion. A total of 3 passes were made with a 16 gauge core biopsy needle. A biopsy marker clip was deployed in satisfactory position. A post biopsy mammogram was performed and dictated separately. Limited postbiopsy images showed no evidence of significant hemorrhage. Procedure was well tolerated. IMPRESSION: 1. Technically successful image guided biopsy of left breast lesion as above. Histopathology results reveal invasive lobular carcinoma. Pathology is concordant with mammographic findings. Surgical and medical oncologic follow-up recommended ULTRASOUND-GUIDED LEFT BREAST CORE BIOPSY, 2 of 2 with lesion located in the upper inner quadrant at 2:00 HISTORY: abn mammo left breast, UOQ; R92.8-Other abnormal and inconclusive findings on diagnostic imaging of breast TECHNIQUE: The left breast was prepped in a routine sterile fashion and locally anesthetized with 1% lidocaine. An 9-gauge vacuum-assisted hand-held device was utilized. The needle was positioned posterior to the lesion. Multiple vacuum assisted core samples were obtained. Lesion was noted to be significantly smaller following biopsy. A biopsy marker clip was deployed in satisfactory position. A post biopsy mammogram was performed and dictated separately. Limited postbiopsy images showed no evidence of significant hemorrhage. Marker clip is noted to be in satisfactory position. Procedure was well tolerated. IMPRESSION: 1. Technically successful guided vacuum assisted core biopsy of left breast lesion as above. 2. Biopsy marker clip deployed Histopathology results reveal invasive lobular carcinoma. Pathology is concordant with mammographic findings. Recommend medical and surgical oncologic follow-up Authenticated and ERN
--- NOTE | 2024-10-02 08:49 | MM_ITS ---
FINAL REPORT CLINICAL HISTORY: S/P BIOPSY , CLIP PLACEMENT FINDINGS: MAMMOGRAM LEFT 2D TECHNIQUE: Standard digital 2D views COMPARISON: 08/31/2024 DENSITY: There are scattered areas of fibroglandular density FINDINGS: Post biopsy marker clips are noted in satisfactory position. The clips are seen at 2-3:00 and at 5-6:00. Postbiopsy changes are noted. IMPRESSION: Biopsy marker clips in good position ASSESSMENT: Post procedure mammogram for marker placement RECOMMENDATION: Given findings of invasive lobular carcinoma for both biopsies, surgical and medical oncologic follow-up recommended. Authenticated and ERN
== END 2024-10-02 23:59 | disposition home or self-care (01) ==
LOC: RAD 07:14
PROVIDERS: PCP Nurse Practitioner; Visit Provider Nurse Practitioner
DX: R92.8 Other abnormal and inconclusive findings on diagnostic imaging of breast (principal); N63.23 Unspecified lump in the left breast, lower outer quadrant
CPT/HCPCS: 19083; 77065

== ENCOUNTER 2024-12-22 13:57 | Outpatient (POV) | payer MEDICARE, SELFPAY ==
--- OUTSIDE RECORDS SUMMARY | 2024-10-24 08:30 | XMS_ITS | Encounter Summary ---
Author Organization [facility] Address [address] [place] [address] Care Team Providers Care Blunger Loader Name Role Phone Fani Ko CINDER DUMP CRANE OPERATOR Primary Care Provider [phone] Reason for Visit * Consultation (Routine) - Closed Specialty Diagnoses / Procedures Referred By Adriana nogueira Referred To Contact Hematology and Oncology Diagnoses Breast cancer Fani Ko, MICKY [address] [place] [address] Phone: tel: fax: Referral ID Status Reason Start Date Expiration Date V isits Requested Visits Authorized [id number] Closed Specialty Services Required 10/12/2024 2026 1 1 Encounter Details Date Type Department Care Team (Late st Contact Info) Description 10/24/2024 8:30 AM EDT Office Visit [facility] [address] [place] [address] Evonne Martinez MD [address] [facility] [address] [place] [address] Invasive lobular carcinoma of breast in female (Primary Dx); Breast cancer; Malignant neoplasm of left breast in female, estrogen receptor positive, unspecified site of breast Social History Tobacco Use Types Packs/Day Years Used Date Smoking Tobacco: Never Passive Smoke Exposure: Never Smokeless Tobacco: Never Alcohol Use Standard Drinks/Week Comments Not Currently 0 (1 standard drink = 0.6 oz pur e alcohol) PHQ-2 Answer Date Recorded Patient Health Questionnaire-2 Score 6 10/24/2024 PHQ-9 Answer Date Recorded Patient Health Questionnaire-9 Score 14 10/24/2024 Comments No Sex and Gender Information Value Date Recorded Sex Assigned at Not on file Legal Sex Female 4:24 PM EDT Gender Identity Not on file Sexual Orientation Not on file documented as of this encounter Last Filed Vital Signs Vital Sign Reading Time Taken Comments Blood Pressure 147/96 10/24/2024 8:39 AM EDT Pulse 62 10/24/2024 8:39 AM EDT Temperature 36.7 C (98.1 F) 10/24/2024 8:39 AM EDT Respiratory Rate 17 10/24/2024 8:39 AM EDT Oxygen Saturation 96% 10/24/2024 8:39 AM EDT Inhaled Oxygen Concentration - - Weight 104 kg (229 lb 15 oz) 10/24/2024 8:39 AM EDT Height 167.6 cm (5' 6 ) 10/24/2024 8:39 AM EDT Body Mass Index 37.11 10/24/2024 8:39 AM EDT documented in this encounter Functional Status * Over the past 2 weeks, how often have you been bothered by any of the following problems? Question Answer Date of Assessment Author Little interest or pleasure in doing things Nearly every day 10/24/2024 8:37 AM EDT Samples, Crystal R Feeling down, depressed, or hopeless Nearly every day 10/24/2024 8:37 AM EDT Samples, Crystal R Patient Health Questionnaire-2 Score 6 10/24/2024 8:37 AM EDT Samples, Fatoumata l R * Question Answer Date of Assessment Author Trouble falling or staying asleep, or sleeping too much More than half the days 10/24/2024 8:37 AM EDT Samples, Crystal R Feeling tired or having little energy Nearly every day 10/24/2024 8:37 AM EDT Samples, Crystal R Poor appetite or overeating Not at all 10/24/2024 8:37 AM EDT Samples, Crystal R Feeling bad about yourself - or that you are a failure or have let yourself or your family down Nearly every day 10/24/2024 8:37 AM EDT Samples, Crystal R Trouble concentrating on things, such as reading the newspaper or watching television Not at all 10/24/2024 8:37 AM EDT Samples, Crystal R Moving or speaking so slowly that other people could have noticed? Or the opposite - being so fidgety or restless that you have been moving around a lot more than usual. Not at all 10/24/2024 8:37 AM EDT Samples, Crystal R Thoughts that you would be better off or hurting yourself in some way Not at all 10/24/2024 8:37 AM EDT Samples, Crystal R Patient Health Questionnaire-9 Score 14 10/24/2024 8:37 AM EDT Samples, Fatoumata l R * If you checked off any problems on this questionnaire so far, Question Answer Date of Assessment Author How difficult have these problems made it for you to do your work, take care of things at home, or get along with other people? Not difficult at all 10/24/2024 8:37 AM EDT Samples, Crystal R documented as of this encounter Miscellaneous Notes * Progress Notes - Bo Maravilla MD - 10/24/2024 8:30 AM EDT [facility] New Patient Consultation This is the first [facility] visit for this 59 y.o. female referred by Fani Ko APRN for left self-detected invasive lobular carcinoma. History of Present Illness Zoila Espinoza is a 59 y.o. female presenting after finding a palpable left breast mass. A bilateraldiagnostic mammogram was then performed on 08/31/2024, and this demonstrated a lobulated 1.8 cm mass with associated architectural distortion w/o suspicious findings in the right breast. A left breast US was also performed on 09/14/2024 showing a 2.1 x 1.4 x 2.2 cm mass at 4 o'clock 5 cm from the nipple at the palpable area of concern. Multiple other findings were identified, including one deep to the main mass measuring 2.0 x 1.3 x 1.6 cm correlating to the nodular appearing area on mammography. There were also three indistinct hypoechoic masses measuring under 1 cm between 1 and 2 o clock 5to 7 cm from the nipple. There was no axillary adenopathy. U/S guided biopsy was recommended for the palpable mass and the largest of the additional masses. This was performed on . The larger palpable mass was consistent with invasive lobular carcinoma G1 ER/DC+ and the additional cores also showed invasive lobular carcinoma G1 ER/DC+. She denies breast pain, skin or nipple changes, and nipple discharge. She also denies unintentional weight loss (deliberately losing weight on GLP1), fatigue, or new back pain, neck pain, or headaches. She presents today for further evaluation and management. She does note that the palpable mass seems larger and more tender since undergoing biopsy. Health Maintenance Colonoscopy: within last 10 years ASSISTANT MANAGER QUALITY MANAGEMENT Exam: no longer needed, prior hysterectomy including cervix DEXA: not performed Review of Systems: Review of Systems Constitutional: Negative. Negative for activity change, appetite change, fatigue, fever and unexpected weight change. HENT: Negative. Negative for hearing loss, sore throat, trouble swallowing and voice change. Eyes: Negative. Negative for pain and visual disturbance. Respiratory: Negative. Negative for cough, chest tightness and shortness of breath. Cardiovascular: Negative. Negative for chest pain, palpitations and leg swelling. Gastrointestinal: Negative. Negative for abdominal pain, blood in stool, nausea and vomiting. Endocrine: Negative. Genitourinary: Negative. Negative for difficulty urinating, dysuria and frequency. Musculoskeletal: Negative. Negative for arthralgias, back pain, myalgias and neck pain. Skin: Negative for color change and wound. Palpable left breast mass Allergic/Immunologic: Negative. Neurological: Negative. Negative for dizziness, speech difficulty, weakness and headaches. Hematological: Negative. Psychiatric/Behavioral: Negative for agitation and confusion. The patient is nervous/anxious. All other systems reviewed and are negative. Past Medical History Medical History[1] Past Surgical History Surgical History[2] Social History Patient reports that she has never smoked. She has never been exposed to tobacco smoke. She has never used smokeless tobacco. She reports that she does not currently use alcohol. She reports that shedoes not currently use drugs. Support person: significant other of 18 years, Avi Housing: stable housing, lives in [place] Transportation: readily available Family History Family History[3] Obstetric and Gynecologic History -Menarche: 12 -LMP: 1996 -OCP hx: yes, 7 years total, no longer -G1@: 24 - -Breast feeding (m): no -Infertility treatments: no -Menopause: yes -HRT: no -Hyst/Ooph: yes, hysterectomy -Previous Bx: yes No LMP recorded. Patient has had a hysterectomy. Current Medications Medications Ordered Prior to Encounter[4] Allergies Allergies[5] PHYSICAL EXAMINATION ECOG Performance Status: 0: Fully active, able to carry on all pre-disease performance without restriction Vital Signs: Visit Vitals BP (!) 147/96 (BP Location: Right arm, Patient Position: Sitting, BP Cuff Size: Adult) Pulse 62 Temp 36.7 ??C (98.1 ??F) (Oral) Resp 17 Ht 1.676 m (5' 6 ) Wt 104 kg (229 lb 15 oz) SpO2 96% BMI 37.11 kg/m?? OB Status Hysterectomy Smoking Status Never BSA 2.2 m?? General: The patient is a well-developed individual who appears the stated age, the patient's speech pattern and movements are normal, and affect is appropriate. Head: The head is normocephalic. Neck: The neck is supple, the thyroid is not enlarged, there are no palpable masses, and the trachea is in the midline. Lymphatics: The supraclavicular, submental, and cervical regions are free of significant lymphadenopathy. Small, palpable area in the left axilla, representing possible lymph node. Chest: The chest expands symmetrically and the AP diameter appears normal. Heart: The rhythm is regular. Appears well perfused. Right Breast: The skin, nipple, and areola appear normal, there is no skin dimpling with movement of the pectoralis, there is no nipple retraction, no nipple discharge can be elicited, the parenchymais mildly nodular, there are no dominant masses, and the axillary tail is normal. Left Breast: The skin, nipple, and areola appear normal, there is no skin dimpling with movement ofthe pectoralis, there is no nipple retraction, no nipple discharge can be elicited, the parenchyma is mildly nodular, and the axillary tail is normal. There is a firm, palpable, mobile mass approx 2-3 cm in size at the 5 o'clock position, approx 3cfn. There is mild skin tethering inferior to the areola. Abdomen: The abdomen is soft, flat and non-tender. Skin: The skin appears normal and there are no suspicious rashes or lesions. Extremities: The extremities are without deformity, cyanosis, and edema. IMAGING: Imaging has been reviewed here by our radiologists; we have personally reviewed these images/imaging studies. Mammography Last 18 Months: Bilateral diagnostic mammography on 08/31/2024 showing left lobulated 1.8 cm mass with associated architectural distortion w/o suspicious findings in the right breast Outside Imaging Review: Left breast US was also performed on 09/14/2024 showing a 2.1 x 1.4 x 2.2 cm mass at 4 o'clock 5 cmfrom the nipple at the palpable area of concern. Multiple other findings were identified, includingone deep to the main mass measuring 2.0 x 1.3 x 1.6 cm correlating to the nodular appearing area onmammography. There were also three indistinct hypoechoic masses measuring under 1 cm between 1 and 2 o clock 5 to 7 cm from the nipple. There was no axillary adenopathy. All Other Imaging: No results found. PATHOLOGY: Pathology has been reviewed here. Final Diagnosis (no units) Date/Time Value 10/17/2024 1110 Outside slides Date of collection: 10/02/24 A Left breast (2:00 / 7 cfn), needle-core/mammotome biopsy: - Invasive lobular carcinoma, grade 1 - Lobular carcinoma in situ B Left breast (4-5:00), needle-core biopsy: - Invasive lobular carcinoma, grade 1 - Lobular carcinoma in situ Comment (no units) Date/Time Value 10/17/2024 1110 Biomarkers (as reported from referring laboratory) (not reviewed) A and B ER positive DC positive Her/sarah negative I have personally reviewed the pathology report. CARE TEAM Primary Care Physician: Fani Ko APRN Plastic and Reconstructive Surgery: referral pending Medical Oncology: Not assigned Radiation Oncology: Not assigned ASSESSMENT: Zoila Espinoza is a 59 y.o. female who was referred by Fani Ko APRN for left self-detected invasive lobular carcinoma. She has evidence of multifocal invasive lobular carcinoma ofthe left breast. AJCC (8th Edition) Clinical Stage: Cancer Staging Invasive lobular carcinoma of breast in female Staging form: Breast, AJCC 8th Edition - Clinical stage from 10/24/2024: Stage IB (cT2, cN0, cM0, G1, ER+, DC+, HER2-) - Unsigned Histopathologic type: Lobular carcinoma, NOS Stage prefix: Initial diagnosis Method of lymph node assessment: Clinical Histologic grading system: 3 grade system DISCUSSION: Zoila and I reviewed her situation in detail including her clinical exam findings, imaging and pathology reports. We began by discussing the natural history of breast cancer, and the rationale for both locoregional and systemic therapy, which is multi-step and multidisciplinary. We then discussed management options. It was advised that with the currently known information, surgical options include breast conservation (consisting of partial mastectomy and subsequent breast irradiation) versus total mastectomy with or without reconstruction. The details of each were described, including the reasons why one might be chosen over the other. The lack of a survival difference and the risk of local recurrence with both were discussed. Given that she has multifocal invasive lobular carcinoma, we recommended undergoing mastectomy rather than breast conserving therapy. She expressed interest in mastectomy, and the remainder of the discussion was dedicated to this. Wediscussed that while an attempt is made to remove all visible breast tissue, some may be left behind, and thus there remains a risk for recurrence even after a mastectomy. The rationale behind removal of the nipple and areola complex was discussed, and this led to a conversation of the need to leave behind breast tissue beneath the nipple to preserve a blood supply during a nipple-sparing mastectomy was discussed in detail. We also discussed that post-mastectomy breast reconstruction can be performed, started as part of the same procedure with tissue manager clinical informatics placement pending adequate flap pe rfusion. We briefly reviewed the options of aesthetic flat closure, and reconstruction with implantor autologous techniques. Based on the tumor size and proximity to the nipple, we currently believeshe not a candidate for nipple- sparing mastectomy. Finally, we reviewed the risks of the procedure,which include but are not limited to, bleeding, infection, seroma, scar formation, cosmetic deformity, and sensory changes. She expressed interest in bilateral skin sparing mastectomy. Given this, wewill refer her to plastic surgery to discuss reconstruction options to further aid in her decision making regarding surgery. Management of the axilla was also discussed. The use of sentinel lymphadenectomy for axillary staging was reviewed, which would be performed using lymphatic mapping with blue dye and radionucleotide isotope. It was explained that in certain circumstances further axillary surgery may be required, a determination that would be made based upon pathology from surgery. We discussed the possibility of a false negative result if intraoperative analysis of lymph nodes is performed. We also reviewed therisks of axillary surgery, which include but are not limited to bleeding, infection, seroma, altered sensation of the axilla and/or upper arm, injury to surrounding neurovascular structures, blue dye allergic reaction, and lymphedema. Considering the questionable left axillary lymph node on exam, will also order a left axillary ultrasound to re-evaluate her axilla. We can proceed with biopsy if indicated and we discussed how these findings would alter axillary management. We discussed that the vast majority of breast cancers are not related to an inherited gene, but that for many patients, especially those with a family history of breast or ovarian cancer, genetic testing is valuable. Given that Zoila does not meet NCCN criteria for genetic testing, we will not refer her to our Risk Assessment Program to discuss genetic testing. We then discussed the potential role of chemotherapy, endocrine therapy and radiation based on the results of surgical pathology. It was advised that given the ER+ subtype of disease, she will certainly require adjuvant endocrine therapy, and may require adjuvant chemotherapy which is a determination that will be made based upon information obtained from surgical pathology and possible use of additional tests such as Oncotype. Appropriate consultation with medical oncology and radiation oncology will be made postoperatively to complete her adjuvant therapy plan. This will be discussed furtherat subsequent appointments. Finally, we discussed lifestyle modifications that Zoila can take to help in her treatment and overall health. Specifically, we discussed eating a balanced, heart-healthy diet, engaging in regular physical activity, and getting plenty of sleep. She will follow up with us in clinic in 2-3 weeks to further discuss surgery. PLAN: - left axillary U/S; will biopsy if abnormal - plastics consultation - return to clinic in 2-3 weeks The patient expressed understanding of the treatment plan. All questions were answered to her apparent satisfaction. She was encouraged to contact the office if any questions or concerns arise. Bo Maravilla MD PGY-[address] Evonne Martinez MD Roof Bolting Coal Miner of Surgical Oncology [facility] I spent 60 minutes on this encounter, including preparing to see the patient, which involved review/interpretation of diagnostics and reports; obtaining and/or reviewing separately obtained history; performing appropriate physical exam; ordering/scheduling medications, tests or procedures; communicating findings, discussing diagnosis, prognosis, and treatment plans and counseling/educating the patient, family and/or caregiver; documentation in EMR; and care coordination. [1] Past Medical History: Diagnosis Date Diabetes mellitus (CMS/HCC) Disease of thyroid gland Hyperlipidemia Hypertension [2] Past Surgical History: Procedure Laterality Date BREAST BIOPSY CARPAL TUNNEL RELEASE Bilateral SECTION, CLASSIC DENTAL IMPLANT FOOT SURGERY Left HYSTERECTOMY KNEE SURGERY Left RHINOPLASTY ROTATOR CUFF REPAIR Right TONSILLECTOMY [3] Family History Problem Relation Name Age of Onset Prostate cancer Father Colon cancer Father's Sister Lung cancer Father's Sister Colon cancer Cousin [4] Current Outpatient Medications on File Prior to Visit Medication Sig Dispense Refill Blood Glucose Monitoring Suppl (ONE TOUCH ULTRA 2) w/Device kit device kit daily. use as directed DULoxetine (Cymbalta) [address] capsule Take 1 capsule by mouth daily. hydroCHLOROthiazide (HYDRODiuril) 50 MG tablet take 1 tablet by mouth daily in the morning HYDROcodone-acetaminophen (Christopher) 5-325 MG tablet Take 1 tablet by mouth every 6 (six) hours. ibuprofen 800 MG tablet TAKE 1 TABLET BY MOUTH EVERY 8 HOURS WITH FOOD OR MILK FOR 14 DAYS NEEDED levothyroxine (Synthroid, Levoxyl) 88 MCG tablet Take 1 tablet by mouth daily. metFORMIN XR (Glucophage-XR) 750 MG 24 hr tablet take 1 tablet by mouth every day with the evening meal nadolol (Corgard) 40 MG tablet Take 1 tablet by mouth daily. [employer] Ultra Test test strip USE DIRECTED IN VITRO ONCE A DAY Ozempic, 0.25 or 0.5 MG/DOSE, 2 MG/3ML solution pen-injector INJECT 0.25 MG UNDER THE SKIN ONCE WEEKLY simvastatin (Zocor) 80 MG tablet Take 1 tablet by mouth every evening. zolpidem (Ambien) 10 MG tablet Take 1 tablet by mouth daily. No current facility-administered medications on file prior to visit. [5] Allergies Allergen Reactions Penicillins Hives Cosigned by Evonne Martinez MD at 10/24/2024 10:26 AM EDT Associated attestation - Evonne Martinez MD - 10/24/2024 10:26 AM EDT Images from the original note were not included. Attending Attestation: I personally saw and evaluated the patient with the resident. I attest to being involved in providing substantive time in patient care. I discussed the case with them and agree with the findings as documented. The discussion and plan reflect my edits and medical decision making. Dr. Evonne Martinez MD Roof Bolting Coal Miner of Surgical Oncology [facility] documented in this encounter Plan of Treatment Upcoming Encounters Date Type Department Care Team (Late st Contact Info) Description 12/27/2024 8:00 AM EDT Hospital Encounter [facility] [address] [place] [id number] Evonne Martinez MD [address] Krys Scott [facility] [address] [place] [address] 12/27/2024 8:00 AM EDT - 12/27/2024 2:15 PM EDT Surgery [facility] [address] [place] [address] Evonne Martinez MD [address] Krys Scott [facility] [address] [place] [address] Bilateral mastectomy flat closure [99191 (CPT )] 01/09/2025 2:00 PM EDT Office Visit [facility] [address] [place] [address] Evonne Martinez MD [address] Krys Scott [address] [address] Scheduled Procedures Name Priority Associated Diagnoses Date/Ti me MASTECTOMY, BILATERAL Invasive lobular carcinoma of breast in female 12/27/2024 8:00 AM EDT LYMPHADENECTOMY, AXILLARY Invasive lobular carcinoma of breast in female 12/27/2024 8:00 AM EDT documented as of this encounter Visit Diagnoses Diagnosis Invasive lobular carcinoma of breast in female- Primary Malignant neoplasm of left breast in female, estrogen receptor positive, unspecified site of breast Invasive lobular carcinoma of breast in female documented in this encounter Additional Health Concerns Assessment Noted Time PHQ-9 Depression Total Score: 14 025 8:37 AM EDT A fall risk assessment has been complete d for the patient 10/24/2024 8:37 AM EDT documented as of this encounter Care Teams Blunger Loader Relationship Specialty Start Date End Date Fani Ko APRN [address] [place] [address] PCP - General 10/24/24 documented as of this encounter
--- OUTSIDE RECORDS SUMMARY | 2024-10-24 10:00 | XMS_ITS | Encounter Summary ---
Author Organization [facility] Address [address] [id number] Care Team Providers Care Certified Ophthalmic Assistant Name Role Phone Fani Ko APRN Primary Care Provider [phone] Reason for Visit * Imaging (Routine) - Closed Specialty Diagnoses / Procedures Referred By Adriana nogueira Referred To Contact Radiology Diagnoses Malignant neoplasm of left breast in female, estrogen receptor positive, unspecified site of breast Procedures US Axilla Left Evonne Martinez MD [address] [place] [address] Phone: tel: fax: Referral ID Status Reason Start Date Expiration Date Visits Re quested Visits Authorized [id number] Closed 10/24/2024 04/25/2026 1 1 Encounter Details Date Type Department Care Team (Latest Contact Info) Description 10/24/2024 10:00 AM EDT - 10/24/2024 10:58 AM EDT Hospital [facility] [place] [address] [address] [address] Malignant neoplasm of left breast in female, estrogen receptor positive, unspecified site of breast Discharge Disposition: Home or Self Care Social History Tobacco Use Types Packs/Day Years [...] on file documented as of this encounter Functional Status * Over the [...] Crystal R documented as of this encounter Medications at Time of Discharge Blood Glucose Monitoring Suppl (ONE TOUCH ULTRA 2) w/Device kit device kit daily. use as directed 12/09/2023 DULoxetine (Cymbalta) [address] capsule Take 1 capsule by mouth daily. 10/16/2024 hydroCHLOROthiazi de (HYDRODiuril) 50 MG tablet take 1 tablet by mouth daily in the morning 09/20/2024 HYDROcodone-aceta minophen ([place]) 5-325 MG tablet Take 1 tablet by mouth every 6 hours. 04/12/2024 ibuprofen 800 MG tablet TAKE 1 TABLET BY MOUTH EVERY 8 HOURS WITH FOOD OR MILK FOR 14 DAYS NEEDED 10/16/2024 levothyroxine (Synthroid, Levoxyl) 88 MCG tablet Take 1 tablet by mouth daily. 07/20/2024 metFORMIN XR (Glucophage-XR) 750 MG 24 hr tablet daily. 10/16/2024 nadolol (Corgard) 40 MG tablet Take 1 tablet by mouth daily. 10/16/2024 [employer] Ultra Test test strip USE DIRECTED IN VITRO ONCE A DAY 07/18/2024 Ozempic, 0.25 or 0.5 MG/DOSE, 2 MG/3ML solution pen-injector INJECT 0.25 MG UNDER THE SKIN ONCE WEEKLY 10/05/2024 simvastatin (Zocor) 80 MG tablet Take 1 tablet by mouth every evening. 08/29/2024 zolpidem (Ambien) 10 MG tablet Take 1 tablet by mouth at night as needed. 08/21/2024 documented as of this encounter Plan of Treatment Upcoming Encounters Date Type Department Care Team (Late st Contact Info) Description 12/27/2024 8:00 AM EDT Hospital Encounter [facility] [address] [place] [address] Evonne Martinez MD [address] [facility] Krys Scott [facility] [address] [place] [address] 12/27/2024 8:00 AM EDT - 12/27/2024 2:15 PM EDT Surgery [facility] [address] [place] [address] Evonne Martinez MD 800 [facility] [address] [place] [address] Bilateral mastectomy flat closure [08197 (CPT )] 01/09/2025 2:00 PM EDT Office Visit [facility] [address] [place] [address] Evonne Martinez MD [address] [place] [address] Scheduled Procedures Name Priority Associated Diagnoses Date/Ti me MASTECTOMY, BILATERAL Invasive lobular carcinoma of breast in female 12/27/2024 8:00 AM EDT LYMPHADENECTOMY, AXILLARY Invasive lobular carcinoma of breast in female 12/27/2024 8:00 AM EDT documented as of this encounter Procedures Procedure Name Priority Date/Time Associated Diagnosis Comments US AXILLA LEFT Routine 10/24/2024 10:40 AM EDT Malignant neoplasm of left breast in female, estrogen receptor positive, unspecified site of breast documented in this encounter Results * (ABNORMAL) US Axilla Left (10/24/2024 10:40 AM EDT) Anatomical Region Laterality Modality Breast Left Ultrasound Impressions 10/24/2024 10:49 AM EDT BI-RADS: BI-RADS 4, Suspicious finding. RECOMMENDATIONS: Fine Needle Aspiration of lymph node 2 or 4 is recommended CRITICAL RESULT: No. COMMUNICATION: The results and recommendations were discussed with the patient and a printed lay language version of the imaging report was given to the patient at the time of the visit. Drafted by Kendra Joiner MD on 10/24/2024 10:46 AM Final report signed by Kendra Joiner MD on 10/24/2024 10:49 AM Narrative 10/24/2024 10:49 AM EDT CLINICAL INDICATION: Recently diagnosed left breast malignancy TECHNIQUE: Multiplanar, ash scale directed ultrasound of the left axilla with limited Doppler vascular ultrasound was performed. Elastography was not performed. COMPARISON: Comparison is made with outside facility ultrasound dated 09/13/2024 FINDINGS: Left Axilla Findings: There are 4 mildly abnormal lymph nodes which demonstrate asymmetric cortical thickening, labeled #2, 4, 5, and 6. Lymph nodes number 1 and 3 demonstrate normal morphology. Procedure Note Kendra Joiner MD - 10/24/2024 CLINICAL INDICATION: Recently diagnosed left breast malignancy TECHNIQUE: Multiplanar, ash scale directed ultrasound of the left axilla withlimited Doppler vascular ultrasound was performed. Elastography was notperformed. COMPARISON: Comparison is made with outside facility ultrasound dated 09/13/2024 FINDINGS: Left Axilla Findings: There are 4 mildly abnormal lymph nodes whichdemonstrate asymmetric cortical thickening, labeled #2, 4, 5, and 6. Lymphnodes number 1 and 3 demonstrate normal morphology. IMPRESSION: BI-RADS: BI-RADS 4, Suspicious finding. RECOMMENDATIONS: Fine Needle Aspiration of lymph node 2 or 4 isrecommended CRITICAL RESULT: No. COMMUNICATION: The results and recommendations were discussed with the patient and aprinted lay language version of the imaging report was given to thepatient at the time of the visit. Drafted by Kendra Joiner MD on 10/24/2024 10:46 AM Final report signed by Kendra Joiner MD on 10/24/2024 10:49 AM Evonne Martinez MD IMG BI PROCEDURES Final Result documented in this encounter Visit Diagnoses Diagnosis Malignant neoplasm of left breast in female, estrogen receptor positive, unspecified site of breast Invasive lobular carcinoma of breast in female documented in this encounter Additional Health Concerns Assessment Noted Time PHQ-9 Depression Total Score: 14 025 8:37 AM EDT A fall risk assessment has been complete d for the patient 10/24/2024 8:37 AM EDT documented as of this encounter Care Teams Certified Ophthalmic Assistant Relationship Specialty Start Date End Date Fani Ko APRN [address] [place] [address] PCP - General 10/24/24 documented as of this encounter
--- OUTSIDE RECORDS SUMMARY | 2024-10-24 10:59 | XMS_ITS | Encounter Summary ---
Author Organization [facility] Address [address] [id number] Care Team Providers Care Supervisor Industrial Arts Education Name Role Phone Fani Ko APRN Primary Care Provider [phone] Encounter Details Date Type Department Care Team (Latest Contact Info) Description 10/24/2024 10:59 AM EDT - 10/24/2024 11:59 PM EDT Hospital Encounter [facility] [address] [address] Abnormal finding on breast imaging Discharge Disposition: Home or Self Care Social [...] Sign Reading Time Taken Comments Blood Pressure 131/83 10/24/2024 11:38 AM EDT Pulse 68 10/24/2024 11:38 AM EDT Temperature - - Respiratory Rate - - Oxygen Saturation 98% 10/24/2024 11:38 AM EDT Inhaled Oxygen Concentration - - Weight - - Height - - Body Mass Index - - documented in this encounter Functional Status * [...] 6 10/24/2024 8:37 AM EDT Samples, Fatoumata leiva R * Question Answer Date of Assessment [...] daily in the morning 09/20/2024 HYDROcodone-aceta minophen (Gary) 5-325 MG tablet Take 1 tablet by [...] Take 1 tablet by mouth daily. 10/16/2024 [employer] Ultra Test test strip USE DIRECTED IN VITRO ONCE A DAY 07/18/2024 Ozempic, 0.25 or 0.5 MG/DOSE, 2 MG/3ML solution pen-injector INJECT 0.25 MG UNDER THE SKIN ONCE WEEKLY 10/05/2024 simvastatin (Zocor) 80 MG tablet Take 1 tablet by mouth every evening. 08/29/2024 zolpidem (Ambien) 10 MG tablet Take 1 tablet by mouth at night as needed. 08/21/2024 documented as of this encounter Miscellaneous Notes * Post-Procedure Note - Ivis Almanza RN - 10/24/2024 11:00 AM EDT Images from the original note were not included. Signed Patient: Zoila Espinoza Date and Time: October 24, 2024 at 1220 Site: left axilla (with clip placement) Procedure: us guided FNA How long was pressure applied: 2 min Biopsy Site Check: soft, hemostasis achieved Procedure Tolerance: tearful, but tolerated procedure well Post Pain Assessment: 0 Bleeding or Hematoma: absent Additional Pressure Applied: n/a Post Procedure Care: dermabond to incision, ice applied, extra ice provided Radiologist that spoke with the patient: Dr Joiner Discharged mode: ambulatory; Dr Joiner did not want post iesha following clip placement Discharge Instructions: re-enforced prior to dc, pt states understanding Entered By: Miya White, RN * Pre-Procedure Note - Ivis Almanza RN - 10/24/2024 11:00 AM EDT Patient: Zoila Espinoza Date and Time: October 24, 2024 at 1220 Site: left axilla Procedure: us guided FNA How long was pressure applied: 2 min Biopsy Site Check: soft, hemostasis achieved Procedure Tolerance: tolerated well Post Pain Assessment: 0 Bleeding or Hematoma: absent Additional Pressure Applied: n/a Post Procedure Care: bandaid to incision, ice applied, extra ice provided Radiologist that spoke with the patient: Dr Joiner Discharged mode: ambulatory Discharge Instructions: re-enforced prior to dc, pt states understanding Entered By: Miya Almanza RN * Pre-Procedure Note - Ivis Almanza RN - 10/24/2024 11:00 AM EDT Patient: Zoila Espinoza Date and Time: October 24, 2024 at 11:40 AM Procedure Consent: obtained, Dr Joiner Patient Pulse: 68 Patient Pain Level: 0 Patient Allergies: PCN NSAIDS and Anti-coagulants: none O2 Sats Room Air: 98% Blood Pressure: 131/83 Discharge Instructions: provided, dc instructions provided, pt states understanding Timeout performed by the radiologist at the time of the procedure: completed, Dr Joiner Patient Medications (see chart and HQA form) Medical History (see chart and HQA form) Surgical History (see chart and HQA form) Entered by: Miya Almanza RN documented in this encounter Plan of Treatment Upcoming Encounters Date Type Department Care Team (Late st Contact Info) Description 12/27/2024 8:00 AM EDT Hospital [facility] [address] [place] [address] Evonne Martinez MD 800 [facility] Krys Scott [address] [address] 12/27/2024 8:00 AM EDT - 12/27/2024 2:15 PM EDT Surgery [facility] [address] [place] [address] Evonne Martinez MD [address] [place] [address] Bilateral mastectomy flat closure [26356 (CPT )] 01/09/2025 2:00 PM EDT Office Visit [facility] [address] [place] [address] Evonne Martinez MD [address] [place] [address] Scheduled Procedures Name Priority Associated Diagnoses Date/Ti me MASTECTOMY, BILATERAL Invasive lobular carcinoma of breast in female 12/27/2024 8:00 AM EDT LYMPHADENECTOMY, AXILLARY Invasive lobular carcinoma of breast in female 12/27/2024 8:00 AM EDT documented as of this encounter Procedures Procedure Name Priority Date/Time Associated Diagnosis Comments US GUIDED BREAST FINE NEEDLE ASPIRATION Routine 10/24/2024 12:20 PM EDT Abnormal finding on breast imaging FINE NEEDLE ASPIRATION - CYTOLOGY Routine 10/24/2024 12:20 PM EDT Abnormal finding on breast imaging documented in this encounter Results * US Guided Breast Fine Needle Aspiration (10/24/2024 12:20 PM EDT) Anatomical Region Laterality Modality Breast N/A Ultrasound Addenda Addendum by Kendra Joiner MD on 10/30/2024 12:44 PM EDT Addendum: ADDENDUM: Final Pathology: Target 1: A. LYMPH NODE, LEFT AXILLARY, ULTRASOUND GUIDED FINE NEEDLE ASPIRATION: - POSITIVE FOR MALIGNANCY, METASTATIC CARCINOMA MORPHOLOGICALLY COMPATIBLE WITH BREAST PRIMARY. Concordant: yes Recommendations: Medical/Surgical follow up Patient will be informed of the results and recommendations. The communication will be documented in the patient's chart at the [facility]. Drafted by Kendra Joiner MD on 10/30/2024 12:43 PM Final report signed by Kendra Joiner MD on 10/30/2024 12:44 PM Impressions 10/24/2024 2:32 PM EDT 1. Successful fine needle aspiration of the lymph node #4 in the left axilla and U shaped tissue marker placement 2. Cytologic findings will be correlated. An addendum will be issued when pathology results become available. PATHOLOGY ASSESSMENT: Waiting for pathology. PATHOLOGY RECOMMENDATION: Waiting for pathology. CRITICAL RESULT: No. COMMUNICATION: Per this written report. Drafted by Kendra Joiner MD on 10/24/2024 2:30 PM Final report signed by Kendra Joiner MD on 10/24/2024 2:32 PM Narrative 10/24/2024 2:32 PM EDT CLINICAL INDICATION: Recently diagnosed left breast cancer and enlarged left axillary lymph nodes. COMPARISON: Previous studies were reviewed. TECHNIQUE: Multiplanar, ash scale ultrasound with limited Doppler vascular ultrasound was performed in preparation for the biopsy. Ultrasound-guided FNA and tissue marker placement of the left axilla was performed. Procedure: Images from previous studies were reviewed. There is a 10 mm lymph node identified in the left axilla, labeled #4. Informed consent was obtained and placed upon the patient's medical record. The pre-procedure timeout was performed using two patient identifiers, confirming patient identity, and procedure to be performed. The correct side was marked. Using sterile technique, local anesthesia was achieved with 1% buffered lidocaine. Under ultrasound guidance, a 20 gauge needle was placed into the lymph node. 3 passes were performed. Cytopathology was present to collect the specimens and deemed it adequate. Given the suspicious results, a U shaped tissue marker was placed into the lymph node. Post-biopsy instructions were reviewed with the patient, and a copy was given to the patient. The patient left the department in stable condition. Preliminary Results: Suspicious FINDINGS: See Impression. Procedure Note Kendra Joiner MD - 10/30/2024 CLINICAL INDICATION: Recently diagnosed left breast cancer and enlarged left axillary lymphnodes. COMPARISON: Previous studies were reviewed. TECHNIQUE: Multiplanar, ash scale ultrasound with limited Doppler vascularultrasound was performed in preparation for the biopsy. Ultrasound-guidedFNA and tissue marker placement of the left axilla was performed. Procedure: Images from previous studies were reviewed. There is a 10 mm lymph nodeidentified in the left axilla, labeled #4. Informed consent was obtained and placed upon the patient's medicalrecord. The pre-procedure timeout was performed using two patientidentifiers, confirming patient identity, and procedure to be performed.The correct side was marked. Using sterile technique, local anesthesia was achieved with 1% bufferedlidocaine. Under ultrasound guidance, a 20 gauge needle was placed intothe lymph node. 3 passes were performed. Cytopathology was present to collect the specimens and deemed itadequate. Given the suspicious results, a U shaped tissue marker was placed into thelymph node. Post-biopsy instructions were reviewed with the patient, and a copy wasgiven to the patient. The patient left the department in stablecondition. Preliminary Results: Suspicious FINDINGS: See Impression. IMPRESSION: 1. Successful fine needle aspiration of the lymph node #4 in the leftaxilla and U shaped tissue marker placement 2. Cytologic findings will be correlated. An addendum will be issued whenpathology results become available. PATHOLOGY ASSESSMENT: Waiting for pathology. PATHOLOGY RECOMMENDATION: Waiting for pathology. CRITICAL RESULT: No. COMMUNICATION: Per this written report. Drafted by Kendra Joiner MD on 10/24/2024 2:30 PM Final report signed by Kendra Joiner MD on 10/24/2024 2:32 PM Evonne Martinez MD [facility] BI PROCEDURES Edited Result - Final * Fine needle aspiration (10/24/2024 12:20 PM EDT) Case Report Cytology Case: [id number] Authorizing Provider: Evonne Martinez MD Collected: 10/24/2024 1220 Ordering Location: [facility] Received: 10/24/2024 7832 Pathologist: Felicia Muniz MD Specimen: Lymph Node, Left Axilla, Fine Needle Aspiration, LYMPH NODE, LEFT AXILLARY, ULTRASOUND GUIDED FINE NEEDLE ASPIRATION 5:47 PM EDT [facility] Final Diagnosis A. LYMPH NODE, LEFT AXILLARY, ULTRASOUND GUIDED FINE NEEDLE ASPIRATION: - POSITIVE FOR MALIGNANCY, METASTATIC CARCINOMA MORPHOLOGICALLY COMPATIBLE WITH BREAST PRIMARY. 5 5:[address] [facility] at 1747 EDT Intradepartmental Consultation with Agreement Dr. Brandt Salmeron 5 5:[address] [facility] Immediate Evaluation FNA performed by: Dr. Joiner Number of sticks: 3 Immediate evaluation performed by: Dr. Muniz/LT/AR Evaluation episode # 1-3: Atypical. The immediate evaluation in this case was performed via telecytology by the attending physician listed above. 5 5:[address] [facility] Gross Description A. LYMPH NODE, LEFT AXILLARY, ULTRASOUND GUIDED FINE NEEDLE ASPIRATION 5 ml's cloudy needle rinse fluid processed as Thinprep for complete evaluation of sample. Received 3 diff quick slides and 3 pap slides. 5 5:[address] [facility] Note: A resident was involved in the service. I attest I examined the relevant preparations for the specimens and confirmed the diagnosis or interpretation. 5 5:[address] [facility] Clinical Information R92.8 - Abnormal finding on breast imaging [ICD-10-CM] 5 5:[address] [facility] Fine Needle Aspirate Structure of lymph node / Unknown 10/24/2024 12:20 PM EDT 10/24/2024 1:58 PM EDT us Evonne Martinez MD LAB CYTOLOGY ORDERABLES Final Re sult [facility] [address] [place] [address] documented in this encounter Visit Diagnoses Diagnosis Abnormal finding on breast imaging Invasive lobular carcinoma of breast in female documented in this encounter Additional Health Concerns Assessment Noted Time PHQ-9 Depression Total Score: 14 025 8:37 AM EDT A fall risk assessment has been complete d for the patient 10/24/2024 8:37 AM EDT documented as of this encounter Care Teams Supervisor [employer] Education Relationship Specialty Start Date End Date Fani Ko APRN [address] [place] [address] PCP - General 10/24/24 documented as of this encounter
--- OUTSIDE RECORDS SUMMARY | 2024-11-01 08:30 | XMS_ITS | Encounter Summary ---
Author Organization Healthcare Address [address] [place] [address] Care Team Providers Care Banding Machine Operator Name Role Phone Fani Ko APRN Primary Care Provider [phone] Encounter Details Date Type Department Care Team (Late st Contact Info) Description 11/01/2024 8:30 AM EDT Office Visit [facility] Plastic & Reconstructive Surgery [address] [place] [phone] Adalgisa Trinidad APRN, DNP [address] [facility] [address] [place] [phone] Encounter to discuss breast reconstruction (Primary Dx) Social History Tobacco Use Types Packs/Day Years [...] Sign Reading Time Taken Comments Blood Pressure 121/80 11/01/2024 8:25 AM EDT Pulse 69 11/01/2024 8:25 AM EDT Temperature - - Respiratory Rate - - Oxygen Saturation 95% 11/01/2024 8:25 AM EDT Inhaled Oxygen Concentration - - Weight 107 kg (235 lb 0.2 oz) 11/01/2024 8:25 AM EDT Height 167.6 cm (5' 6 ) 11/01/2024 8:25 AM EDT Body Mass Index 37.93 11/01/2024 8:25 AM EDT documented in this encounter Miscellaneous Notes * Miranda Tirnidad, Adalgisa Lowry, VARNISH DIPPER, DNP - 11/01/2024 3:15 PM EDT Images from the original note were not included. [id number] Gout Diet Gout is a painful condition caused by an excess of uric acid, a waste product made by the body. Uric acid forms crystals that collect in the joints. This brings on symptoms of joint pain and swelling, and is is called a gout attack. Often, medications and diet changes are combined to manage gout. Below are some guidelines for changing your diet to help you manage gout and prevent attacks. Your healthcare provider will help you determine the best eating plan for you. Eating to manage gout Eat Less of These Foods Eating too many foods containing purines may increase the levels of uric acid in your body. This increases your risk of a gout attack. Try to limit these foods and drinks that are high in purine: ?? Alcohol, such as beer and red wine (you may be told to avoid alcohol completely) ?? Certain fish, including anchovies, sardines, fish eggs, and silveira ?? Certain meats, such as red meat, hot dogs, luncheon meats, and turkey ?? Organ meats, such as liver, kidneys, and sweetbreads ?? Legumes, such as dried beans and peas ?? Mushrooms, spinach, asparagus, and cauliflower ?? High Fructose Corm Syrup Eat More of These Foods Some foods may be helpful for preventing gout attacks. Add some of these foods to your diet: ?? Dark berries, such as blueberries, blackberries, and cherries. These contain chemicals that may lower uric acid. ?? Tofu, a source of protein made from soy. Studies have shown that it may be a better choice than meat for people with gout. ?? [place] fatty acids. These are found in some fatty fish (such as salmon), certain oils (flax, olive, or nut), and nuts themselves. [place] fatty acids may help prevent inflammation due to gout. The following diet guidelines are recommended by the [employer] for people with gout Choose foods that are: ?? High in fiber: whole grains, fruits, and vegetables ?? Low in protein (limit animal protein to 4-6 ounces per day) ?? Low in fat (no more than 30% of calories from fat, with only 10% from animal fat) ?? Drink 8-10 (8 oz) glasses of water or cranberry juice daily. This helps your body get rid of uric acid. Follow up Follow up as advised by the doctor or our staff. Get medical attention right away if any of the following occur Return of gout symptoms, usually at night: ?? Severe pain, swelling, and heat in a joint, especially the base of the big toe ?? Affected joint is hard to move ?? Skin of the affected joint is purple or red ?? Fever of 100.4??F (38??C) or higher ?? Pain that is not controlled by prescribed medication ?? [id number] The [employer]. All rights reserved. This information is not intended as a substitute for professional medical care. Always follow your healthcare professional's instructions. This information has been modified by your health care provider with permission from the publisher. This information has been modified by your health care provider with permission from the publisher. * [facility] - Adalgisa Trinidad APRN, DNP - 11/01/2024 3:14 PM EDT Images from the original note were not included. [id number] Eating to Prevent Gout Gout is a painful form of arthritis caused by an excess of uric acid. This is a waste product made by the body. It builds up in the body and forms crystals that collect in the joints, causing a gout attack. Alcohol and certain foods can trigger a gout attack. Below are some guidelines for changing your diet to help you manage gout. Your healthcare provider or a dietitian can work with you to determine the best eating plan for you. You can learn which foods affect your gout more than others. Reactions to different foods can varyfrom person to person. Know that diet is only one part of managing gout. Take your medicines as prescribed and follow the other guidelines your healthcare provider has given you. Foods to limit Eating too many foods containing purines may increase the levels of uric acid in your body and increase your risk for a gout attack. It may be best to limit these high-purine foods: ?? Alcohol (beer, hard liquor, and red wine). You may be told to give up alcohol completely. ?? Certain fish (anchovies, sardines, fish roes, silveira, tuna, mussels, codfish, scallops, trout, and cyndy) ?? Certain meats (red meat, processed meat, means, turkey, wild game, and goose) ?? Sauces and gravies made with meat ?? Organ meats (such as liver, kidneys, sweetbreads, and tripe) ?? Yeast and yeast extract supplements Foods to try Some foods may be helpful for people with gout. You may want to try adding some of the following foods to your diet: ?? Ram/Ram Extract. Cherries and ram extract contain chemicals that may lower uric acid. ?? [place] fatty acids. These acids are found in fatty fish (such as salmon), certain oils (such as flax, olive, or nut oils), and nuts. They may help prevent inflammation due to gout. ?? Low-fat dairy. Low-fat milk or dairy foods may reduce uric acid levels. Last Reviewed Date: 2022 00:00:00 ?? [id number] [employer]. All rights reserved. This information is not intended as a substitute for professional medical care. Always follow your healthcare professional's instructions. * Progress Notes - Adalgisa Trinidad APRN, DNP - 11/01/2024 8:30 AM EDT PLASTIC SURGERY CONSULT NOTE Chief Complaint: Breast reconstruction evaluation Referring provider: Dr. Evonne Martinez Surgical Oncology History of Presenting Illness: Zoila Espinoza is a 59 y.o. female with PmHx of left breast cancer who presents today in consultation for breast reconstruction. Patient palpated a mass of the left breast earlier this year. Subsequent imaging and biopsy showed two areas of invasive lobular carcinoma, grade 1 at 2oclock, 7cfn and 4-5:00 o'clock (ER+ NJ+ HER2-). Left axillary ultrasound and FNA performed showed metastatic carcinoma. Patient met with Dr. Martinez on 10/24/24 to discuss surgical options. Patient elected for bilateral mastectomy, right prophylactic. Patient denies any history of bleeding or clotting disorders. No blood thinner use. No history of miscarriages. The patient is a non-smoker. Patient has a history of diabetes. No recent A1C found. Patient states at her age, she isn't interested in preserving her breast mound. She feels comfortable with the idea of wearing a prosthesis in nice clothing. Her goal is get rid of the cancer as soonas possible and she does not want to undergo further surgery with risk of complication. Review of Systems: Review of Systems All other systems reviewed and are negative. Past Medical History: Medical History[1] Surgical History: Surgical History[2] Allergy: Allergies[3] Social History: Tobacco: Denies Alcohol: Denies Illicits: Denies Family History: Reviewed and non-contributory Objective: Vitals: 11/01/24 0825 BP: 121/80 Pulse: 69 SpO2: 95% Physical Examination: Physical Exam Constitutional: Appearance: Normal appearance. She is well-developed and normal weight. HENT: Head: Normocephalic and atraumatic. Right Ear: External ear normal. Left Ear: External ear normal. Nose: Nose normal. Mouth/Throat: Lips: [place]. Mouth: Mucous membranes are moist. Pharynx: Oropharynx is clear. Eyes: Conjunctiva/sclera: Conjunctivae normal. Pupils: Pupils are equal, round, and reactive to light. Neck: Vascular: No JVD. Cardiovascular: Rate and Rhythm: Normal rate and regular rhythm. Pulmonary: Effort: Pulmonary effort is normal. Breath sounds: Normal breath sounds. Chest: Breasts: Left: Mass present. Comments: Grade II ptosis Abdominal: General: Bowel sounds are normal. There is no distension. Palpations: Abdomen is soft. Tenderness: There is no abdominal tenderness. There is no guarding. Musculoskeletal: General: Normal range of motion. Cervical back: Neck supple. Right lower leg: No edema. Left lower leg: No edema. Skin: General: Skin is warm and dry. Coloration: Skin is not pale. Neurological: General: No focal deficit present. Mental Status: She is alert and oriented to person, place, and time. Imaging: All available imaging reviewed Assessment/Plan: Zoila Espinoza is a 59 y.o. female who presents today in consultation for breast reconstruction. We discussed immediate or delayed reconstruction and flat closure. We discussed with patient the two primary methods of reconstruction as implant based versus autologous tissue. The patient understands each option is a staged process. The patient understands breast reconstruction may include multiple surgeries to achieve desired breast volume and symmetry. With implant-based reconstruction, the patient understands that she would first undergo tissue drivability technician placement at the time of mastectomy or in a delayed fashion. The patient would then undergo expansion in clinic followed by a secondary procedure to place the permanent implants. We discussed therisks including mastectomy flap necrosis, pain, infection, delayed wound healing, implant exposure,rupture, capsular contracture, asymmetry, hematoma, and seroma. In reference to autologous tissue, we discussed we can take tissue from the back or more commonly the abdomen to reconstruct the breast. We briefly discussed abdominally based free flaps. Patient is not interested in abdominally based free flaps due to intraoperative and post operative risks. We discussed the possible need for revision surgeries including fat grafting, symmetry procedures, augmentation, shape corrections or nipple reconstruction if desired. We discussed revision with flatclosure including scar revision, excess skin removal, and fat grafting for better prosthesis wear. Shrimp Pond Laborer post-operative illustrations were shown to patient with expected scar placement. Educated patient on post operative pain management, surgical incision care, ALYCIA drain management, and activity restrictions post operatively. I outlined the pre-operative planning, intra-operative decision making, duration of the procedure, hospitalization, and expected recovery. We had a lengthy discussion with the patient today regarding upcoming plans for surgery. Patient is interested in bilateral mastectomy with flat closure. Will notify [facility] and Dr. Martinez. She is always welcome to clinic in the future to further discuss reconstruction. All questions were answered to the patient's satisfaction. Patient agreeable to plan of care. [1] Past Medical History: Diagnosis Date Diabetes mellitus (CMS/HCC) Disease of thyroid gland Hyperlipidemia Hypertension [2] Past Surgical History: Procedure Laterality Date BREAST BIOPSY CARPAL TUNNEL RELEASE Bilateral SECTION, CLASSIC DENTAL IMPLANT FOOT SURGERY Left HYSTERECTOMY KNEE SURGERY Left RHINOPLASTY ROTATOR CUFF REPAIR Right TONSILLECTOMY [3] Allergies Allergen Reactions Penicillins Hives documented in this encounter Plan of Treatment Upcoming Encounters Date Type Department Care Team ([facility] st Contact Info) Description 12/27/2024 8:00 AM EDT Hospital Encounter [facility] Advanced Surgery [address] [place] [phone] Evonne Martinez MD [address] [facility] [address] [place] [address] 12/27/2024 8:00 AM EDT - 12/27/2024 2:15 PM EDT Surgery [facility] [address] [place] [address] Evonne Martinez MD [address] [facility] [address] [place] [address] Bilateral mastectomy flat closure [94273 (CPT )] 01/09/2025 2:00 PM EDT Office Visit [facility] Breast [facility] [address] [facility] [place] [address] Evonne Martinez MD [address] [facility] [address] [place] [address] Scheduled Procedures Name Priority Associated Diagnoses Date/Ti me MASTECTOMY, BILATERAL Invasive lobular carcinoma of breast in female 12/27/2024 8:00 AM EDT LYMPHADENECTOMY, AXILLARY Invasive lobular carcinoma of breast in female 12/27/2024 8:00 AM EDT documented as of this encounter Visit Diagnoses Diagnosis Encounter to discuss breast reconstruction- Primary Invasive lobular carcinoma of breast in female documented in this encounter Additional Health Concerns Assessment Noted Time PHQ-9 Depression Total Score: 14 025 8:37 AM EDT A fall risk assessment has been complete d for the patient 10/24/2024 8:37 AM EDT A Body Mass Index follow-up plan has been documented for the patient 11/01/2024 9:05 AM EDT documented as of this encounter Care Teams Banding Machine Operator Relationship Specialty Start Date End Date Fani Ko, VARNISH DIPPER [facility] [place] [address] PCP - General 10/24/24 documented as of this encounter
--- OUTSIDE RECORDS SUMMARY | 2024-11-14 11:30 | XMS_ITS | Encounter Summary ---
Author Organization Healthcare Address [address] [place] [id number] Care Team Providers Care Blacktop Spreader Name Role Phone Fani Ko APRN Primary Care Provider [phone] Encounter Details Date Type Department Care Team (Late st Contact Info) Description 11/14/2024 11:30 AM EDT Office Visit [facility] [address] [facility] [place] [address] Evonne Martinez MD [address] [facility] [address] [place] [address] Invasive lobular carcinoma of breast in female (Primary Dx) Social History Tobacco Use Types Packs/Day Years Used Date Smoking Tobacco: Never Passive Smoke Exposure: Never Smokeless Tobacco: Never Tobacco Cessation:Counseling Given: Not Answered Alcohol Use Standard Drinks/Week Comments Not Currently [...] Sign Reading Time Taken Comments Blood Pressure 125/80 11/14/2024 11:29 AM EDT Pulse 51 11/14/2024 11:29 AM EDT Temperature 36.7 C (98 F) 11/14/2024 11:29 AM EDT Respiratory Rate 17 11/14/2024 11:29 AM EDT Oxygen Saturation 95% 11/14/2024 11:29 AM EDT Inhaled Oxygen Concentration - - Weight 105 kg (232 lb 9.4 oz) 11/14/2024 11:29 A M EDT Height 167.6 cm (5' 6 ) 11/14/2024 11:29 AM EDT Body Mass Index 37.54 11/14/2024 11:29 AM EDT documented in this encounter Miscellaneous Notes * Miranda Quevedo - Hedy Nunez RN - 11/14/2024 12:41 PM EDT Images from the original note were not included. [address]279 Exercises After Breast Surgery: Wall Climb, Chicken Wing As you recover from breast surgery, your healthcare provider will tell you when it's safe to start exercising, what kind of exercises you should do, and how much you should do. Your goal is to regainnormal arm and shoulder range of motion and use of your arm. The exercises will also help to improve your strength and prevent severe scarring that will keep you from moving normally (scar contracture). For your safety, use this handout only as directed by your healthcare provider or physical therapist. These are two exercises that may be suggested. Be sure to take deep breaths as you do each exercise. Talk with your surgeon and healthcare team about other exercises that might be right for you. Wall climb Follow these steps: ?? Stand and face a wall, with your toes 4 to 8 inches from it. ?? Place your forearms against the wall, hands at eye level. ?? Walk your hands up the wall, keeping palms parallel. Stop if you feel pulling or pain. ?? Hold the stretch for 15 to 20 seconds. Move your hands back down the wall. ?? Repeat 10 times. ?? As you get better, stand closer to the wall. Chicken wing Follow these steps: ?? With elbows straight, clasp your fingers in front of you. Raise your arms slowly over your head. ?? Keeping your fingers clasped, put your hands behind your neck. ?? Pull your elbows in until they touch at chin level. (Unclasp your fingers if you need to.) ?? Repeat 10 times. Last Reviewed Date: 2023 00:00:00 ?? [employer]. All rights reserved. This information is not intended as a substitute for professional medical care. Always follow your healthcare professional's instructions. * Hedy Lim RN - 11/14/2024 12:41 PM EDT Images from the original note were not included. [address]115 Exercises After Breast Surgery: Ball Squeeze, Arm Cross, and Broom Stretch As you recover from breast surgery, your healthcare provider will tell you when it's safe to start exercising, what kind of exercises you should do, and how much you should do. Your goal is to regainnormal arm and shoulder range of motion and use of your arm. This will also improve your strength and prevent scarring from limiting your movement (scar contracture). For your safety, use this handout only as directed by your healthcare provider or physical therapist. These are two exercises that may be suggested. Be sure to take deep breaths as you do each exercise. Speak with your surgeon and healthcare team about other exercises that might be right for you. Ball squeeze ?? While standing, sitting, or lying down, hold a rubber ball in your hand on the treated side. ?? Keep your arm slightly bent with your palm toward the ceiling. Lift your hand higher than your heart. Squeeze and relax the ball. ?? Repeat 10 times. Arm cross ?? Stand with elbows bent and raised to shoulder level. Cross one arm on top of the other arm. Touch your elbows with your fingers. ?? Push your elbows backward, squeezing your shoulder blades together. ?? Repeat 10 times. Last Reviewed Date: 2023 00:00:00 ?? [id number] [employer]. All rights reserved. This information is not intended as a substitute for professional medical care. Always follow your healthcare professional's instructions. * Hedy Lim RN - 11/14/2024 12:41 PM EDT Images from the original note were not included. 9 Taking Care of Your Drain Tube ([place]) During surgery, your doctor placed a drain that comes out of your skin. It will remove the fluid that collects near your incision. The drain has a plastic tube and a bulb to hold the fluid. It works by using a small amount of suction. This handout contains important information about caring for your drain tube. When to call your doctor - you need to know when it is important to call your doctor about a problem or concern with your drain. Call your doctor if: ? The tube falls out or the incision opens. ? You see pus around the drain tube or incision. ? You see any of these signs that the skin is infected - it is: * red * swollen * tender to the touch * pulled away from the drain tube ? You have a fever of 101.5 or more. ? The fluid in the drain smells bad. ? The fluid in the drain changes color or turns bloodier. ? You have pain at the incision site that was not there before. ? There is a big change in the amount of fluid that drains. For example, if you need to empty the bulb after 4 hours when you normally empty it every 6 hours. ? The bulb part of the drain fills up with air or will not stay flat. ----- Call your doctor right away if the amount of fluid doubles in a 4-hour period. ----- Write down the phone number you would call here: How to Empty Your Drain Tube You need to empty the fluid that drains into the bulb every 4-8 hours. Don?t let the bulb fill up more than half full. What you need: ?? Gauze pads (4x4s) ?? Measuring cup ?? Drain Amounts Chart (at the end of this handout) Drain the tube: 1. Wash your hands with warm, soapy water. 2. Pull the plug out of the bulb. 3. Empty the fluid from the bulb into the measuring cup. Don?t let the bulb touch the cup. 4. Make sure there is no fluid left in the bulb. 5. Wipe off the outside of the bulb plug with a clean gauze 4x4. Throw the 4x4 away after using. 6. Squeeze all the air out of the bulb. While the air is out of the bulb, put the plugback into theopening. The bulb should stay flat. Some people have trouble keeping the bulb squeezed flat and putting the plug back in at the same time. If this happens, place the bulb on a flat hard surface, like a counter top, and use one hand to keep it flat. Use your other hand to replace the plug. 7. Write down how much fluid is in the measuring cup on the Drain Amounts Chart, along with the date and time. 8. Pour the fluid into the toilet and flush. How to Unclog Your Drain Tube Sometimes clots will clog your drain tube, causing fluid to back up into your body or spill out around the tube site. It is very important to take care of this problem right away. If you see or feel a clot in the tube, make sure you squeeze it out into the bulb. This is called ?milking? or ?stripping? your drain tube. Do this when the drain does not seem to beworking properly. 1. Male Infertility Specialist the tube near the skin and hold it in place with one hand. This will keep the tube from pulling out of the skin. 2. With your other hand, pinch the tube between your thumb and first finger. 3. Starting near the skin where you are holding the tube in place, pull your fingers along the tubetoward the bulb. This helps push the clogged fluid into the bulb. * Stop right away if you start to pull the tube away from your skin! 4. If the fluid still does not drain after you try this, call your doctor. Reminders ?? Don?t let the tube get kinked. ?? Don?t squeeze the bulb with the plug in place. ?? Fill in your Drain Amounts Chart every time you empty the bulb. ?? Remember to bring your Drain Amounts Chart to your clinic appointment. Drain Amounts Chart Write down the amount of fluid that you empty from your drain bulb every 4-8 hours. Empty the bulb more often if it fills up. Some people may have 2 drains. If you only have 1 drain, ignore the chart for Drain #2. Drain #1 Drain #2 Date/Time Amount Date/Time Amount Date/Time Amount Date/Time Amount 02/17/09 7 a.m. 20ml * Miranda Sae - Hedy Nunez RN - 11/14/2024 12:41 PM EDT Images from the original note were not included. 916 Bathing Before Surgery Basic instructions ?? You need to bathe with Hibiclens (chlorhexidine) before surgery. This will clean your skin and remove germs that live on the skin. This reduces your risk of infection after surgery. ?? You?will get?free packets in the clinic, or you can?buy Hibiclens at most drug stores. ?? You need to bathe with Hibiclens twice before surgery - once the night before surgery and again the morning of surgery. ?? Do not use Hibiclens on your hair or anywhere above the neck. ?? You should not shave with a razor or use hair removal creams near the surgery site for 4 days before surgery. Night before surgery If you take a shower or tub bath: 1. Wash with regular soap and water and rinse off. 2. You may wash your hair the night before. Shampoo and rinse as usual. 3. Pour 1 ounce (2 tablespoons) of Hibiclens on a clean washcloth. Wash the area where you will be having your surgery first. Then wash the rest of the body, leaving the groin area until last. 4. Allow the Hibiclens to stay on the skin for 5 minutes, then rinse off completely. 5. Use a clean towel to dry off. 6. Put on clean clothing and be sure to have clean sheets on your bed. Morning of surgery ?? Repeat the above steps except do not shampoo your hair. If you develop a skin problem between now and your surgery, please tell your doctor as soon as possible at [phone]. * Miranda Quevedo - Hedy Nunez RN - 11/14/2024 12:40 PM EDT Images from the original note were not included. 704 After Mastectomy Staying Active You need to keep your whole body active after your surgery. ?? Take deep breaths and cough. ?? Walk around your room while you are in the hospital. You don?t have to, and shouldn?t stay in bed. ?? Use your arm for normal activities like bathing and eating. But do not lift anything over 5 pounds until your doctor says it is ok. ?? Do not raise your arm straight over your head on the side where you had your surgery. ?? You should wear button-up shirts for easy dressing. o If you wear hide puller shirts, wear a larger size than normal. Put the arm on the surgery side in first. Then pull the shirt over your head without lifting that arm. ?? Most people may return to driving once the drains are removed. Arm and Shoulder Exercises ?? Stretching exercises are very important after breast surgery. We will show you how to do them. ?? Don?t do any exercised until all of the drains are removed. ?? After all drains are removed, do the arm-lift exercises 4 times daily. Keep doing this for 4 to 6 weeks after surgery. Taking Care of Your Incision ?? Most women go home wearing a surgi-bra. It keeps the gauze padding (bandage) in place without tape. ?? Your incision is closed on the inside of your skin with stitches that will dissolve in 4-6 weeks. ?? There will be either paper strips called steri-strips or skin glue on the incision. The edges ofthe steri-strips will curl up in about 1 week and will begin falling off in 1-2 weeks. They can be removed at 2 weeks after surgery (usually in your follow up appointment). If skin glue was used thiswill flake off in 1-2 weeks. ?? Do not apply any lotions or creams to your incision for the first 2 weeks after surgery. Gauze Padding (Bandage) ?? You may remove the gauze padding (bandage) on your breast 2 days after surgery. It does not needto be replaced. It is ok if your incision is exposed to the air. ?? The surgi-bra is for your comfort. You don?t need to wear it if it?s not comfortable. Grooming ?? You may shower 2 days after your surgery. ?? No soaking in the tub, hot tubs, or swimming while drains are in place and for 2 weeks after drain removal. ?? Try not to irritate the incision when shaving or putting on deodorant. Use a mirror for these activities. Drain Care You may go home with at least 1 drain placed into your skin. We will teach you how to care for the drain. Numbness and Tingling The upper part of your arm and around the incision on the breast may feel numb and tingly. And you may feel sharp pain like an electric shock in your arm or breast. This is normal and may get better over time. Swelling ?? A small amount of swelling in the breast, chest wall, or armpit is normal during the first monthafter surgery. ?? Use pillows to raise your whole arm above your heart to help with swelling in the arm or armpit. Taking Blood or Injections ?? If you had a sentinel lymph node biopsy (where only 1-3 lymph nodes are taken out): You can haveblood draws, injections, and IV?s in the arm on the same side. ?? If you have had an axillary lymph node dissection (where all lymph nodes are removed and you hada drain after the procedure): Avoid having blood draws, injections, and IV?s in the arm on the sidethat the lymph node dissection was performed. If there are no other options, tell the provider about your history of having breast cancer and an axillary lymph node dissection. Monthly Breast Self-Exam Do a breast self-exam every month. If you don?t know how to do a breast self- exam, ask your doctor or nurse to teach you how. You can also get a booklet on breast self-exam in the Breast Center. Changes You Will Feel 2 Weeks After Surgery You may feel a pain in your armpit, down your arm, or in your breast. This is a normal part of healing. To help you can: ?? Start exercising more 2 weeks after surgery.Take a mild pain medicine like Tylenol or Ibuprofen. ?? Take warm showers. Also, your incision(s) may feel thick and lumpy. This is a normal part of healing. To help you can: ?? 2 weeks after surgery, you can start rubbing the incision with a lotion that has Vitamin E or pure lanolin in it. You can get these kinds of lotions at a drug store, a discount store, or a health food store. ?? You can also rub Vitamin E on the incision. Prick a Vitamin E capsule with a pin. Squeeze out the oil and apply it to the incision. ?? Don?t use perfumed lotions. They may contain alcohol which will irritate your skin. ?? If you have radiation therapy after surgery, ask your radiation doctor before putting on lotion or oil during your radiation therapy. ?? The scar will slowly soften and become conveyor maintenance mechanic in color over several weeks. * Progress Notes - Sarah Vallejo APRN - 11/14/2024 11:30 AM EDT Images from the original note were not included. [facility] Progress Note This is the first [facility] visit for this 59 y.o. female referred by Fani Ko APRN to finalize surgical plan of left self-detected invasive lobular carcinoma. History of [...] was consistent with invasive lobular carcinoma G1 ER/IN+ and the additional cores also showed invasive lobular carcinoma G1 ER/IN+. A left axillary US was performed on 10/24/2024 showing 4 mildly abnormal lymph nodes demonstrating asymmetric cortical thickening. Lymph nodes #1 and #3 demonstrate normal morphology. FNA of 10mm lymph node #4 on 10/24/2024 positive for malignancy (U-shaped tissue marker placed). She denies breast pain, skin or nipple changes, and nipple discharge. She also denies unintentionalweight loss (deliberately losing weight on GLP1), fatigue, or new back pain, neck pain, or headaches. She presents today to finalize surgical plan. Endorses slight increase in biopsy proven ILC. Interval History 11/14/2024: Saw plastics, wants to do flat closure. Patient discontinued Ozempic 2 weeks ago in preparation for surgery. Health Maintenance Colonoscopy: within last 10 years FOOD SERVICES COORDINATOR Exam: no longer needed, prior hysterectomy including [...] person: significant other of 18 years, Avi (retired) Housing: stable housing, lives in [place] Transportation: readily available Family History Family History[3] [...] performance without restriction Vital Signs: Visit Vitals OB Status Hysterectomy Smoking Status Never Visit Vitals BP 125/80 (BP Location: Right arm) Pulse 51 Temp 36.7 ??C (98 ??F) (Oral) Resp 17 General: The patient is a well-developed individual [...] lymphadenopathy. Small, palpable area in the left axilla - FNA proven positive for malignancy. Chest: The chest expands symmetrically and the [...] is a firm, palpable, mobile mass approx 3 cm in size at the 5 o'clock [...] w/o suspicious findings in the right breast A left axillary US was performed on 10/24/2024 showing 4 mildly abnormal lymph nodes demonstrating asymmetric cortical thickening. Lymph nodes #1 and #3 demonstrate normal morphology. FNA of 10mm lymph node #4 on 10/24/2024 positive for malignancy (U-shaped tissue marker placed). Outside Imaging Review: Left breast US was [...] here. Final Diagnosis (no units) Date/Time Value 10/24/2024 1220 A. LYMPH NODE, LEFT AXILLARY, ULTRASOUND GUIDED FINE NEEDLE ASPIRATION: - POSITIVE FOR MALIGNANCY, METASTATIC CARCINOMA MORPHOLOGICALLY COMPATIBLE WITH BREAST PRIMARY. Comment (no units) Date/Time Value 10/17/2024 1110 Biomarkers (as reported from referring laboratory) (not reviewed) A and B ER positive IN positive Her/sarah negative I have personally reviewed the pathology report. CARE TEAM Primary Care Physician: Fani Ko APRN Plastic and Reconstructive Surgery: Not assigned Medical Oncology: Not assigned Radiation Oncology: Not [...] Stage IB (cT2, cN0, cM0, G1, ER+, IN+, HER2-) - Unsigned Histopathologic type: Lobular carcinoma, NOS Stage prefix: Initial diagnosis Method of lymph node assessment: Clinical Histologic grading system: 3 grade system DISCUSSION: Zoila and Graciela reviewed her situation in detail including her clinical exam findings, imaging and pathology reports. We began by discussing the natural history of breast cancer, and the rationale for both locoregional and systemic therapy, which is multi-step and multidisciplinary. She expressed interest in mastectomy and recently met with Adalgisa Trinidad APRN in Plastic Surgery to discuss reconstruction options. Patient would like to proceed with bilateral mastectomy with flat closure. We reviewed the risks of the procedure, which include but are not limited to, bleeding, infection, seroma, scar formation, cosmetic deformity, and sensory changes. Management of the axilla was also discussed. Given [address] and positive FNA, discussed proceeding with left ALND. We also reviewed the risks of axillary surgery, which include but are not limited to bleeding, infection, seroma, altered sensation of the axilla and/or upper arm, injury to surrounding neurovascular structures, and lymphedema. We then discussed the potential role of [...] This will be discussed furtherat subsequent appointments. PLAN: - Right simple mastectomy, left modified radical mastectomy with flat closure on 12/27/2024 - surgical teaching performed today - will consent day of surgery The patient expressed understanding of the treatment plan. All questions were answered to her apparent satisfaction. She was encouraged to contact the office if any questions or concerns arise. Dr. Evonne Martinez MD Drywall Hanger Framer of Surgical Oncology [facility] I spent 40 minutes on this encounter, including preparing to [...] Dispense Refill Blood Glucose Monitoring Suppl (ONE SCONTO DIGITALE ULTRA 2) w/Device kit device kit daily. use as directed DULoxetine (Cymbalta) [address] capsule Take 1 capsule by mouth daily. hydroCHLOROthiazide (HYDRODiuril) 50 MG tablet take 1 tablet by mouth daily in the morning HYDROcodone-acetaminophen ([place]) 5-325 MG tablet Take 1 tablet by [...] tablet Take 1 tablet by mouth daily. [employer] Ultra Test test strip USE DIRECTED IN VITRO ONCE A DAY Ozempic, 0.25 or 0.5 MG/DOSE, 2 MG/3ML solution pen-injector INJECT 0.25 MG UNDER THE SKIN ONCE WEEKLY simvastatin (Zocor) 80 MG tablet Take 1 tablet by mouth every evening. zolpidem (Ambien) 10 MG tablet Take 1 tablet by mouth daily. Current Facility-Administered Medications on File Prior to Visit Medication Dose Route Frequency Provider Last Rate Last Admin lidocaine (Xylocaine) 1 % injection 8 mL 8 mL Infiltration Once Kendra Joiner MD sodium bicarbonate 8.4 % injection 2 mEq 2 mEq Subcutaneous Once Kendra Joiner MD [5] Allergies Allergen Reactions Penicillins Hives Cosigned by Evonne Martinez MD at 11/14/2024 4:29 PM EDT Associated attestation - Evonne Martinez MD - 11/14/2024 4:29 PM EDT Images from the original note were not included. Attending Attestation: I personally saw and evaluated the patient with the FERRY PILOT. I attest to being involved in providing substantive time in patient care. I discussed the case with them and agree with the findings as documented. The discussion and plan reflect my edits and medical decision making. Dr. Evonne Martinez MD Drywall Hanger Framer of Surgical Oncology [facility] documented in this encounter Plan of Treatment Upcoming Encounters Date Type Department Care Team (Late st Contact Info) Description 12/27/2024 8:00 AM EDT Hospital Encounter [facility] [address] [place] [address] Evonne Martinez MD [address] [facility] [address] 12/27/2024 8:00 AM EDT - 12/27/2024 2:15 PM EDT Surgery [facility] [address] [place] [address] Evonne Martinez MD [address] [facility] [address] [address] Bilateral mastectomy flat closure [00792 (CPT )] 01/09/2025 2:00 PM EDT Office Visit [facility] [address] [facility] [place] [address] Evonne Martinez MD [address] [facility] [address] [place] [address] Scheduled Procedures Name Priority Associated Diagnoses Date/Ti me MASTECTOMY, BILATERAL Invasive lobular carcinoma of breast in female 12/27/2024 8:00 AM EDT LYMPHADENECTOMY, AXILLARY Invasive lobular carcinoma of breast in female 12/27/2024 8:00 AM EDT documented as of this encounter Goals Goal Patient Goal Type Associated Problems Recent Progress Patient-Stated? Author Autogenerat ed Goal Care Plan Autogenerated Problem No Andre Denton documented as of this encounter Visit Diagnoses Diagnosis Invasive lobular carcinoma of breast in female- Primary Invasive lobular carcinoma of breast in female documented in this encounter Additional Health Concerns Active Problems Noted Date Diagnosed Date Autogenerated Problem 11/14/2024 Assessment Noted Time PHQ-9 Depression Total Score: 14 025 8:37 AM EDT A fall risk assessment has been complete d for the patient 11/14/2024 11:29 AM EDT A Body Mass Index follow-up plan has been documented for the patient 11/01/2024 9:05 AM EDT documented as of this encounter Care Teams Blacktop Spreader Relationship Specialty Start Date End Date Fani Ko, FERRY PILOT [address] [place] [address] PCP - General 10/24/24 documented as of this encounter
--- OUTSIDE RECORDS SUMMARY | 2024-12-22 14:00 | XMS_ITS | Encounter Summary ---
Author Organization [facility] Address [address] [place] [address] Care Team Providers Care Canadian Bacon Tier Name Role Phone Fani Ko APRN Primary Care Provider +1 [phone] Reason for Visit * Reason Comments Distress Screen Follow-up Encounter Details Date Type Department Care Team (Late st Contact Info) Description 10/24/2024 Social Work [facility] [address] [facility], 2nd [place] [address] Swapna Urbina, [place] [address] Social History Tobacco Use Types Packs/Day Years [...] encounter Miscellaneous Notes * Progress Notes - Swapna Urbina, GEAR CUTTING MACHINE OPERATOR - 10/24/2024 9:52 AM EDT Encounter Type: Distress Follow Up - In Person Disease Status: Initial Psych Onc Contact Clinic [facility] Disease Type: Breast Services Provided: Emotional Support Education Provided: Psych-Onc Services Intervention Level: 2 Units (1 unit = 15 minutes): 1 Narrative: public health outreach worker met with patient and spouse in clinic to follow up with DT and to offer support. SW introduced self and engaged with patient. Patient presented tearful and expressed nervousness and fears related to unknown tx plan and dx. SW provided active, empathetic listening and normalized emotions experienced. SW provided patient general info on psych-onc supports including practical needs such as lodging, transportation, etc. And emotional support with peer to peer supports or support groups. Patient thanked SHYLA for the info and visit. SHYLA will provide patient with contact info and informedpatient that she can also requests SW consults in clinic. Patient verbalized understanding. SHYLA remains available ongoing. documented in this encounter Plan of Treatment Upcoming Encounters Date Type Department Care Team ([facility] st Contact Info) Description 12/27/2024 8:00 AM EDT Hospital Encounter [facility] [address] [place] [address] Evonne Martinez MD [address] [facility] [address] 12/27/2024 8:00 AM EDT - 12/27/2024 2:15 PM EDT Surgery [facility] [address] [place] [phone] Evonne Martinez MD [address] [facility] [address] Bilateral mastectomy flat closure [48690 (CPT )] 01/09/2025 2:00 PM EDT Office Visit [facility] [address] [facility], 2nd [place] [phone] Evonne Martinez MD 800 [facility] [address] [address] Scheduled Procedures Name Priority Associated Diagnoses Date/Ti me MASTECTOMY, BILATERAL Invasive lobular carcinoma of breast in female 12/27/2024 8:00 AM EDT LYMPHADENECTOMY, AXILLARY Invasive lobular carcinoma of breast in female 12/27/2024 8:00 AM EDT documented as of this encounter Visit Diagnoses Not on filedocumented in this encounter Additional Health Concerns Assessment Noted Time PHQ-9 Depression Total Score: 14 025 8:37 AM EDT A fall risk assessment has been complete d for the patient 10/24/2024 8:37 AM EDT documented as of this encounter Care Teams Canadian Bacon Tier Relationship Specialty Start Date End Date Fani Ko APRN [address] [place] [address] PCP - General 10/24/24 documented as of this encounter
--- OUTSIDE RECORDS SUMMARY | 2024-12-22 14:00 | XMS_ITS | Encounter Summary ---
Author Organization [facility] Address [address] [facility] [place] [address] Care Team Providers Care Temporary Receptionist Name Role Phone Fani Ko APRN Primary Care Provider [phone] [phone] Encounter Details Date Type Department Care Team (Latest Contact Info) Description 10/24/2024 Travel Social History Tobacco Use Types Packs/Day Years [...] Crystal R documented as of this encounter Plan of Treatment Upcoming Encounters Date Type Department Care Team (Late st Contact Info) Description 12/27/2024 8:00 AM EDT Hospital Encounter [facility] [address] [place] [phone] Evonne Martinez MD [address] [facility] Krys Scott [address] [phone] 12/27/2024 8:00 AM EDT - 12/27/2024 2:15 PM EDT Surgery [facility] [address] [place] [phone] Evonne Martinez MD [address] [facility] Krys Scott [address] [address] Bilateral mastectomy flat closure [85968 (CPT )] 01/09/2025 2:00 PM EDT Office Visit [facility] [address] [facility], 2nd [place] [address] Evonne Martinez MD [address] [place] [address] Scheduled Procedures Name Priority Associated Diagnoses Date/Ti [...] documented as of this encounter Care Teams Temporary Receptionist Relationship Specialty Start Date End Date Fani Ko, [employer] MENDER [address] [place] [address] PCP - General 10/24/24 documented as of this encounter
--- OUTSIDE RECORDS SUMMARY | 2024-12-22 14:00 | XMS_ITS | Clinical Summary ---
Author Organization [facility] Address [address] [place] [address] Care Team Providers Care C Web Developer Name Role Phone Fani Ko APRN Primary Care Provider [phone] [phone] Allergies Active Allergy Reactions Criticality Noted Date Comments Penicillins Hives Medium 10/24/2024 Medications Blood Glucose Monitoring Suppl (ONE TOUCH ULTRA 2) w/Device kit device kit daily. use as directed 12/09/2023 Active DULoxetine (Cymbalta) [address] capsule Take 1 capsule by mouth daily. 10/16/2024 Active CerahelixTouch Ultra Test test strip USE DIRECTED IN VITRO ONCE A DAY 07/18/2024 Active hydroCHLOROthia zide (HYDRODiuril) 50 MG tablet take 1 tablet by mouth daily in the morning 09/20/2024 Active HYDROcodone-harry taminophen (Prescott) 5-325 MG tablet Take 1 tablet by mouth every 6 hours. 04/12/2024 Active ibuprofen 800 MG tablet TAKE 1 TABLET BY MOUTH EVERY 8 HOURS WITH FOOD OR MILK FOR 14 DAYS NEEDED 10/16/2024 Active levothyroxine (Synthroid, Levoxyl) 88 MCG tablet Take 1 tablet by mouth daily. 07/20/2024 Active metFORMIN XR (Glucophage-XR) 750 MG 24 hr tablet daily. 10/16/2024 Active nadolol (Corgard) 40 MG tablet Take 1 tablet by mouth daily. 10/16/2024 Active Ozempic, 0.25 or 0.5 MG/DOSE, 2 MG/3ML solution pen-injector INJECT 0.25 MG UNDER THE SKIN ONCE WEEKLY 10/05/2024 Active simvastatin (Zocor) 80 MG tablet Take 1 tablet by mouth every evening. 08/29/2024 Active zolpidem (Ambien) 10 MG tablet Take 1 tablet by mouth at night as needed. 08/21/2024 Active Hospital, Clinic, or Other Facility Administered Medication Ordered Dose Route Frequency Start Date End Date Status sodium bicarbonate 8.4 % injection 2 mEqIndications:Abnorma l finding on breast imaging 2 mEq SC Once 10/24/2024 Active lidocaine (Xylocaine) 1 % injection 8 mLIndications:Abnormal finding on breast imaging 8 mL INFILTRATION Once 10/24/2024 Active Active Problems Problem Noted Date Diagnosed Date Invasive lobular carcinoma of breast in female 0 10/24/2024 Cancer Staging:Clinical stage from 10/24/2024:Stage IB(cT2, cN0, cM0, G1, ER+, SD+, HER2-) - Unsigned Encounters Date Type Department Care Team Description 12/22/2024 Travel 11/14/2024 11:30 AM EDT Office Visit [facility] [address] [place] [phone] Evonne Martinez MD Invasive lobular carcinoma of breast in female (Primary Dx) 11/14/2024 Travel 11/08/2024 Travel 11/01/2024 8:30 AM EDT Office Visit [facility] [address] [place] [address] Adalgisa Trinidad, TRANSPORTATION WORKER, DNP Encounter to discuss breast reconstruction (Primary Dx) 11/01/2024 Orders Only [facility] [address] [place] [phone] Evonne Martinez MD Invasive lobular carcinoma of breast in female (Primary Dx); Invasive lobular carcinoma of breast in female 11/01/2024 Travel 10/27/2024 Telephone [facility] [address] [facility] [address] [place] [address] Berta Ramirez RN 10/27/2024 Telephone [facility] [address] [facility] [address] [place] [address] Berta Ramirez RN 10/26/2024 Travel 10/24/2024 10:59 AM EDT - 10/24/2024 11:59 PM EDT Hospital Encounter [facility] [address] [facility] [address] [place] [address] Abnormal finding on breast imaging Discharge Disposition: Home or Self Care 10/24/2024 10:00 AM EDT - 10/24/2024 10:58 AM EDT Hospital Encounter [facility] [address] [facility] [address] [place] [address] Malignant neoplasm of left breast in female, estrogen receptor positive, unspecified site of breast Discharge Disposition: Home or Self Care 10/24/2024 8:30 AM EDT Office Visit [facility] [address] [phone] Evonne Martinez MD Invasive lobular carcinoma of breast in female (Primary Dx); Breast cancer; Malignant neoplasm of left breast in female, estrogen receptor positive, unspecified site of breast 10/24/2024 Social Work [facility] [address] [address] Swapna Urbina LCSW 10/24/2024 Travel 10/17/2024 Lab Requisition [facility] [address] [place] [address] Evonne Martinez MD Unspecified lump in unspecified breast 10/02/2024 Orders Only External Location [address] [place] [address] Provider, External 10/02/2024 Orders Only External Location [address] [place] [address] Provider, External from Last 3 Months Family History Medical History Relation Name Comments Colon cancer Cousin Heart disease Father Prostate cancer Father Colon cancer Father's Sister 1 Lung cancer Father's Sister 2 Relation Name Status Comments Cousin Father Father's Sister 1 Father's Sister 2 Social History Tobacco Use Types Packs/Day Years [...] on file Sexual Orientation Not on file Last Filed Vital Signs Vital Sign Reading [...] Mass Index 37.54 11/14/2024 11:29 AM EDT Plan of Treatment Upcoming Encounters Date Type Department Care Team (Late st Contact Info) Description 12/27/2024 8:00 AM EDT [facility] [address] [place] [phone] Evonne Martinez MD 800 [facility] [address] [address] 12/27/2024 8:00 AM EDT - 12/27/2024 2:15 PM EDT Surgery [facility] [address] [place] [phone] Evonne Martinez MD [address] [facility] Krys Scott [address] [address] Bilateral mastectomy flat closure [93985 (CPT )] 01/09/2025 2:00 PM EDT Office Visit [facility] [address] [place] [address] Evonne Martinez MD [address] [place] [phone] Scheduled Procedures Name Priority Associated Diagnoses Date/Ti me MASTECTOMY, BILATERAL Invasive lobular carcinoma of breast in female 12/27/2024 8:00 AM EDT LYMPHADENECTOMY, AXILLARY Invasive lobular carcinoma of breast in female 12/27/2024 8:00 AM EDT Health Maintenance Due Date Last Done Comments [facility]-HIV Screening 1964 [facility]-Hepatitis C Screening 1964 [facility]-Medicare Annual Wellness (AWV) 1964 [facility]-/Child/Adol SDOH Screenings 1964 [facility]- SDOH Screenings 1982 [facility]-Adult SDOH Screenings 1982 [facility]-DTaP,Tdap,and Td Vaccines (1 - Tdap) 1983 [facility]-Pneumococcal Vaccine: 50+ Years (1 of 2 - PCV) 1983 [facility]-Zoster Vaccines (1 of 2) 1983 CT Colonography 2009 Colonoscopy 2009 FIT-DNA 2009 FIT 2009 FOBT 2009 Sigmoidoscopy 2009 [facility]-Colorectal Cancer Screening 2009 [facility]-FSLNM-45 Vaccine ( season) 2024 05/07/2023, 07/10/2022, 01/30/2022, Additional history exists [facility]-RSV Vaccine: 60+ Years or (1 - Risk 60-74 years 1-dose series) 2024 [facility]-Influenza Vaccine (Season Ended) 2025 05/07/2023, 04/15/2022 [facility]-Depression Screening 10/24/2025 10/24/2024, 10/10 [facility]-Obesity Intervention Completed 11/01/2024 HPV Vaccines Aged Out No longer eligi ble based on patient's age to complete this topic [facility]-HIB Vaccines Aged Out No longer e ligible based on patient's age to complete this topic [facility]-Hepatitis A Vaccines Aged Out No longer eligible based on patient's age to complete this topic [facility]-IPV Vaccines Aged Out No longer e ligible based on patient's age to complete this topic [facility]-Rotavirus Vaccines Aged Out No lo nger eligible based on patient's age to complete this topic Goals Goal Patient Goal Type Associated Problems Recent Progress Patient-Stated? Author Autogenerat ed Goal Care Plan Autogenerated Problem No Andre Denton Joseph Procedures Procedure Name Priority Date/Time Associated Diagnosis Comments US GUIDED BREAST FINE NEEDLE ASPIRATION Routine 10/24/2024 12:20 PM EDT Abnormal finding on breast imaging FINE NEEDLE ASPIRATION - CYTOLOGY Routine 10/24/2024 12:20 PM EDT Abnormal finding on breast imaging US AXILLA LEFT Routine 10/24/2024 10:40 AM EDT Malignant neoplasm of left breast in female, estrogen receptor positive, unspecified site of breast SURGICAL PATHOLOGY CONSULT Routine 10/17/2024 11:10 AM EDT Unspecified lump in unspecified breast MAMMOGRAPHY OUTSIDE IMAGES 10/02/2024 8:50 AM EDT US BREAST OUTSIDE IMAGES UPLOAD 10/02/2024 7:51 AM EDT from Last 3 Months Results * US Guided Breast Fine Needle [...] documented in the patient's chart at the [facility]. Drafted by Kendra Joiner [...] on 10/24/2024 2:32 PM Evonne Martinez MD IM BI PROCEDURES Edited Result - Final * Fine needle aspiration (10/24/2024 12:20 PM EDT) Case Report Cytology Case: [id number] Authorizing Provider: Evonne Martinez MD Collected: 10/24/2024 1220 Ordering Location: [facility] Received: 10/24/2024 7176 Pathologist: Felicia Muniz MD Specimen: Lymph Node, Left Axilla, Fine Needle Aspiration, LYMPH NODE, LEFT AXILLARY, ULTRASOUND GUIDED FINE NEEDLE ASPIRATION 5 5:47 PM EDT [facility] Final Diagnosis A. LYMPH NODE, LEFT AXILLARY, ULTRASOUND GUIDED FINE NEEDLE ASPIRATION: - POSITIVE FOR MALIGNANCY, METASTATIC CARCINOMA MORPHOLOGICALLY COMPATIBLE WITH BREAST PRIMARY. 5 5:47 PM EDT [facility] at 1747 EDT Intradepartmental Consultation with Agreement Dr. Brandt Salmeron 5:47 PM EDT [facility] Immediate Evaluation FNA performed by: Dr. Joiner Number of sticks: 3 Immediate evaluation performed by: Dr. Muniz/LT/AR Evaluation episode # 1-3: Atypical. The immediate evaluation in this case was performed via telecytology by the attending physician listed above. 5:47 PM EDT [facility] Gross Description A. LYMPH NODE, LEFT AXILLARY, ULTRASOUND GUIDED FINE NEEDLE ASPIRATION 5 ml's cloudy needle rinse fluid processed as Thinprep for complete evaluation of sample. Received 3 diff quick slides and 3 pap slides. 5:47 PM EDT [facility] Note: A resident was involved in the service. I attest I examined the relevant preparations for the specimens and confirmed the diagnosis or interpretation. 5:47 PM EDT [facility] Clinical Information R92.8 - Abnormal finding on breast imaging [ICD-10-CM] 5:47 PM EDT [facility] Fine Needle Aspirate Structure of lymph node / Unknown 10/24/2024 12:20 PM EDT 10/24/2024 1:58 PM EDT us Evonne Martinez MD LAB CYTOLOGY ORDERABLES Final Re sult Performing Organization Address City/State/[facility] Co de Phone Number [facility] [address] [place] [address] * (ABNORMAL) US Axilla Left (10/24/2024 10:40 [...] Martinez MD IMG BI PROCEDURES Final Result * Surgical Pathology Consult (10/17/2024 11:10 AM EDT) Case Report Sugical Pathology Consult Case: [id number] Authorizing Provider: Evonne Martinez MD Collected: 10/17/2024 1110 [facility]ing [facility]: [facility] Received: 10/17/2024 1110 Pathologist: Cyndie Laguerre MD Specimen: Breast, Left, [id number] 10/18/2024 1:46 PM EDT [facility] Final Diagnosis Outside slides Date of collection: 10/02/24 A Left breast (2:00 / 7 cfn), needle-core/mamm otome biopsy: - Invasive lobular carcinoma, grade 1 - Lobular carcinoma in situ B Left breast (4-5:00), needle-core biopsy: - Invasive lobular carcinoma, grade 1 - Lobular carcinoma in situ 10/18/2024 1:46 PM EDT [facility] at 1346 EDT Comment Biomarkers (as reported from referring laboratory) (not reviewed) A and B ER positive SD positive Her/sarah negative 10/18/2024 1:46 PM EDT [facility] Clinical Information N63.0 - Unspecified lump in unspecified breast [ICD-10-CM] 10/18/2024 1:46 PM EDT [facility] Gross Description A. [id number] Received along with a corresponding pathology report from [facility] are 3 slides labeled outside case: [id number] collected on 10/02/2024. 10/18/2024 1:46 PM EDT [facility] Note: A resident was involved in the service. I attest I examined the relevant preparations for the specimens and confirmed the diagnosis or interpretation. 10/18/2024 1:46 PM EDT [facility] Tissue Left breast structure / Unknown 10/17/2024 11:10 AM EDT 10/17/2024 11:10 AM EDT us Evonne Martinez MD LAB PATHOLOGY ORDERABLES Final R esult [facility] [address] [place] [address] * MAMMOGRAPHY OUTSIDE IMAGES (10/02/2024 8:50 AM EDT) Anatomical Region Laterality Modality Breast Mammography 10/02/2024 8:50 AM EDT us External Provider IMG BI PROCEDURES Final Result * US Breast Imaging Outside Images Upload (10/02/2024 7:51 AM EDT) Anatomical Region Laterality Modality Mammography 10/02/2024 7:51 AM EDT us External Provider IMG BI PROCEDURES Final Result from Last 3 Months Additional Health Concerns Active Problems Noted Date Diagnosed Date Autogenerated Problem 11/14/2024 Insurance MEDICARE Care Teams C Web Developer Relationship Specialty Start Date End Date Fani Ko APRN [address] [place] [address] PCP - General 10/24/24
--- OUTSIDE RECORDS SUMMARY | 2024-12-22 14:00 | XMS_ITS | Encounter Summary ---
Author Organization Healthcare Address [address] [place] [address] Care Team Providers Care Cinder Crew Worker Name Role Phone Fani Ko APRN Primary Care Provider +1 [phone] Encounter Details Date Type Department Care Team (Late st Contact Info) Description 10/02/2024 Orders Only External Location [address] [place] [address] Provider, External Social History Tobacco Use Types Packs/Day Years Used Date Smoking Tobacco: Never Assessed Comments Unknown Sex and Gender Information Value Date Recorded Sex Assigned at Not on file Legal Sex Female 4:24 PM EDT Gender Identity Not on file Sexual Orientation Not on file documented as of this encounter Plan of Treatment Upcoming Encounters Date Type Department Care Team (Late st Contact Info) Description 12/27/2024 8:00 AM EDT Hospital Encounter [facility] [address] [place] [phone] Evonne Martinez MD 800 [facility] Krys Scott [address] [address] 12/27/2024 8:00 AM EDT - 12/27/2024 2:15 PM EDT Surgery [facility] [address] [place] [address] Evonne Martinez MD 800 [facility] Krys Scott [address] [address] Bilateral mastectomy flat closure [30242 (CPT )] 01/09/2025 2:00 PM EDT Office Visit [facility] [address] [place] [address] Evonne Martinez MD [address] [place] [address] Scheduled Procedures Name Priority Associated Diagnoses Date/Ti me MASTECTOMY, BILATERAL Invasive lobular carcinoma of breast in female 12/27/2024 8:00 AM EDT LYMPHADENECTOMY, AXILLARY Invasive lobular carcinoma of breast in female 12/27/2024 8:00 AM EDT documented as of this encounter Procedures Procedure Name Priority Date/Time Associated Diagnosis Comments US BREAST OUTSIDE IMAGES UPLOAD 10/02/2024 7:51 AM EDT documented in this encounter Results * US Breast Imaging Outside Images Upload (10/02/2024 7:51 AM EDT) Anatomical Region Laterality Modality Mammography 10/02/2024 7:51 AM EDT us External Provider IMG BI PROCEDURES Final Result documented in this encounter Visit Diagnoses Not on filedocumented in this encounter Care Teams Cinder Crew Worker Relationship Specialty Start Date End Date Fani Ko APRN [address] [place] [address] PCP - General 10/24/24 documented as of this encounter
--- OUTSIDE RECORDS SUMMARY | 2024-12-22 14:00 | XMS_ITS | Encounter Summary ---
Author Organization Healthcare Address [address] [place] [address] Care Team Providers Care Peoplesoft Crm Developer Name Role Phone Fani Ko APRN Primary Care Provider [phone] [phone] Encounter Details Date Type Department Care Team (Latest Contact Info) Description 11/14/2024 Travel Social History Tobacco Use Types Packs/Day [...] [facility] [address] [place] [phone] Evonne Martinez MD 800 [facility] Krys Scott [address] [address] 12/27/2024 8:00 AM EDT - 12/27/2024 2:15 PM EDT Surgery [facility] [address] [place] [address] Evonne Martinez MD 800 [facility] Krys Scott [facility] [address] [place] [address] Bilateral mastectomy flat closure [78976 (CPT )] 01/09/2025 2:00 PM EDT Office Visit [facility] [address] [facility], 2nd [place] [address] Evonne Martinez MD 800 [facility] K[address] [place] [address] Scheduled Procedures Name Priority Associated [...] filedocumented in this encounter Additional Health Concerns Active [...] documented as of this encounter Care Teams Peoplesoft Crm Developer Relationship Specialty Start Date End Date Fani Ko APRN [facility] [place] [address] PCP - General 10/24/24 documented as of this encounter
--- OUTSIDE RECORDS SUMMARY | 2024-12-22 14:00 | XMS_ITS | Encounter Summary ---
Author Organization Healthcare Address [address] [place] [address] Care Team Providers Care New Car Make Ready Worker Name Role Phone ElvirabryanFani APRN Primary Care Provider +1 -[phone] Encounter Details Date Type Department Care Team (Late Contact Info) Description 10/17/2024 Lab Requisition [facility] [address] [place] [address] Evonne Martinez MD [address] [facility] Krys Scott [place] [phone] Unspecified lump in unspecified breast Social History Tobacco Use Types Packs/Day [...] [facility] [address] [place] [address] Evonne Martinez MD 800 [facility] Krys Scott [address] [address] 12/27/2024 8:00 AM EDT - 12/27/2024 2:15 PM EDT Surgery [facility] [address] [place] [address] Evonne Martinez MD [address] [place] [address] [place] [address] Bilateral mastectomy flat closure [50840 (CPT )] 01/09/2025 2:00 PM EDT Office Visit [facility] Breast Care Center [address] [facility], 2nd [place] [address] Evonne Martinez MD [address] [facility] K[address] [place] [address] Scheduled Procedures Name Priority Associated Diagnoses Date/Ti me MASTECTOMY, BILATERAL Invasive lobular carcinoma of breast in female 12/27/2024 8:00 AM EDT LYMPHADENECTOMY, AXILLARY Invasive lobular carcinoma of breast in female 12/27/2024 8:00 AM EDT documented as of this encounter Procedures Procedure Name Priority Date/Time Associated Diagnosis Comments SURGICAL PATHOLOGY CONSULT Routine 10/17/2024 11:10 AM EDT Unspecified lump in unspecified breast documented in this encounter Results * Surgical Pathology Consult (10/17/2024 11:10 AM EDT) Case Report Sugical Pathology Consult Case: [id number] Authorizing Provider: Evonne Martinez MD Collected: 10/17/2024 1110 Ordering Location: [facility] Received: 10/17/2024 1110 Pathologist: Cyndie Laguerre MD Specimen: Breast, Left, [id number] 10/18/2024 1:46 PM EDT [facility] Final Diagnosis Outside slides Date of collection: 10/02/24 A Left breast (2:00 / 7 cfn), needle-core/mamm otome biopsy: - Invasive lobular carcinoma, grade 1 - Lobular carcinoma in situ B Left breast (4-5:00), needle-core biopsy: - Invasive lobular carcinoma, grade 1 - Lobular carcinoma in situ 10/18/2024 1:46 PM EDT [facility] at 1346 EDT Comment Biomarkers (as reported from referring laboratory) (not reviewed) A and B ER positive [place] positive Her/sarah negative 10/18/2024 1:46 PM EDT [facility] Clinical Information N63.0 - Unspecified lump in unspecified breast [ICD-10-CM] 10/18/2024 1:46 PM EDT [facility] Gross Description A. [id number] Received along with a corresponding pathology report from [facility] are 3 slides labeled outside case: [id number] collected on 10/02/2024. 10/18/2024 1:46 PM EDT [facility] Note: A resident was involved in the service. I attest I examined the relevant preparations for the specimens and confirmed the diagnosis or interpretation. 10/18/2024 1:46 PM EDT [facility] Tissue Left breast structure / Unknown 10/17/2024 11:10 AM EDT 10/17/2024 11:10 AM EDT us Evonne Martinez MD LAB PATHOLOGY ORDERABLES Final R esult [facility] [address] [place] [address] documented in this encounter Visit Diagnoses Diagnosis Unspecified lump in unspecified breast Invasive lobular carcinoma of breast in female documented in this encounter Care Teams New Car Make Ready Worker Relationship Specialty Start Date End Date Fani Ko APRN [address] [place] [address] PCP - General 10/24/24 documented as of this encounter
--- OUTSIDE RECORDS SUMMARY | 2024-12-22 14:00 | XMS_ITS | Encounter Summary ---
Author Organization Healthcare Address [address] [place] [address] Care Team Providers Care Canvas Goods Maker Name Role Phone Fani Ko APRN Primary Care Provider +1 -[phone] Encounter Details Date Type Department Care Team (Latest Contact Info) Description 12/22/2024 Travel Social History Tobacco Use Types Packs/Day [...] [facility] [address] [place] [address] Evonne Martinez MD [address] [facility] K[address] [address] 12/27/2024 8:00 AM EDT - 12/27/2024 2:15 PM EDT Surgery [facility] [address] [place] [address] Evonne Martinez MD [address] [facility] K[address] Scott [facility] [address] [place] [address] Bilateral mastectomy flat closure [90405 (CPT )] 01/09/2025 2:00 PM EDT Office Visit [facility] Breast Care Center [address] [facility], 2nd [place] [address] Evonne Martinez MD [address] [facility] [address] [place] [address] Scheduled Procedures Name Priority Associated [...] documented as of this encounter Care Teams Canvas Goods Maker Relationship Specialty Start Date End Date Fani Ko APRN [facility]0 [place] [address] PCP - General 10/24/24 documented as of this encounter
--- OUTSIDE RECORDS SUMMARY | 2024-12-22 14:00 | XMS_ITS | Encounter Summary ---
Author Organization Healthcare Address [address] [place] [address] Care Team Providers Care Power And Recovery Supervisor Name Role Phone Fani Ko APRN Primary Care Provider +1 -[phone] Encounter Details Date Type Department Care Team (Late st Contact Info) Description 09/13/2024 Orders Only External Location [address] [place] [address] Provider, External Social History Tobacco [...] Encounter [facility] [address] [place] [address] Evonne Martinez MD 800 [facility] K[address] [address] 12/27/2024 8:00 AM EDT - 12/27/2024 2:15 PM EDT Surgery [facility] [address] [place] [address] Evonne Martinez MD 800 [facility] [address] [place] [address] [address] Bilateral mastectomy flat closure [05980 (CPT )] 01/09/2025 2:00 PM EDT Office Visit [facility] [address] , 2nd [place] [address] Evonne Martinez MD [address] [place] [address] Scheduled Procedures Name Priority Associated Diagnoses Date/Ti me MASTECTOMY, BILATERAL Invasive lobular carcinoma of breast in female 12/27/2024 8:00 AM EDT LYMPHADENECTOMY, AXILLARY Invasive lobular carcinoma of breast in female 12/27/2024 8:00 AM EDT documented as of this encounter Procedures Procedure Name Priority Date/Time Associated Diagnosis Comments US BREAST OUTSIDE IMAGES 09/13/2024 2:28 PM EST documented in this encounter Results * US BREAST OUTSIDE IMAGES (09/13/2024 2:28 PM EST) Anatomical Region Laterality Modality Breast Mammography 09/13/2024 2:28 PM EST us External Provider IMG BI PROCEDURES Final Result documented in this encounter Visit Diagnoses Not on filedocumented in this encounter Care Teams Power And Recovery Supervisor Relationship Specialty Start Date End Date Fani Ko APRN [address] [place] [address] PCP - General 10/24/24 documented as of this encounter
--- OUTSIDE RECORDS SUMMARY | 2024-12-22 14:01 | XMS_ITS | Encounter Summary ---
Author Organization Healthcare Address [address] [place] [address] Care Team Providers Care Weatherization Operations Manager Name Role Phone Fani Ko APRN Primary Care Provider +1 -[phone] Encounter Details Date Type Department Care Team (Latest Contact Info) Description 10/26/2024 Travel Social History Tobacco Use Types Packs/Day [...] [facility] [address] [place] [address] Evonne Martinez MD 800 [facility] Krys Scott [address] [address] 12/27/2024 8:00 AM EDT - 12/27/2024 2:15 PM EDT Surgery [facility] [address] [place] [address] Evonne Martinez MD 800 [facility] K[address] Scott [facility] 134 [place] [address] Bilateral mastectomy flat closure [90342 (CPT )] 01/09/2025 2:00 PM EDT Office Visit [facility] Breast Care Center [address] [facility], 2nd [place] [address] Evonne Martinez MD 800 [facility] [address] [place] [address] Scheduled Procedures Name Priority Associated [...] documented as of this encounter Care Teams Weatherization Operations Manager Relationship Specialty Start Date End Date Fani Ko APRN [address] [place] [address] PCP - General 10/24/24 documented as of this encounter
--- OUTSIDE RECORDS SUMMARY | 2024-12-22 14:01 | XMS_ITS | Encounter Summary ---
Author Organization Healthcare Address [address] [place] [address] Care Team Providers Care Pipe Testing Technician Name Role Phone Fani Ko APRN Primary Care Provider +1 -[phone] Encounter Details Date Type Department Care Team (Latest Contact Info) Description 11/08/2024 Travel Social History Tobacco Use Types Packs/Day [...] [facility] [address] [place] [address] Evonne Martinez MD 800 [facility] Krys Scott [address] [address] 12/27/2024 8:00 AM EDT - 12/27/2024 2:15 PM EDT Surgery [facility] [address] [place] [address] Evonne Martinez MD 800 [facility] Krys Scott [facility] [address] [place] [address] Bilateral mastectomy flat closure [13371 (CPT )] 01/09/2025 2:00 PM EDT Office Visit [facility] Breast Care Center [address] [facility], 2nd [place] [address] Evonne Martinez MD 800 [facility] K[address] [place] [address] Scheduled Procedures Name Priority Associated [...] documented as of this encounter Care Teams Pipe Testing Technician Relationship Specialty Start Date End Date Fani Ko APRN [address] [place] [address] PCP - General 10/24/24 documented as of this encounter
--- OUTSIDE RECORDS SUMMARY | 2024-12-22 14:01 | XMS_ITS | Encounter Summary ---
Author Organization Healthcare Address [address] [place] [address] Care Team Providers Care Acidizer Name Role Phone Fani Ko APRN Primary Care Provider +1 -[phone] Encounter Details Date Type Department Care Team (Late Contact Info) Description 10/27/[address] [facility] Breast Care Center [facility] Breast Care Center [place] [address] [address] [facility] [address] [place] [address] Berta Ramirez, RN [facility] Social History Tobacco Use Types Packs/Day Years [...] Encounters Date Type Department Care Team (Late Contact Info) Description 12/27/2024 8:00 AM EDT Hospital Encounter [facility] [address] [place] [address] Evonne Martinez MD 800 [facility] [address] [address] 12/27/2024 8:00 AM EDT - 12/27/2024 2:15 PM EDT Surgery [facility] [address] [place] [address] Evonne Martinez MD 800 [facility] Krys Scott [facility] [address] [place] [address] Bilateral mastectomy flat closure [08521 (CPT )] 01/09/2025 2:00 PM EDT Office Visit [facility] Breast Care Center [address], [address] [place] [address] Evonne Martinez MD 800 [facility] Krys Scott dg [facility] [address] [place] [address] Scheduled Procedures Name Priority Associated [...] documented as of this encounter Care Teams Acidizer Relationship Specialty Start Date End Date Fani Ko APRN [address] [place] [address] PCP - General 10/24/24 documented as of this encounter
--- OUTSIDE RECORDS SUMMARY | 2024-12-22 14:01 | XMS_ITS | Encounter Summary ---
Author Organization Healthcare Address [address] [place] [address] Care Team Providers Care Bag Worker Name Role Phone Fani Ko APRN Primary Care Provider +1 -[phone] Encounter Details Date Type Department Care Team (Late st Contact Info) Description 11/26/2022 Orders Only External Location [address] [place] [address] Provider, External Social History Tobacco [...] Encounter [facility] [address] [place] [address] Evonne Martinez MD 800 [facility] Krys Scott [address] [address] 12/27/2024 8:00 AM EDT - 12/27/2024 2:15 PM EDT Surgery [facility] [address] [place] [address] Evonne Martinez MD 800 [facility] Krys Scott [address] [address] Bilateral mastectomy flat closure [02008 (CPT )] 01/09/2025 2:00 PM EDT Office Visit [facility] [address] , [address]nd [place] [address] Evonne Martinez MD [address] [place] [address] Scheduled Procedures Name Priority Associated Diagnoses Date/Ti me MASTECTOMY, BILATERAL Invasive lobular carcinoma of breast in female 12/27/2024 8:00 AM EDT LYMPHADENECTOMY, AXILLARY Invasive lobular carcinoma of breast in female 12/27/2024 8:00 AM EDT documented as of this encounter Procedures Procedure Name Priority Date/Time Associated Diagnosis Comments MAMMOGRAPHY OUTSIDE IMAGES 11/26/2022 8:16 AM EDT documented in this encounter Results * MAMMOGRAPHY OUTSIDE IMAGES (11/26/2022 8:16 AM EDT) Anatomical Region Laterality Modality Breast Mammography 11/26/2022 8:16 AM EDT us External Provider IMG BI PROCEDURES Final Result documented in this encounter Visit Diagnoses Not on filedocumented in this encounter Care Teams Bag Worker Relationship Specialty Start Date End Date Fani Ko APRN [address] [place] [address] PCP - General 10/24/24 documented as of this encounter
--- OUTSIDE RECORDS SUMMARY | 2024-12-22 14:01 | XMS_ITS | Encounter Summary ---
Author Organization Healthcare Address [address] [place] [address] Care Team Providers Care Fire Control Officer Name Role Phone Fani Ko APRN Primary Care Provider +1 -[phone] Encounter Details Date Type Department Care Team (Latest Contact Info) Description 11/01/2024 Travel Social History Tobacco Use Types Packs/Day [...] [facility] [address] [place] [address] Evonne Martinez MD 800 [facility] Krys Scott [address] [address] 12/27/2024 8:00 AM EDT - 12/27/2024 2:15 PM EDT Surgery [facility] [address] [place] [address] Evonne Martinez MD 800 [facility] Krys Scott [facility] 134 [place] [address] Bilateral mastectomy flat closure [64482 (CPT )] 01/09/2025 2:00 PM EDT Office Visit [facility] Breast Care Center [address] [facility], 2nd [place] [address] Evonne Martinez MD 800 [facility] Krys [address] [place] [address] Scheduled Procedures Name Priority Associated [...] documented as of this encounter Care Teams Fire Control Officer Relationship Specialty Start Date End Date Fani Ko APRN [address] [place] [address] PCP - General 10/24/24 documented as of this encounter
--- OUTSIDE RECORDS SUMMARY | 2024-12-22 14:01 | XMS_ITS | Encounter Summary ---
Author Organization Healthcare Address [address] [place] [id number] Care Team Providers Care Customer Leader Name Role Phone Fani Ko EXCAVATING CONTRACTOR Primary Care Provider +1 -[phone] Encounter Details Date Type Department Care Team (Late st Contact Info) Description 08/31/2024 Orders Only External Location [address] [place] [address] Fani Ko, EXCAVATING CONTRACTOR [address] [place] [address] Social History Tobacco Use Types Packs/Day Years [...] [facility] [address] [place] [address] Evonne Martinez MD 800 [facility] Krys Scott [facility] 134 [place] [address] 12/27/2024 8:00 AM EDT - 12/27/2024 2:15 PM EDT Surgery [facility] [address] [place] [address] Evonne Martinez MD 800 [facility] K[address] [place] [address] Bilateral mastectomy flat closure [78068 (CPT )] 01/09/2025 2:00 PM EDT Office Visit [facility] Breast Care Center [address] [facility], 2nd [place] [address] Evonne Martinez MD 800 [facility] K[address] [place] [address] Scheduled Procedures Name Priority Associated Diagnoses Date/Ti me MASTECTOMY, BILATERAL Invasive lobular carcinoma of breast in female 12/27/2024 8:00 AM EDT LYMPHADENECTOMY, AXILLARY Invasive lobular carcinoma of breast in female 12/27/2024 8:00 AM EDT documented as of this encounter Procedures Procedure Name Priority Date/Time Associated Diagnosis Comments MAMMOGRAPHY OUTSIDE IMAGES UPLOAD 08/31/2024 3:57 PM EST documented in this encounter Results * Mammography Outside Images Upload (08/31/2024 3:57 PM EST) Anatomical Region Laterality Modality Mammography 08/31/2024 3:57 PM EST us Fani Ko APRN IMG BI PROCEDURES Final R esult documented in this encounter Visit Diagnoses Not on filedocumented in this encounter Care Teams Customer Leader Relationship Specialty Start Date End Date Fani Ko APRN [facility]0 [place] [address] PCP - General 10/24/24 documented as of this encounter
--- OUTSIDE RECORDS SUMMARY | 2024-12-22 14:01 | XMS_ITS | Encounter Summary ---
Author Organization Healthcare Address [address] [place] [address] Care Team Providers Care Insurance Assistant Name Role Phone Fani Ko APRN Primary Care Provider +1 -[phone] Encounter Details Date Type Department Care Team (Late Contact Info) Description 10/27/2024 Telephone [facility] Breast Care Center [facility] Breast Care Center [place] [address] [address] [facility] [address] [place] [address] Berta Ramirez, RN [facility] Social History Tobacco [...] 12/27/2024 8:00 AM EDT Hospital Encounter [facility] [address] [place] [address] Evonne Martinez MD 800 [facility] [address] [address] 12/27/2024 8:00 AM EDT - 12/27/2024 2:15 PM EDT [facility] [address] [place] [address] Evonne Martinez MD 800 [facility] Krys Scott [facility] 134 [place] [address] Bilateral mastectomy flat closure [01097 (CPT )] 01/09/2025 2:00 PM EDT Office Visit [facility] Breast Care Center [address]nd [place] [address] Evonne Martinez MD 800 [facility] Krys Scott dg [facility] [address] [place] [address] Scheduled Procedures Name Priority Associated [...] documented as of this encounter Care Teams Insurance Assistant Relationship Specialty Start Date End Date Fani Ko APRN [address] [place] [address] PCP - General 10/24/24 documented as of this encounter
--- OUTSIDE RECORDS SUMMARY | 2024-12-22 14:01 | XMS_ITS | Encounter Summary ---
Author Organization Healthcare Address [address] [place] [address] Care Team Providers Care Surgical Territory Manager Name Role Phone Fani Ko APRN Primary Care Provider +1 -[phone] Encounter Details Date Type Department Care Team (Late st Contact Info) Description 09/12/2018 Orders Only External Location [address] [place] [address] Provider, External Social History Tobacco Use [...] Encounter [facility] [address] [place] [address] Evonne Martinez MD 800 [facility] Krys Scott [address] [address] 12/27/2024 8:00 AM EDT - 12/27/2024 2:15 PM EDT Surgery [facility] 800 [place] [address] Evonne Martinez MD 800 [facility] Krys Scott [address] [address] Bilateral mastectomy flat closure [80709 (CPT )] 01/09/2025 2:00 PM EDT Office Visit [facility] [address] [place], 2nd [place] [address] Evonne Martinez MD [address] [place] [address] Scheduled Procedures Name Priority Associated Diagnoses Date/Ti me MASTECTOMY, BILATERAL Invasive lobular carcinoma of breast in female 12/27/2024 8:00 AM EDT LYMPHADENECTOMY, AXILLARY Invasive lobular carcinoma of breast in female 12/27/2024 8:00 AM EDT documented as of this encounter Procedures Procedure Name Priority Date/Time Associated Diagnosis Comments MAMMOGRAPHY OUTSIDE IMAGES 09/12/2018 9:34 AM EST documented in this encounter Results * MAMMOGRAPHY OUTSIDE IMAGES (09/12/2018 9:34 AM EST) Anatomical Region Laterality Modality Breast Mammography 09/12/2018 9:34 AM EST us External Provider IMG BI PROCEDURES Final Result documented in this encounter Visit Diagnoses Not on filedocumented in this encounter Care Teams Surgical Territory Manager Relationship Specialty Start Date End Date Fani Ko APRN [facility] [place] [address] PCP - General 10/24/24 documented as of this encounter
--- OUTSIDE RECORDS SUMMARY | 2024-12-22 14:01 | XMS_ITS | Encounter Summary ---
Author Organization Healthcare Address [address] [place] [address] Care Team Providers Care Educational Psychologist Name Role Phone ElvirabryanFani APRN Primary Care Provider +1 -[phone] Encounter Details Date Type Department Care Team (Late Contact Info) Description 11/01/2024 Orders Only [facility] [address] [facility], 2nd [place] [address] Evonne Martinez MD 800 [facility] [address] [place] [address] Invasive lobular carcinoma of breast in female (Primary Dx); Invasive lobular carcinoma of breast in female Social History Tobacco Use Types Packs/Day Years [...] Description 12/27/2024 8:00 AM EDT Hospital Encounter [facility] 800 [place] [address] Evonne Martinez MD 800 [facility] Krys Scott [address] [place] [address] 12/27/2024 8:00 AM EDT - 12/27/2024 2:15 PM EDT Surgery [facility] [address] [place] [address] Evonne Martinez MD 800 [facility] [place] [address] [place] [address] Bilateral mastectomy flat closure [78967 (CPT )] 01/09/2025 2:00 PM EDT Office Visit [facility] [address] [facility], 2nd [place] [address] Evonne Martinez MD 800 [facility] Krys Scott [facility] [address] [place] [address] Scheduled Procedures Name Priority Associated [...] documented as of this encounter Care Teams Educational Psychologist Relationship Specialty Start Date End Date Fani Ko APRN [address] [place] [address] PCP - General 10/24/24 documented as of this encounter
--- OUTSIDE RECORDS SUMMARY | 2024-12-22 14:01 | XMS_ITS | Encounter Summary ---
Author Organization Healthcare Address [address] [place] [id number] Care Team Providers Care Salvage Mechanic Name Role Phone Fani Ko APRN Primary Care Provider [phone] Encounter Details Date Type Department Care Team (Late st Contact Info) Description 06/02/2021 Orders Only External Location [address] [place] [address] Ariadna Banegas, PLAYGROUND ATTENDANT [address] [place] [address] Social History Tobacco Use Types Packs/Day Years [...] [facility] [address] [place] [address] Evonne Martinez MD [address] [facility] Krys Scott [address] [address] 12/27/2024 8:00 AM EDT - 12/27/2024 2:15 PM EDT Surgery [facility] [address] [place] [address] Evonne Martinez MD [address] [facility] [address] [facility] [address] [place] [address] Bilateral mastectomy flat closure [17375 (CPT )] 01/09/2025 2:00 PM EDT Office Visit [facility] [address] [place] [address] Evonne Martinez MD [address] [facility] K[address] Scott [address] [place] [address] Scheduled Procedures Name Priority Associated Diagnoses Date/Ti me MASTECTOMY, BILATERAL Invasive lobular carcinoma of breast in female 12/27/2024 8:00 AM EDT LYMPHADENECTOMY, AXILLARY Invasive lobular carcinoma of breast in female 12/27/2024 8:00 AM EDT documented as of this encounter Procedures Procedure Name Priority Date/Time Associated Diagnosis Comments MAMMOGRAPHY OUTSIDE IMAGES UPLOAD 06/02/2021 9:19 AM EST documented in this encounter Results * Mammography Outside Images Upload (06/02/2021 9:19 AM EST) Anatomical Region Laterality Modality Mammography 06/02/2021 9:19 AM EST us Ariadna Banegas PLAYGROUND ATTENDANT IMG BI PROCEDURES Final Re sult documented in this encounter Visit Diagnoses Not on filedocumented in this encounter Care Teams Salvage Mechanic Relationship Specialty Start Date End Date Fani Ko APRN [address] [place] [address] PCP - General 10/24/24 documented as of this encounter
[2024-12-22 14:08] VITALS: BP 152/92; PULSE 51; RESP 12; O2SAT 98; BMI 37.5
--- NOTE | 2024-12-22 14:17 | EXP.PAIN.SOA ---
[facility] Disclaimer: The information contained in this section may have been updated after the patient was seen, as this information can be updated by other users. Medical History Depression Osteoarthritis Hypothyroidism HTN (hypertension) Diabetes Surgical History Surgical history unknown Family History Other Unknown family medical history Social History Smoking Status: Unknown if ever smoked alcohol intake: never substance use type: denies use current occupational status: other Travel in the last 8 weeks?: None household members: significant other housing: house current occupation: [employer] caffeine: No Have you lived/traveled outside [place] in past 30 days?: No Contact w/someone who lives/traveled outside US past 30 days?: No Exposure to someone with infectious disease in past 14 days?: No Do you have a fever (greater than 100.4 F or 38 C)?: No Have you tested positive for COVID-19?: No Exposed to someone with COVID-19 in past 14 days?: No Do you have a sore throat?: No Do you have a cough?: No Do you have any weakness?: No Do you have any diarrhea?: No Are you experiencing any unusual bleeding?: No Do you have any muscle aches/pain?: No Do you have any abdominal pain?: No Are you experiencing loss of taste or smell?: No PM Subjective & Objective Subjective Subjective:: Patient is a pleasant 59-year-old female who presents today for 3-month follow-up. Today she rates her pain a 3 out of 10. Patient denies any new falls or injuries. She does state overall she is still been getting significant relief with her last procedure. She states that occasionally she will have some increased pain but typically at most it goes to a 3 and feels like this is still very manageable. Patient did have a left genicular RFA in July that did have significant improvement. She does make mention today that she was just recently diagnosed with stage I breast cancer and she is scheduled for surgery on Wednesday. Her J Luis has been reviewed and is appropriate. Review of Systems: General: No recent weight changes, no fever, no sleep disturbances Respiratory: No cough, no shortness of air, no recurring pulmonary infections Cardiovascular/peripheral vascular: No chest pain, no palpitations, no edema, no shortness of breath Gastrointestinal: No new onset incontinence, normal bowel movements reported Genitourinary: No new onset incontinence Musculoskeletal: Left knee pain Psychiatric: [Normal mood/affect] Neurological: [Denies weakness in extremities], [denies balance issues] Pain at rest (0-10 scale): 3 Objective Objective:: Physical Exam: General: Alert and oriented x3, no acute distress, pleasant and cooperative Lungs: Respirations even and unlabored, symmetrical chest expansion Eyes: PERRL Musculoskeletal: Flexion and extension of left knee somewhat guarded secondary to pain, [antalgic gait noted] Neurological: Speech clear, no gross sensory deficit Has patient had previous pain injection?: No Conservative treatment options previously tried: Home exercise plan Length of treatment: Longer than 12 weeks Meds Home Medications and Allergies Home Medications ?Medication ?Instructions ?Recorded ?Confirmed ?Type duloxetine 60 mg capsule,delayed 60 mg PO DAILY mood 90 days #90 04/28/18 12/22/24 History release caps zolpidem 10 mg tablet 10 mg PO HS sleep 30 days #30 tabs 04/28/18 12/22/24 History conjugated estrogens 0.3 mg tablet 0.3 mg PO DAILY 11/28/23 12/22/24 History (Premarin) hydrochlorothiazide 50 mg tablet 50 mg PO DAILY 11/28/23 12/22/24 History hydrocodone 5 mg-acetaminophen 325 1 tab PO Q6HP PRN Pain 11/28/23 12/22/24 History mg tablet metformin 750 mg tablet,extended 750 mg PO QPMWITHMEAL Diabetes 11/28/23 12/22/24 History release 24 hr nadolol 20 mg tablet 20 mg PO DAILY 11/28/23 12/22/24 History simvastatin 80 mg tablet 80 mg PO HS 11/28/23 12/22/24 History New Prescriptions to Start Prescriptions: Allergies Allergy/AdvReac Type Severity Reaction Status Date / Time Penicillins Allergy Verified 03/14/24 09:39 Assessment and Plan *Assessment and plan (1) Chronic pain of left knee: Status: Acute Category: Medical Code(s): M25.562 - Pain in left knee; G89.29 - Other chronic pain Plan We did discuss over her upcoming procedure. She is having this done at and they are hoping that they are able to remove it all along her left breast. She did state that it was in a couple of her lymph nodes under that arm. Patient was told that we tentatively would give a 6-month follow-up however with everything going on she was counseled that she can call at her convenience for her next follow-up appointment. Patient agrees with this plan of care. Patient has been instructed to contact the clinic with any concerns before the next appointment. Dr. Schafer has reviewed this note and agrees with this plan of care. This note was dictated using voice recognition software and make contain errors or omissions. All injections are used with Lidocaine, Bupivacaine and dexamethasone. Occasionally urine drug screen is needed to verify patient's compliance with our office pain contract. This is ordered based off specific treatments related to chronic pain with the potential to abuse certain medications.
== END 2024-12-22 23:59 | disposition home or self-care (01) ==
LOC: SC.PAIN 13:58
PROVIDERS: PCP Nurse Practitioner; Visit Provider Nurse Practitioner Family
DX: M25.562 Pain in left knee (principal); G89.29 Other chronic pain; C50.919 Malignant neoplasm of unspecified site of unspecified female breast
CPT/HCPCS: 99212; G0463